=== PATIENT | female | born 1960 | race Caucasian/White ===

== ENCOUNTER → 2017-04-30 10:09 | Outpatient (POV) | payer MEDICAID, SELFPAY ==
[2017-04-30 10:27] VITALS: BP 102/81; PULSE 55; RESP 16; O2SAT 98; BMI 25.8
--- NOTE | 2017-04-30 11:01 | HMH.PAINSOAP ---
[facility] [place] Pain Management SOAP Note Subjective:: This patient is a pleasant 56-year-old white female who we have been treating for low back pain with lumbar radiculopathy symptoms. She is currently managed with [place] 7.5 mg 1 tablet 4 times a day. She is also on gabapentin 600 mg 3 times a day. These decrease her pain by 50-60%. She has had no side effects and she is able to continue with activities of daily living. She is doing well with her medications. [place] and urine drug screen are all appropriate. [facility] #[id number]. We will refill her medications. We will give her 2 months worth of [place] 7.5 mg 1 tablet 4 times a day. We will see her back in 3 months. She can sampler pickup the third month here in the pain clinic. Objective:: Alert and oriented ?3 no acute distress. Patient has normal gait. Motor strength of the lower extremities is 5/5. There is no gross sensory deficit. 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 Plan:: We will refill her medications. We will give her 2 months worth of [place] 7.5 mg 1 tablet 4 times a day. We will see her back in 3 months. She can sampler pickup the third month here in the pain clinic.
[2017-04-30 13:09] LABS: Amphetamine/Metha Screen,Urine Negative ng/mL (<1000); Barbiturates Screen,Urine Negative ng/mL (<200); Benzodiazepines Screen,Urine Negative ng/mL (200); Cannabinoid Screen,Urine Negative ng/mL (<50); Cocaine Screen,Urine Negative ng/g (<300); Methadone Screen,Urine Negative ng/mL (<300); Opiate Screen,Urine Positive ng/mL (<300); Phencyclidine Screen,Urine Negative ng/mL (<25)
[2017-05-04 13:20] LABS: Codeine Negative (Cutoff=100); Hydrocodone Positive (.); Hydromorphone Negative (Cutoff=100); Morphine Negative (Cutoff=100)
[2017-05-04 18:23] LABS: Opiates Positive (.)
--- NOTE | 2017-05-08 12:11 | PC.PHONENOTE ---
called in RX for gabapentin 600mg TID with 2 refills to [facility]
== END ==
PROVIDERS: Family Provider Emergency Medicine; PCP Nurse Practitioner Family; Visit Provider Anesthesiology
DX: M54.16 Radiculopathy, lumbar region (principal); Z79.899 Other long term (current) drug therapy
CPT/HCPCS: 99212; 80305; 80361; 80365; G0480

== ENCOUNTER → 2017-06-20 10:26 | Outpatient (REF) | payer MEDICAID, SELFPAY ==
[2017-06-20 14:08] LABS: Basophils % 0.7 % (0.1-2.0); Eosinophils # 0.1 K/mm3 (0.0-0.4); Eosinophils % 1.5 % (0.1-12.0); Hematocrit 45.7 % (37.0-47.0); Lymphocytes # 2.7 K/mm3 (0.7-4.5); Mean Corpuscular HGB Conc 32.9 g/dL (31.8-35.4); Mean Corpuscular Hemoglobin 31.3 pg (27.0-31.2); Mean Corpuscular Volume 95.2 fl (81-99); Mean Platelet Volume 8.2 fl (7.4-10.4); Monocytes # 0.4 K/mm3 (0.1-1.0); Monocytes % 5.8 % (1.7-9.3); Neutrophils # 3.3 K/mm3 (1.8-7.8); Platelet Count 304 K/mm3 (142-424); Red Blood Count 4.79 M/mm3 (4.20-5.40); Red Cell Distribution Width 13.3 % (11.5-17.5); White Blood Count 6.5 K/mm3 (4.8-10.8)
[2017-06-20 14:19] LABS: Alanine Aminotransferase 18 U/L (12-78); Albumin Level 3.7 gm/dL (3.4-5.0); Albumin/Globulin Ratio 0.9 (1.1-1.8); Alkaline Phosphatase 159 U/L (46-116); Anion Gap 13.5 mEq/L (5-15); Aspartate Amino Transferase 21 U/L (15-37); Bilirubin,Total 0.4 mg/dL (0.2-1.0); Blood Urea Nitrogen 9 mg/dL (7-18); Calcium 9.5 mg/dL (8.5-10.1); Carbon Dioxide 30 mmol/L (21.0-32.0); Chloride 104 mmol/L (98-107); Chol/HDL Ratio 5.2 (1-3.5); Cholesterol 257 mg/dL (140-200); Creatinine,Serum 0.98 mg/dL (0.55-1.02); Estimated Glomerular Filt Rate 59 ml/min (>60); Free T4 (Free Thyroxine) 1.35 ng/dl (0.76-1.46); GFR (African American) 71 ML/MIN (>60); Globulin 3.9 gm/dl (1.3-3.2); Glucose 90 mg/dL (74-106); HDL Cholesterol 49 mg/dL (29-89); LDL Cholesterol 172 mg/dL (0-130); Potassium 4.5 mmoL/L (3.5-5.1); Sodium 143 mmol/L (136-145); Thyroid Stimulating Hormone 1.96 uIU/ml (0.358-3.740); Total Protein,Serum 7.6 gm/dL (6.4-8.2); Triglycerides 182 mg/dL (30-200); VLDL Cholesterol 36 mg/dL (0-40)
[2017-06-21 06:24] LABS: Vitamin D 25 Hydroxy 15.4 ng/mL (30.0-100.0)
== END ==
LOC: LAB 10:26
PROVIDERS: Visit Provider Emergency Medicine
DX: E03.9 Hypothyroidism, unspecified (principal); R53.83 Other fatigue; E55.9 Vitamin D deficiency, unspecified
CPT/HCPCS: 80053; 80061; 82652; 84439; 84443; 85025

== ENCOUNTER → 2017-07-30 08:36 | Outpatient (POV) | payer MEDICAID, SELFPAY ==
[2017-07-30 08:46] VITALS: BP 110/70; PULSE 60; RESP 18; O2SAT 99; BMI 25.8
--- NOTE | 2017-07-30 09:00 | HMH.PAINSOAP ---
[facility] Pain Management SOAP Note Subjective:: Patient is a pleasant 57-year-old white female who presents today for medication refills. Patient is currently being treated for pain secondary to degenerative disc disease of the lumbar spine with lumbar radiculopathy symptoms. Patient has had injections in the past with good relief. She is currently being medically managed with [place] 7.5 mg 1 tab p.o. 4 times daily and gabapentin 600 mg 1 tab p.o. 3 times daily. He denies side effects to the medication. She states that helps 80-90% with her pain. Patient's MARINE #[id number] reviewed and appropriate. Since the urine drug screen appropriate in the past. ROS General: no recent weight change, no fever, no sleep disturbances Respiratory: no cough, no shortness of air, no recurring pulmonary infections Cardiovascular/Peripheral Vascular: No chest pain, No palpitations, no edema, no shortness of breath. Gastrointestinal: no incontinence, normal bowel movements reported Genitourinary: no incontinence Musculoskeletal:back Pain Psychiatric: normal mood/ affect Neurological: [denies weakness in extremities], [denies balance issues] Objective:: Physical Exam General: Alert and oriented x3, no acute distress, pleasant and cooperative, [on room air] Lungs: Resps E/U, Symmetrical chest expansion, Eyes: PERRL Musculoskeletal: Flexion and extension of lumbar spine somewhat guarded secondary to pain, deep tendon reflexes normal, strength in upper and lower extremities [5/5], slightly antalgic gait noted Neurological: speech clear, kennel keeper equal, no gross sensory deficits Assessment:: Degenerative disease of the lumbar spine, lumbar radiculopathy Plan:: We will refill her medications we will give HER-2 months worth of the [place] 7.5 mg 1 tab p.o. 4 times daily and gabapentin 600 mg 1 tab p.o. 3 times daily. Patient's MARINE and UDS reviewed. Dr. Watson is reviewed this chart and agrees with this plan of care. We will follow-up with her in 3 months. Patient can peanut picker her third month in the interim. Patient has been instructed to call the office if she has any issues prior to her next appointment. Patient has been prescribed a controlled substance after being counseled on the medication, medication safety, and possible side effects. MARINE report has been obtained and reviewed prior to prescription and found to be appropriate. Opioid contract was reviewed and signed by the patient, and that they have agreed to all of the terms set forth by our compliance program. This note was dictated using voice recognition software and may contain errors or omissions
--- NOTE | 2017-07-30 09:05 | P.CONS_ITS ---
[facility] Pain Management SOAP Note Subjective:: Patient is a pleasant 57-year-old white female who presents today for medication refills. Patient is currently being treated for pain secondary to degenerative disc disease of the lumbar spine with lumbar radiculopathy symptoms. Patient has had injections in the past with good relief. She is currently being medically managed with [place] 7.5 mg 1 tab p.o. 4 times daily and gabapentin 600 mg 1 tab p.o. 3 times daily. He denies side effects to the medication. She states that helps 80-90% with her pain. Patient's MARINE # [id number] reviewed and appropriate. Since the urine drug screen appropriate in the past. ROS General: no recent weight change, no fever, no sleep disturbances Respiratory: no cough, no shortness of air, no recurring pulmonary infections Cardiovascular/Peripheral Vascular: No chest pain, No palpitations, no edema, no shortness of breath. Gastrointestinal: no incontinence, normal bowel movements reported Genitourinary: no incontinence Musculoskeletal:back Pain Psychiatric: normal mood/ affect Neurological: [denies weakness in extremities], [denies balance issues] Objective:: Physical Exam General: Alert and oriented x3, no acute distress, pleasant and cooperative, [ on room air] Lungs: Resps E/U, Symmetrical chest expansion, Eyes: PERRL Musculoskeletal: Flexion and extension of lumbar spine somewhat guarded secondary to pain, deep tendon reflexes normal, strength in upper and lower extremities [5/5], slightly antalgic gait noted Neurological: speech clear, natural resource specialist equal, no gross sensory deficits Assessment:: Degenerative disease of the lumbar spine, lumbar radiculopathy Plan:: We will refill her medications we will give HER-2 months worth of the [place] 7.5 mg 1 tab p.o. 4 times daily and gabapentin 600 mg 1 tab p.o. 3 times daily. Patient's MARINE and UDS reviewed. Dr. Watson is reviewed this chart and agrees with this plan of care. We will follow-up with her in 3 months. Patient can pick pulling machine operator her third month in the interim. Patient has been instructed to call the office if she has any issues prior to her next appointment. Patient has been prescribed a controlled substance after being counseled on the medication, medication safety, and possible side effects. MARINE report has been obtained and reviewed prior to prescription and found to be appropriate. Opioid contract was reviewed and signed by the patient, and that they have agreed to all of the terms set forth by our compliance program. This note was dictated using voice recognition software and may contain errors or omissions
== END ==
PROVIDERS: Family Provider Emergency Medicine; PCP Nurse Practitioner Family; Visit Provider Clinical Nurse Specialist Family Health
DX: M54.16 Radiculopathy, lumbar region (principal)
CPT/HCPCS: 99212

== ENCOUNTER → 2017-10-01 10:40 | Outpatient (CLI) | payer MEDICAID, SELFPAY ==
[2017-10-01 12:51] LABS: Amphetamine/Metha Screen,Urine Negative ng/mL (<1000); Barbiturates Screen,Urine Negative ng/mL (<200); Benzodiazepines Screen,Urine Negative ng/mL (<200); Cannabinoid Screen,Urine Negative ng/mL (<50); Cocaine Screen,Urine Negative ng/mL (<300); Methadone Screen,Urine Negative ng/mL (<300); Opiate Screen,Urine Positive ng/mL (<300); Phencyclidine Screen,Urine Negative ng/mL (<25)
[2017-10-08 13:10] LABS: Codeine Negative (Cutoff=100); Hydrocodone Positive (.); Hydromorphone Positive (.); Morphine Negative (Cutoff=100)
[2017-10-10 08:44] LABS: Opiates Positive (.)
== END ==
PROVIDERS: Visit Provider Clinical Nurse Specialist Family Health
DX: Z79.899 Other long term (current) drug therapy (principal)
CPT/HCPCS: 80305; 80361; 80365; G0480

== ENCOUNTER → 2017-10-29 08:38 | Outpatient (POV) | payer MEDICAID, SELFPAY ==
[2017-10-29 09:06] VITALS: BP 101/64; PULSE 68; RESP 18; O2SAT 99; BMI 24.5
--- NOTE | 2017-10-29 09:13 | HMH.PAINSOAP ---
[facility] Pain Management SOAP Note Subjective:: Patient is a pleasant 57-year-old white female who presents today for medication refills. Patient is currently being managed for pain secondary to degenerative disc disease lumbar spine with lumbar radiculopathy. Patient is currently on [place] 7.5 mg 1 p.o. 4 times daily along with gabapentin 600 mg 1 tab p.o. 3 times daily. Patient states it helps up to 80%. Patient's MARINE #[id number] reviewed and appropriate. Patient's urine drug screen in the past has been appropriate. Patient has had injections in the past with good relief. Patient states she has been having some mid back pain during times of standing for long periods and helping her grandchildren with homework. Patient and I discussed adding Voltaren gel and an additional gabapentin to her regimen. Patient is interested in this. She rates her pain a 5 out of 10 today she denies side effects to any of her medications. ROS General: no recent weight change, no fever, no sleep disturbances Respiratory: no cough, no shortness of air, no recurring pulmonary infections Cardiovascular/Peripheral Vascular: No chest pain, No palpitations, no edema, no shortness of breath. Gastrointestinal: no incontinence, normal bowel movements reported Genitourinary: no incontinence Musculoskeletal: Back pain Psychiatric: normal mood/ affect Neurological: [denies weakness in extremities], [denies balance issues] Objective:: Physical Exam General: Alert and oriented x3, no acute distress, pleasant and cooperative, [on room air] Lungs: Resps E/U, Symmetrical chest expansion, Eyes: PERRL Musculoskeletal: Flexion and extension of lumbar spine somewhat guarded secondary to pain, deep tendon reflexes normal, strength in upper and lower extremities [5/5], slightly antalgic gait noted Neurological: speech clear, integrity analyst equal, no gross sensory deficits Assessment:: Degenerative disc disease of lumbar spine with lumbar radiculopathy Plan:: We will refill the patient's [place] 7.5 mg 1 tab p.o. 4 times daily and increase her gabapentin to 600 mg 1 p.o. 4 times daily. We will also call in Voltaren gel 1% 4 g applied to the painful area twice daily. We will give her 2 months worth of prescriptions and she can bead picker the third month in the interim. Dr. Watson is reviewed this chart and agrees with this plan of care. Patient has been prescribed a controlled substance after being counseled on the medication, medication safety, and possible side effects. MARINE report has been obtained and reviewed prior to prescription and found to be appropriate. Opioid contract was reviewed and signed by the patient, and that they have agreed to all of the terms set forth by our compliance program. This note was dictated using voice recognition software and may contain errors or omissions
--- NOTE | 2017-10-29 09:16 | P.CONS_ITS ---
[facility] Pain Management SOAP Note Subjective:: Patient is a pleasant 57-year-old white female who presents today for medication refills. Patient is currently being managed for pain secondary to degenerative disc disease lumbar spine with lumbar radiculopathy. Patient is currently on [place] 7.5 mg 1 p.o. 4 times daily along with gabapentin 600 mg 1 tab p.o. 3 times daily. Patient states it helps up to 80%. Patient's MARINE #[id number] reviewed and appropriate. Patient's urine drug screen in the past has been appropriate. Patient has had injections in the past with good relief. Patient states she has been having some mid back pain during times of standing for long periods and helping her grandchildren with homework. Patient and I discussed adding Voltaren gel and an additional gabapentin to her regimen. Patient is interested in this. She rates her pain a 5 out of 10 today she denies side effects to any of her medications. ROS General: no recent weight change, no fever, no sleep disturbances Respiratory: no cough, no shortness of air, no recurring pulmonary infections Cardiovascular/Peripheral Vascular: No chest pain, No palpitations, no edema, no shortness of breath. Gastrointestinal: no incontinence, normal bowel movements reported Genitourinary: no incontinence Musculoskeletal: Back pain Psychiatric: normal mood/ affect Neurological: [denies weakness in extremities], [denies balance issues] Objective:: Physical Exam General: Alert and oriented x3, no acute distress, pleasant and cooperative, [on room air] Lungs: Resps E/U, Symmetrical chest expansion, Eyes: PERRL Musculoskeletal: Flexion and extension of lumbar spine somewhat guarded secondary to pain, deep tendon reflexes normal, strength in upper and lower extremities [5/5], slightly antalgic gait noted Neurological: speech clear, repair table operator equal, no gross sensory deficits Assessment:: Degenerative disc disease of lumbar spine with lumbar radiculopathy Plan:: We will refill the patient's [place] 7.5 mg 1 tab p.o. 4 times daily and increase her gabapentin to 600 mg 1 p.o. 4 times daily. We will also call in Voltaren gel 1% 4 g applied to the painful area twice daily. We will give her 2 months worth of prescriptions and she can milk pickup driver the third month in the interim. Dr. Watson is reviewed this chart and agrees with this plan of care. Patient has been prescribed a controlled substance after being counseled on the medication, medication safety, and possible side effects. MARINE report has been obtained and reviewed prior to prescription and found to be appropriate. Opioid contract was reviewed and signed by the patient, and that they have agreed to a ll of the terms set forth by our compliance program. This note was dictated using voice recognition software and may contain errors or omissions
== END ==
PROVIDERS: Family Provider Emergency Medicine; PCP Nurse Practitioner Family; Visit Provider Clinical Nurse Specialist Family Health
DX: M51.16 Intervertebral disc disorders with radiculopathy, lumbar region (principal)
CPT/HCPCS: 99213

== ENCOUNTER → 2018-01-21 08:41 | Outpatient (POV) | payer MEDICAID, SELFPAY ==
[2018-01-21 09:28] VITALS: BP 129/76; PULSE 63; RESP 18; O2SAT 98; BMI 24.4
--- NOTE | 2018-01-21 09:41 | HMH.PAINSOAP ---
[facility] Pain Management SOAP Note Subjective:: Patient is a pleasant 57-year-old white female who presents today for medication refills. Patient is currently being managed for pain secondary to degenerative disc disease lumbar spine with lumbar radiculopathy. She is currently rating her pain a 3 out of 10 and states she is doing well on her regimen of [place] 7.5 mg 1 p.o. 4 times daily gabapentin 600 mg 1 p.o. 4 times a day and Voltaren gel. She states it helps up to 80%. MARINE #[id number] reviewed and appropriate. Patient's urine drug screen reviewed and appropriate in the past. ROS General: no recent weight change, no fever, no sleep disturbances Respiratory: no cough, no shortness of air, no recurring pulmonary infections Cardiovascular/Peripheral Vascular: No chest pain, No palpitations, no edema, no shortness of breath. Gastrointestinal: no incontinence, normal bowel movements reported Genitourinary: no incontinence Musculoskeletal: Back pain Psychiatric: normal mood/ affect Neurological: [denies weakness in extremities], [denies balance issues] Objective:: Physical Exam General: Alert and oriented x3, no acute distress, pleasant and cooperative, [on room air] Lungs: Resps E/U, Symmetrical chest expansion, Eyes: PERRL Musculoskeletal: Flexion and extension of lumbar spine somewhat guarded secondary to pain, deep tendon reflexes normal, strength in upper and lower extremities [5/5], slightly antalgic gait noted Neurological: speech clear, biomedical field service engineer equal, no gross sensory deficits Assessment:: Degenerative disc disease lumbar spine with lumbar radiculopathy Plan:: We will refill the patient's [place] 7.5 mg 1 tab p.o. 4 times daily and increase her gabapentin to 800 mg 1 p.o. 4 times a day. She will continue with her Voltaren gel. We will give her 2 months worth of prescriptions she can pick her third month at the in the interim. Dr. Watson is reviewed this chart and agrees with this plan of care. Patient has been prescribed a controlled substance after being counseled on the medication, medication safety, and possible side effects. MARINE report has been obtained and reviewed prior to prescription and found to be appropriate. Opioid contract was reviewed and signed by the patient, and that they have agreed to all of the terms set forth by our compliance program. This note was dictated using voice recognition software and may contain errors or omissions
--- NOTE | 2018-01-21 09:45 | P.CONS_ITS ---
[facility] Pain Management SOAP Note Subjective:: Patient is a pleasant 57-year-old white female who presents today for medication refills. Patient is currently being managed for pain secondary to degenerative disc disease lumbar spine with lumbar radiculopathy. She is currently rating her pain a 3 out of 10 and states she is doing well on her regimen of [place] 7.5 mg 1 p.o. 4 times daily gabapentin 600 mg 1 p.o. 4 times a day and Voltaren gel. She states it helps up to 80%. MARINE #[id number] reviewed and appropriate. Patient's urine drug screen reviewed and appropriate in the past. ROS General: no recent weight change, no fever, no sleep disturbances Respiratory: no cough, no shortness of air, no recurring pulmonary infections Cardiovascular/Peripheral Vascular: No chest pain, No palpitations, no edema, no shortness of breath. Gastrointestinal: no incontinence, normal bowel movements reported Genitourinary: no incontinence Musculoskeletal: Back pain Psychiatric: normal mood/ affect Neurological: [denies weakness in extremities], [denies balance issues] Objective:: Physical Exam General: Alert and oriented x3, no acute distress, pleasant and cooperative, [on room air] Lungs: Resps E/U, Symmetrical chest expansion, Eyes: PERRL Musculoskeletal: Flexion and extension of lumbar spine somewhat guarded secondary to pain, deep tendon reflexes normal, strength in upper and lower extremities [5/5], slightly antalgic gait noted Neurological: speech clear, user support analyst supervisor equal, no gross sensory deficits Assessment:: Degenerative disc disease lumbar spine with lumbar radiculopathy Plan:: We will refill the patient's [place] 7.5 mg 1 tab p.o. 4 times daily and increase her gabapentin to 800 mg 1 p.o. 4 times a day. She will continue with her Voltaren gel. We will give her 2 months worth of prescriptions she can pick her third month at the in the interim. Dr. Watson is reviewed this chart and agrees with this plan of care. Patient has been prescribed a controlled substance after being counseled on the medication, medication safety, and possible side effects. MARINE report has been obtained and reviewed prior to prescription and found to be appropriate. Opioid contract was reviewed and signed by the patient, and that they have agreed to all of the terms set forth by our compliance program. This note was dictated using voice recognition software and may contain errors or omissions
[2018-01-21 11:14] LABS: Amphetamine/Metha Screen,Urine Negative ng/mL (<1000); Barbiturates Screen,Urine Negative ng/mL (<200); Benzodiazepines Screen,Urine Negative ng/mL (<200); Cannabinoid Screen,Urine Negative ng/mL (<50); Cocaine Screen,Urine Negative ng/mL (<300); Methadone Screen,Urine Negative ng/mL (<300); Opiate Screen,Urine Positive ng/mL (<300); Phencyclidine Screen,Urine Negative ng/mL (<25)
[2018-01-27 10:08] LABS: Codeine Negative (Cutoff=100); Hydrocodone Positive (.); Hydromorphone Positive (.); Morphine Negative (Cutoff=100)
[2018-01-28 06:30] LABS: Opiates Positive (.)
== END ==
PROVIDERS: PCP Emergency Medicine; Visit Provider Clinical Nurse Specialist Family Health
DX: M51.16 Intervertebral disc disorders with radiculopathy, lumbar region (principal); Z79.899 Other long term (current) drug therapy
CPT/HCPCS: 80305; 80361; 80365; 99213; G0480

== ENCOUNTER → 2018-04-22 08:54 | Outpatient (POV) | payer MEDICAID, SELFPAY ==
[2018-04-22 09:10] VITALS: BP 154/96; PULSE 68; RESP 18; O2SAT 98; BMI 23.2
--- NOTE | 2018-04-22 09:11 | HMH.PAINSOAP ---
[facility] Pain Management SOAP Note Subjective:: Patient is a pleasant 58-year-old white female who presents today for follow-up and medication refills. She is currently on [place] 7.5 mg 1 tab p.o. 4 times daily along with gabapentin 800 mg 1 p.o. 4 times daily she is also utilizing Voltaren gel. Patient states she is doing extremely well rating her pain a 3 out of 10 however she does have quite a few muscle spasms in her back. Patient denies side effects from medication [place] reviewed and appropriate. ROS General: no recent weight change, no fever, no sleep disturbances Respiratory: no cough, no shortness of air, no recurring pulmonary infections Cardiovascular/Peripheral Vascular: No chest pain, No palpitations, no edema, no shortness of breath. Gastrointestinal: no incontinence, normal bowel movements reported Genitourinary: no incontinence Musculoskeletal: Back pain, leg pain Psychiatric: normal mood/ affect Neurological: [denies weakness in extremities], [denies balance issues] Objective:: Physical Exam General: Alert and oriented x3, no acute distress, pleasant and cooperative, [on room air] Lungs: Resps E/U, Symmetrical chest expansion, Eyes: PERRL Musculoskeletal: Flexion and extension of lumbar spine somewhat guarded secondary to pain, deep tendon reflexes normal, strength in upper and lower extremities [5/5], slightly antalgic gait noted Neurological: speech clear, physics department chair equal, no gross sensory deficits Assessment:: Degenerative disc disease lumbar spine with lumbar radiculopathy Plan:: We will refill the patient's [place] 7.5 mg 1 tab p.o. 4 times daily along with her gabapentin 800 mg 1 p.o. 4 times daily and Voltaren gel. We will also start her on Zanaflex 2 mg daily as needed. We will give HER-2 months worth of prescriptions and she can picking supervisor the third month in the interim. Patient has been prescribed a controlled substance after being counseled on the medication, medication safety, and possible side effects. MARINE report has been obtained and reviewed prior to prescription and found to be appropriate. Opioid contract was reviewed and signed by the patient, and that they have agreed to all of the terms set forth by our compliance program. Dr. Watson has reviewed this note and agrees with this plan of care. This note was dictated using voice recognition software and may contain errors or omissions
[2018-04-22 11:36] VITALS: BP 164/86; PULSE 78; RESP 18; O2SAT 98; BMI 32.5
--- NOTE | 2018-05-01 10:14 | PC.PHONENOTE ---
called in Rx for Gabapentin 800mg QID with 2 refills to pt's pharmacy per provider order.
== END ==
PROVIDERS: PCP Emergency Medicine; Visit Provider Clinical Nurse Specialist Family Health
DX: M51.16 Intervertebral disc disorders with radiculopathy, lumbar region (principal)
CPT/HCPCS: 99213

== ENCOUNTER → 2018-06-25 09:54 | Outpatient (CLI) | payer MEDICAID, SELFPAY ==
[2018-06-25 12:52] LABS: Amphetamine/Metha Screen,Urine Negative ng/mL (<1000); Barbiturates Screen,Urine Negative ng/mL (<200); Benzodiazepines Screen,Urine Negative ng/mL (<200); Cannabinoid Screen,Urine Negative ng/mL (<50); Cocaine Screen,Urine Negative ng/mL (<300); Methadone Screen,Urine Negative ng/mL (<300); Opiate Screen,Urine Positive ng/mL (<300); Phencyclidine Screen,Urine Negative ng/mL (<25)
[2018-07-01 12:09] LABS: Codeine Negative (Cutoff=100); Hydrocodone Positive (.); Hydromorphone Positive (.); Morphine Negative (Cutoff=100)
[2018-07-01 12:58] LABS: Opiates Positive (.)
== END ==
PROVIDERS: Visit Provider Clinical Nurse Specialist Family Health
DX: Z79.899 Other long term (current) drug therapy (principal)
CPT/HCPCS: 80305; 80361; 80365; G0480

== ENCOUNTER → 2018-07-15 09:25 | Outpatient (POV) | payer MEDICAID, SELFPAY ==
[2018-07-15 09:32] VITALS: BP 100/50; PULSE 62; RESP 18; O2SAT 98; BMI 23.3
--- NOTE | 2018-07-15 09:34 | HMH.PAINSOAP ---
[facility] Pain Management SOAP Note Subjective:: Patient is a pleasant 51-year-old white female who presents today for follow-up and medication refills. She rates her pain a 3 out of 10 today. She is been more active with the weather improving, and states that she is spending a lot of time outdoors with her grandson. The patient currently is on [place] 7.5 mg 1 p.o. 4 times daily, and Voltaren gel. Patient denies any side effects from medication. Marine reviewed and appropriate. ROS General: no recent weight change, no fever, no sleep disturbances Respiratory: no cough, no shortness of air, no recurring pulmonary infections Cardiovascular/Peripheral Vascular: No chest pain, No palpitations, no edema, no shortness of breath. Gastrointestinal: no incontinence, normal bowel movements reported Genitourinary: no incontinence Musculoskeletal: Back pain, leg pain Psychiatric: normal mood/ affect, [denies depression], [denies anxiety] Neurological: [denies weakness in extremities], [denies balance issues] Objective:: Physical Exam General: Alert and oriented x3, no acute distress, pleasant and cooperative, on room air Lungs: Resps E/U, Symmetrical chest expansion, Eyes: PERRL Musculoskeletal: Flexion and extension of bar spine somewhat guarded secondary to pain, deep tendon reflexes normal, strength in upper and lower extremities [5/5], [abnormal gait noted] Neurological: speech clear, apprentice plumber equal, no gross sensory deficits Assessment:: Degenerative disc disease lumbar spine and lumbar radiculopathy Plan:: We will refill the patient's [place] 7.5 mg p.o. 4 times daily. He also fill her gabapentin 800 mg 1 p.o. 4 times daily and her Voltaren gel. We will give her 2 months worth of prescriptions and she can filler picker the third month in the interim. Patient has been prescribed a controlled substance after being counseled on the medication, medication safety, and possible side effects. MARINE report has been obtained and reviewed prior to prescription and found to be appropriate. Opioid contract was reviewed and signed by the patient, and that they have agreed to all of the terms set forth by our compliance program. Dr. Watson has reviewed this note and agrees with this plan of care. This note was dictated using voice recognition software and may contain errors or omissions
--- NOTE | 2018-07-15 09:37 | P.CONS_ITS ---
[facility] Pain Management SOAP Note Subjective:: Patient is a pleasant 51-year-old white female who presents today for follow-up and medication refills. She rates her pain a 3 out of 10 today. She is been more active with the weather improving, and states that she is spending a lot of time outdoors with her grandson. The patient currently is on [place] 7.5 mg 1 p.o. 4 times daily, and Voltaren gel. Patient denies any side effects from medication. Marine reviewed and appropriate. ROS General: no recent weight change, no fever, no sleep disturbances Respiratory: no cough, no shortness of air, no recurring pulmonary infections Cardiovascular/Peripheral Vascular: No chest pain, No palpitations, no edema, no shortness of breath. Gastrointestinal: no incontinence, normal bowel movements reported Genitourinary: no incontinence Musculoskeletal: Back pain, leg pain Psychiatric: normal mood/ affect, [denies depression], [denies anxiety] Neurological: [denies weakness in extremities], [denies balance issues] Objective:: Physical Exam General: Alert and oriented x3, no acute distress, pleasant and cooperative, on room air Lungs: Resps E/U, Symmetrical chest expansion, Eyes: PERRL Musculoskeletal: Flexion and extension of bar spine somewhat guarded secondary to pain, deep tendon reflexes normal, strength in upper and lower extremities [5/5], [abnormal gait noted] Neurological: speech clear, ceramic tiler equal, no gross sensory deficits Assessment:: 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 4 times daily. He also fill her gabapentin 800 mg 1 p.o. 4 times daily and her Voltaren gel. 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 Patient has been prescribed a controlled substance after being counseled on the medication, medication safety, and possible side effects. MARINE report has been obtained and reviewed prior to prescription and found to be appropriate. Opioid contract was reviewed and signed by the patient, and that they have agreed to all of the terms set forth by our compliance program. Dr. Watson has reviewed this note and agrees with this plan of care. This note was dictated using voice recognition software and may contain errors or omissions
== END ==
PROVIDERS: PCP Emergency Medicine; Visit Provider Clinical Nurse Specialist Family Health
DX: M51.16 Intervertebral disc disorders with radiculopathy, lumbar region (principal)
CPT/HCPCS: 99212

== ENCOUNTER → 2018-10-21 08:38 | Outpatient (POV) | payer MEDICAID, SELFPAY ==
[2018-10-21 09:05] VITALS: BP 111/53; PULSE 57; RESP 18; O2SAT 98; BMI 24.2
--- NOTE | 2018-10-21 09:33 | P.CONS_ITS ---
[facility] Pain Management SOAP Note Subjective:: Patient is a pleasant 58-year-old white female who presents today for medication refills. She rates her pain today 3 out of 10 which is her baseline. Patient currently on [place] 7.5 mg 1 p.o. 4 times daily and Voltaren gel she denies side effects from her medication and states she is doing well. Marine #[id number] reviewed and appropriate urine drug screens have been appropriate to she is also on gabapentin 800 mg 1 p.o. 4 times daily. ROS General: no recent weight change, no fever, no sleep disturbances Respiratory: no cough, no shortness of air, no recurring pulmonary infections Cardiovascular/Peripheral Vascular: No chest pain, No palpitations, no edema, no shortness of breath. Gastrointestinal: no incontinence, normal bowel movements reported Genitourinary: no incontinence Musculoskeletal: Back pain, leg pain Psychiatric: normal mood/ affect Neurological: [denies weakness in extremities], [denies balance issues] Objective:: Physical Exam General: Alert and oriented x3, no acute distress, pleasant and cooperative, [on room air] Lungs: Resps E/U, Symmetrical chest expansion, Eyes: PERRL Musculoskeletal: Flexion and extension of lumbar spine somewhat guarded secondary to pain, deep tendon reflexes normal, strength in upper and lower extr emities [5/5], slightly antalgic gait noted Neurological: speech clear, corporate trainer equal, no gross sensory deficits Assessment:: Degenerative disc disease lumbar spine with lumbar radiculopathy Plan:: We will refill the patient's gabapentin and [place] 7.5 mg 1 p.o. 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 She is been instructed to call the office if she has any issues prior to her next appointment. Patient has been prescribed a controlled substance after being counseled on the medication, medication safety, and possible side effects. MARINE report has been obtained and reviewed prior to prescription and found to be appropriate. Opioid contract was reviewed and signed by the patient, and that they have agreed to all of the terms set forth by our compliance program. Dr. Watson has reviewed this note and agrees with this plan of care. This note was dictated using voice recognition software and may contain errors or omissions Pain Management Hx Components *Have you ever received a pneumonia vaccine?: No *Have you received a flu vaccine this season?: No - *Social History *Occupational Status:: other *Travel in the last 8 weeks: None
== END ==
PROVIDERS: PCP Emergency Medicine; Visit Provider Clinical Nurse Specialist Family Health
DX: M51.16 Intervertebral disc disorders with radiculopathy, lumbar region (principal)
CPT/HCPCS: 99212

== ENCOUNTER → 2018-11-19 14:46 | Outpatient (CLI) | payer MEDICAID, SELFPAY ==
[2018-11-19 16:22] LABS: Amphetamine/Metha Screen,Urine Negative ng/mL (<1000); Barbiturates Screen,Urine Negative ng/mL (<200); Benzodiazepines Screen,Urine Negative ng/mL (<200); Cannabinoid Screen,Urine Negative ng/mL (<50); Cocaine Screen,Urine Negative ng/mL (<300); Methadone Screen,Urine Negative ng/mL (<300); Opiate Screen,Urine Positive ng/mL (<300); Phencyclidine Screen,Urine Negative ng/mL (<25)
[2018-11-24 09:24] LABS: Codeine Negative (Cutoff=100); Hydrocodone Positive (.); Hydromorphone Positive (.); Morphine Negative (Cutoff=100)
[2018-11-24 17:19] LABS: Opiates Positive (.)
== END ==
PROVIDERS: Visit Provider Clinical Nurse Specialist Family Health
DX: Z79.899 Other long term (current) drug therapy (principal)
CPT/HCPCS: 80305; 80361; 80365; G0480

== ENCOUNTER → 2019-01-13 11:00 | Outpatient (POV) | payer MEDICAID, SELFPAY ==
[2019-01-13 11:30] VITALS: BP 100/55; PULSE 73; RESP 18; O2SAT 98; BMI 25.0
--- NOTE | 2019-01-13 12:53 | P.CONS_ITS ---
[facility] Pain Management SOAP Note Subjective:: Patient is a pleasant 58-year-old white female who presents today for medication refills. She rates her pain today 3 out of 10 which is her baseline. She is currently being medicated with [place] 7.5 mg 1 p.o. 4 times daily and Voltaren gel. She denies side effects from her medication and states she is overall doing well. She states that her medication helps up to 80%. Marine #[id number] reviewed and appropriate. Urine drug screens have been appropriate. She is also on gabapentin 800 mg 1 p.o. 4 times daily. ROS General: no recent weight change, no fever, no sleep disturbances Respiratory: no cough, no shortness of air, no recurring pulmonary infections Cardiovascular/Peripheral Vascular: No chest pain, No palpitations, no edema, no shortness of breath. Gastrointestinal: no new onset incontinence, normal bowel movements reported Genitourinary: no new onset incontinence Musculoskeletal: Back pain, leg pain Psychiatric: normal mood/ affect Neurological: [denies new onset weakness in extremities], [denies new onset balance issues] Objective:: Physical Exam General: Alert and oriented x3, no acute distress, pleasant and cooperative, [on room air] Lungs: Resps E/U, Symmetrical chest expansion, Eyes: PERRL Musculoskeletal: Flexion and extension of lumbar spine somewhat guarded secondary to pain, deep tendon reflexes normal, strength in upper and lower extremities [5/5], [abnormal gait noted] Neurological: speech clear, design coordinator equal, no gross sensory deficits Assessment:: Degenerative disc disease lumbar spine with lumbar radiculopathy Plan:: We will refill the patient's gabapentin and [place] 7.5 mg 1 p.o. 4 times daily we will give her 2 months worth of medication and see her back in 3 months. 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 She is been instructed to call the office if she has any issues prior to her next appointment. Patient has been prescribed a controlled substance after being counseled on the medication, medication safety, and possible side effects. MARINE report has been obtained and reviewed prior to prescription and found to be appropriate. Opioid contract was reviewed and signed by the patient, and that they have agreed to all of the terms set forth by our compliance program. Dr. Watson has reviewed this note and agrees with this plan of care. This note was dictated using voice recognition software and may contain errors or omissions [facility] History I have reviewed the patient's past medical history: Yes Medical History: Reports:: Chronic Obstructive Pulmonary Disease (COPD), Gastroesophageal Reflux Disease(GERD) *Have you ever received a pneumonia vaccine?: Yes *Have you received a flu vaccine this season?: Yes Other Medical History: Reports: Thyroid Disease Other Surgeries: Yes: No Previous Surgery, Tubal Ligation Amputation: No Fractures: No - *Social History Smoking Status: Current every day smoker Tobacco Type: cigarettes # Packs/Day (cigarettes): 2 Alcohol Intake: never Substance Use Type: denies use *Occupational Status:: other *Travel in the last 8 weeks: None Family Hx:: Thyroid Disorder, Asthma
--- NOTE | 2019-02-03 14:58 | PC.NURSE ---
GABAPENTIN 800MG QID CALLED INTO [facility] PER PROVIDER ORDER WITH 2 REFILLS
== END ==
PROVIDERS: PCP Emergency Medicine; Visit Provider Clinical Nurse Specialist Family Health
DX: M51.16 Intervertebral disc disorders with radiculopathy, lumbar region (principal)
CPT/HCPCS: 99212

== ENCOUNTER → 2019-03-18 10:23 | Outpatient (POV) | payer MEDICAID, SELFPAY ==
[2019-03-18 10:57] VITALS: BP 92/62; PULSE 71; RESP 18; O2SAT 99; BMI 25.6
--- NOTE | 2019-03-18 12:04 | HMH.PAINSOAP ---
[facility] Pain Management SOAP Note Subjective:: She is a pleasant 59-year-old white female who presents today for medication refills. She currently rates her pain a 3 out of 10 she is being treated for pain secondary to degenerative disc disease lumbar spine with lumbar radiculopathy. She is currently on [place] 7.5 mg 1 p.o. 4 times daily and Voltaren gel. She denies side effects and states the medication helps up to 80%. [facility] #[id number] reviewed and appropriate urine drug screens have been appropriate. She is also on gabapentin 800 mg 1 p.o. 4 times daily. ROS General: no recent weight change, no fever, no sleep disturbances Respiratory: no cough, no shortness of air, no recurring pulmonary infections Cardiovascular/Peripheral Vascular: No chest pain, No palpitations, no edema, no shortness of breath. Gastrointestinal: no new onset incontinence, normal bowel movements reported Genitourinary: no new onset incontinence Musculoskeletal: Back pain, leg pain Psychiatric: normal mood/ affect, [denies depression], [denies anxiety] Neurological: [denies new onset weakness in extremities], [denies new onset balance issues] Objective:: Physical Exam General: Alert and oriented x3, no acute distress, pleasant and cooperative, [on room air] Lungs: Resps E/U, Symmetrical chest expansion, Eyes: PERRL Musculoskeletal: Flexion and extension of lumbar spine somewhat guarded secondary to pain, deep tendon reflexes normal, strength in upper and lower extremities [5/5], [abnormal gait noted] Neurological: speech clear, reflexologist equal, no gross sensory deficits Assessment:: Degenerative disc disease lumbar spine with lumbar radiculopathy Plan:: We will continue her on her [place] 7.5 mg 1 p.o. 4 times daily we will give her 2 months worth medication she can come back in 3 months for reassessment. 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 She has been instructed to call the office if she has any issues prior to her next appointment. Dr. Watson has reviewed this note and agrees with this plan of care. This note was dictated using voice recognition software and may contain errors or omissions [facility] History I have reviewed the patient's past medical history: Yes Medical History: Reports:: Chronic Obstructive Pulmonary Disease (COPD), Gastroesophageal Reflux Disease(GERD) *Have you ever received a pneumonia vaccine?: Yes *Have you received a flu vaccine this season?: Yes Other Medical History: Reports: Thyroid Disease Other Surgeries: Yes: No Previous Surgery, Tubal Ligation Amputation: No Fractures: No - *Social History Smoking Status: Current every day smoker Tobacco Type: cigarettes # Packs/Day (cigarettes): 2 Alcohol Intake: never Substance Use Type: denies use *Occupational Status:: other *Travel in the last 8 weeks: None Family Hx:: Thyroid Disorder, Asthma
[2019-03-18 13:06] LABS: Amphetamine/Metha Screen,Urine Negative ng/mL (<1000); Barbiturates Screen,Urine Negative ng/mL (<200); Benzodiazepines Screen,Urine Negative ng/mL (<200); Cannabinoid Screen,Urine Negative ng/mL (<50); Cocaine Screen,Urine Negative ng/mL (<300); Methadone Screen,Urine Negative ng/mL (<300); Opiate Screen,Urine Positive ng/mL (<300); Phencyclidine Screen,Urine Negative ng/mL (<25)
[2019-03-22 06:22] LABS: Codeine Negative (Cutoff=100); Hydrocodone Positive (.); Hydromorphone Positive (.); Morphine Negative (Cutoff=100)
[2019-03-22 15:30] LABS: Opiates Positive (.)
== END ==
PROVIDERS: PCP Emergency Medicine; Visit Provider Clinical Nurse Specialist Family Health
DX: M51.16 Intervertebral disc disorders with radiculopathy, lumbar region (principal)
CPT/HCPCS: 80305; 80361; 80365; 99212; G0480

== ENCOUNTER → 2019-06-10 09:56 | Outpatient (POV) | payer MEDICAID, SELFPAY ==
[2019-06-10 10:05] VITALS: BP 156/66; PULSE 68; RESP 18; TEMP 36.8; O2SAT 98; BMI 27.4
--- NOTE | 2019-06-10 11:00 | HMH.PAINSOAP ---
[facility] Pain Management SOAP Note Subjective:: Patient is a pleasant 59-year-old white female who presents today for medication refills. She currently rates her pain a 4 out of 10. She is having more pain due to increased activity due to the weather change. She is currently on [place] 7.5 mg 1 p.o. 4 times daily. She denies side effects from medication and states it helps however she would like to discuss a slight increase. Marine #[id number] reviewed and appropriate urine drug screens have been appropriate in the past. She is also on gabapentin 800 mg 1 p.o. 4 times daily. ROS General: no recent weight change, no fever, no sleep disturbances Respiratory: no cough, no shortness of air, no recurring pulmonary infections Cardiovascular/Peripheral Vascular: No chest pain, No palpitations, no edema, no shortness of breath. Gastrointestinal: no new onset incontinence, normal bowel movements reported Genitourinary: no new onset incontinence Musculoskeletal: Back pain, leg pain Psychiatric: normal mood/ affect Neurological: [denies new onset weakness in extremities], [denies new onset balance issues] Objective:: Physical Exam General: Alert and oriented x3, no acute distress, pleasant and cooperative, [on room air] Lungs: Resps E/U, Symmetrical chest expansion, Eyes: PERRL Musculoskeletal: Flexion and extension of lumbar spine somewhat guarded secondary to pain, deep tendon reflexes normal, strength in upper and lower extremities [5/5], slightly antalgic gait noted Neurological: speech clear, buyer assistant equal, no gross sensory deficits Assessment:: Degenerative disc disease lumbar spine with lumbar radiculopathy Plan:: We will increase the patient's to [place] 7.5 mg 5 times a day. We will do an audio check in with the patient and in 1 month reassess her symptoms at that time. Patient's been instructed to call the office if she has any issues prior to her next appointment. Patient has been prescribed a controlled substance after being counseled on the medication, medication safety, and possible side effects. MARINE report has been obtained and reviewed prior to prescription and found to be appropriate. Opioid contract was reviewed and signed by the patient, and that they have agreed to all of the terms set forth by our compliance program. Dr. Watson has reviewed this note and agrees with this plan of care. This note was dictated using voice recognition software and may contain errors or omissions we specifically discussed risk factors for Covid-19 including age, heart or lung disease, diabetes, immunosuppression and travel. We also discussed that NSAIDs may worsen Covid-19 infection symptoms and that they should not be used to treat Covid-19 symptoms. Patient was also informed that corticosteroids in any form oral or injectable will decrease immune response and may increase risk of Covid-[address] Watson has reviewed this patient's chart and this note and agrees with plan of care. Patient has been instructed to call the office if they have any issues prior to the next appointment. [facility] History I have reviewed the patient's past medical history: Yes Medical History: Reports:: Chronic Obstructive Pulmonary Disease (COPD), Gastroesophageal Reflux Disease(GERD) *Have you ever received a pneumonia vaccine?: Yes *Have you received a flu vaccine this season?: Yes Other Medical History: Reports: Thyroid Disease Other Surgeries: Yes: No Previous Surgery, Tubal Ligation Amputation: No Fractures: No - *Social History Smoking Status: Current every day smoker Tobacco Type: cigarettes # Packs/Day (cigarettes): 2 Alcohol Intake: never Substance Use Type: denies use *Occupational Status:: other *Travel in the last 8 weeks: None Family Hx:: Thyroid Disorder, Asthma
== END ==
PROVIDERS: PCP Emergency Medicine; Visit Provider Clinical Nurse Specialist Family Health
DX: M51.16 Intervertebral disc disorders with radiculopathy, lumbar region (principal)
CPT/HCPCS: 99212

== ENCOUNTER → 2019-09-01 08:33 | Outpatient (POV) | payer MEDICAID, SELFPAY ==
--- NOTE | 2019-09-01 09:01 | HMH.PAINSOAP ---
[facility] Pain Management SOAP Note Subjective:: Patient is a pleasant 59-year-old white female who presents today for medication refills. She is being treated for low back pain with lumbar radiculopathy symptoms. Patient rates her pain a 5 out of 10 today. She is currently on [place] 7.5 mg 1 tablet p.o. 4 times daily. She denies any side effects to the medication. The patient's Sky #[id number] has been reviewed and is appropriate. She is also managed with gabapentin 800 mg 1 tablet p.o. 4 times daily. Her morphine equivalent is 68. She will undergo a drug screen today. Review of Systems General: No recent weight changes, no fever, no sleep disturbances Respiratory: No cough, no shortness of air, no recurring pulmonary infections Cardiovascular/peripheral vascular: No chest pain, no palpitations, no edema, no shortness of breath Gastrointestinal: No new onset incontinence, normal bowel movements reported Genitourinary: No new onset incontinence Musculoskeletal: Low back pain Psychiatric: Normal mood/affect Neurological: [Denies weakness in extremities], [denies balance issues] Objective:: Physical exam General: Alert and oriented x3, no acute distress, pleasant and cooperative, [on room air] Lungs: Respirations even and unlabored, symmetrical chest expansion Eyes: PERRL Musculoskeletal: Flexion and extension of lumbar spine somewhat guarded secondary to pain, deep tendon reflexes normal, strength in upper and lower extremities [5/5], [abnormal gait noted] Neurological: Speech clear, psychology lecturer equal, no gross sensory deficit Assessment:: Degenerative disc disease lumbar spine with lumbar radiculopathy symptoms Plan:: We will refill the patient's gabapentin 800 mg 1 tablet p.o. 4 times daily and [place] 7.5 mg 1 tablet p.o. 4 times daily. 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 She has been instructed to contact clinic if she has any concerns before next appointment. The patient and I specifically discussed risk factors for COVID19. These risks include, but are not limited to age greater than 60, heart or lung disease, diabetes, immunosuppression, and travel. We also discussed NSAIDs may worsen COVID19 infection or symptoms. Patient should not use NSAIDs to treat COVID19 signs or symptoms. Patient was also informed that any type of corticosteroid of any form (oral or injection) will decrease the patient's immune system response and may increase the likelihood of COVID19 infection [address] symptoms[address]. Watson has reviewed this note and agrees with this plan of care. This note was dictated using voice recognition software and make contain errors or omissions. [facility] History I have reviewed the patient's past medical history: Yes Medical History: Reports:: Chronic Obstructive Pulmonary Disease (COPD), Gastroesophageal Reflux Disease(GERD) *Have you ever received a pneumonia vaccine?: Yes *Have you received a flu vaccine this season?: Yes Other Medical History: Reports: Thyroid Disease Other Surgeries: Yes: No Previous Surgery, Tubal Ligation Amputation: No Fractures: No - *Social History Smoking Status: Current every day smoker Tobacco Type: cigarettes # Packs/Day (cigarettes): 2 Alcohol Intake: never Substance Use Type: denies use *Occupational Status:: other *Travel in the last 8 weeks: None Family Hx:: Thyroid Disorder, Asthma
[2019-09-01 09:23] VITALS: BP 134/74; PULSE 66; RESP 18; O2SAT 98; BMI 27.4
== END ==
PROVIDERS: PCP Emergency Medicine; Visit Provider Clinical Nurse Specialist Family Health
DX: M51.16 Intervertebral disc disorders with radiculopathy, lumbar region (principal)
CPT/HCPCS: 99212

== ENCOUNTER → 2019-12-01 08:51 | Outpatient (POV) | payer MEDICAID, SELFPAY ==
[2019-12-01 09:01] VITALS: BP 148/75; PULSE 68; RESP 18; O2SAT 98; BMI 25.0
--- NOTE | 2019-12-01 09:14 | P.CONS_ITS ---
[facility] Pain Management SOAP Note Subjective:: Patient is a pleasant 59-year-old white female who presents today for medication refills she is being treated for low back pain secondary to degenerative disc disease and lumbar radiculopathy. Patient is currently on [place] 7.5 mg 1 tab p.o. 4 times daily along with gabapentin 800 mg 1 tab p.o. 4 times daily. She is currently on a morphine equivalent of 38. Patient overall doing well getting 80% relief from her medication. Marine #[id number] reviewed and appropriate. Drug screens have been appropriate. She denies side effects to her medication. ROS General: no recent weight change, no fever, no sleep disturbances Respiratory: no cough, no shortness of air, no recurring pulmonary infections Cardiovascular/Peripheral Vascular: No chest pain, No palpitations, no edema, no shortness of breath. Gastrointestinal: no new onset incontinence, normal bowel movements reported Genitourinary: no new onset incontinence Musculoskeletal: Back pain, leg pain Psychiatric: normal mood/ affect Neurological: [denies new onset weakness in extremities], [denies new onset balance issues] Objective:: Physical Exam General: Alert and oriented x3, no acute distress, pleasant and cooperative, [on room air] Lungs: Resps E/U, Symmetrical chest expansion, Eyes: PERRL Musculoskeletal: Flexion and extension of lumbar spine somewhat guarded secondary to pain, deep tendon reflexes normal, strength in upper and lower extremities [5/5], normal gait noted Neurological: speech clear, stitcher feeder equal, no gross sensory deficits Assessment:: Degenerative disc disease lumbar spine lumbar radiculopathy Plan:: We will refill the patient's [place] 7.5 mg 1 tab p.o. 4 times daily give her 2 months worth of medication she will be seen in 3 months. Patient also will receive gabapentin 800 mg 1 tab p.o. 4 times daily. Patient is instructed call the office if she has any issues prior to next appointment. Dr. Watson has reviewed this note and agrees with this plan of care. This note was dictated using voice recognition software and may contain errors or omissions Patient has been prescribed a controlled substance after being counseled on the medication, medication safety, and possible side effects. MARINE report has been obtained and reviewed prior to prescription and found to be appropriate. Opioid contract was reviewed and signed by the patient, and that they have agreed to all of the terms set forth by our compliance program. [facility] History I have reviewed the patient's past medical history: Yes Medical History: Reports:: Chronic Obstructive Pulmonary Disease (COPD), Gastroesophageal Reflux Disease(GERD) *Have you ever received a pneumonia vaccine?: Yes *Have you received a flu vaccine this season?: No Other Medical History: Reports: Thyroid Disease Other Surgeries: Yes: No Previous Surgery, Tubal Ligation Amputation: No Fractures: No - *Social History Smoking Status: Current every day smoker Tobacco Type: cigarettes # Packs/Day (cigarettes): 2 Alcohol Intake: never Substance Use Type: denies use *Occupational Status:: other *Travel in the last 8 weeks: None Family Hx:: Thyroid Disorder, Asthma
== END ==
PROVIDERS: PCP Emergency Medicine; Visit Provider Clinical Nurse Specialist Family Health
DX: M51.16 Intervertebral disc disorders with radiculopathy, lumbar region (principal)
CPT/HCPCS: 99212

== ENCOUNTER → 2020-03-01 08:41 | Outpatient (POV) | payer MEDICAID, SELFPAY ==
[2020-03-01 08:43] VITALS: BP 119/78; PULSE 67; RESP 18; TEMP 36.8; O2SAT 98; BMI 25.8
--- NOTE | 2020-03-01 08:54 | HMH.PAINSOAP ---
[facility] Pain Management SOAP Note Subjective:: Patient is a pleasant 59-year-old white female who presents today for medication refills. Patient is currently being treated for pain secondary to degenerative disc disease lumbar spine lumbar radiculopathy. She is currently on [place] 7.5 mg 1 tab p.o. 5 times daily and gabapentin 800 mg 1 p.o. 4 times daily. [facility] #[id number] reviewed and appropriate. Her morphine equivalent is 38 she denies side effects from medication it helps her up to 80%. It helps her be more functional. Most of her pains in her low back and bilateral lower extremities ROS General: no recent weight change, no fever, no sleep disturbances Respiratory: no cough, no shortness of air, no recurring pulmonary infections Cardiovascular/Peripheral Vascular: No chest pain, No palpitations, no edema, no shortness of breath. Gastrointestinal: no new onset incontinence, normal bowel movements reported Genitourinary: no new onset incontinence Musculoskeletal: Back pain, leg pain Psychiatric: normal mood/ affect Neurological: [denies new onset weakness in extremities], [denies new onset balance issues] Objective:: Physical Exam General: Alert and oriented x3, no acute distress, pleasant and cooperative, [on room air] Lungs: Resps E/U, Symmetrical chest expansion, Eyes: PERRL Musculoskeletal: Flexion and extension of lumbar spine somewhat guarded secondary to pain, deep tendon reflexes normal, strength in upper and lower extremities [5/5], slightly antalgic gait noted Neurological: speech clear, pile trimmer equal, no gross sensory deficits Assessment:: Degenerative disc disease lumbar spine with lumbar radiculopathy Plan:: We will continue her [place] 7.5 mg 1 p.o. 5 times a day and gabapentin 800 mg 1 p.o. 4 times daily. We will follow up with the patient in 3 months reassess her symptoms at that time she has been instructed to call the office if she has any issues prior to her next appointment. Dr. Watson has reviewed this note and agrees with this plan of care. This note was dictated using voice recognition software and may contain errors or omissions [facility] History I have reviewed the patient's past medical history: Yes Medical History: Reports:: Chronic Obstructive Pulmonary Disease (COPD), Gastroesophageal Reflux Disease(GERD) *Have you ever received a pneumonia vaccine?: Yes *Have you received a flu vaccine this season?: Yes Other Medical History: Reports: Thyroid Disease Other Surgeries: Yes: No Previous Surgery, Tubal Ligation Amputation: No Fractures: No - *Social History Smoking Status: Current every day smoker Tobacco Type: cigarettes # Packs/Day (cigarettes): 2 Alcohol Intake: never Substance Use Type: denies use *Occupational Status:: other *Travel in the last 8 weeks: None Family Hx:: Thyroid Disorder, Asthma
== END ==
PROVIDERS: PCP Emergency Medicine; Visit Provider Clinical Nurse Specialist Family Health
DX: M51.16 Intervertebral disc disorders with radiculopathy, lumbar region (principal)
CPT/HCPCS: 99212; G0463

== ENCOUNTER → 2020-05-31 08:44 | Outpatient (POV) | payer MEDICAID, SELFPAY ==
[2020-05-31 08:56] VITALS: BP 150/71; PULSE 77; RESP 18; O2SAT 98; BMI 25.8
--- NOTE | 2020-05-31 09:06 | P.CONS_ITS ---
[facility] Pain Management SOAP Note Subjective:: Patient is a pleasant 60-year-old white female who presents today for medication refills. She is currently being treated for for pain secondary to degenerative disc disease lumbar spine lumbar radiculopathy. She is currently on [place] 7.5 mg 1 tab p.o. 5 times a day and gabapentin 800 mg 1 p.o. 4 times daily. Patient Marine reviewed per [employer] system. Patient's Marine is appropriate. Morphine equivalent is 38. She denies side effects to her medication. She states it helps up to 80%. She rates her pain a 4 out of 10. ROS General: no recent weight change, no fever, no sleep disturbances Respiratory: no cough, no shortness of air, no recurring pulmonary infections Cardiovascular/Peripheral Vascular: No chest pain, No palpitations, no edema, no shortness of breath. Gastrointestinal: no new onset incontinence, normal bowel movements reported Genitourinary: no new onset incontinence Musculoskeletal: Back pain, leg pain Psychiatric: normal mood/ affect Neurological: [denies new onset weakness in extremities], [denies new onset balance issues] Objective:: Physical Exam General: Alert and oriented x3, no acute distress, pleasant and cooperative, [on room air] Lungs: Resps E/U, Symmetrical chest expansion, Eyes: PERRL Musculoskeletal: Flexion and extension of lumbar spine somewhat guarded secondary to pain, deep tendon reflexes normal, strength in upper and lower extremities [5/5], slightly antalgic gait noted Neurological: speech clear, distribution dispatcher equal, no gross sensory deficits Assessment:: Degenerative disc disease lumbar spine with lumbar radiculopathy and back pain Plan:: We will continue her [place] 7.5 mg 1 p.o. 5 times a day, gabapentin 800 mg 1 p.o. 4 times daily and tizanidine 4 mg 1 p.o. twice daily. We will follow up with her in 3 months reassess her symptoms at that time she has been instructed to call the office if she has any issues prior to her next appointment. Patient has been prescribed a controlled substance after being counseled on the medication, medication safety, and possible side effects. MARINE report has been obtained and reviewed prior to prescription and found to be appropriate. Opioid contract was reviewed and signed by the patient, and that they have agreed to all of the terms set forth by our compliance program. Dr. Watson has reviewed this note and agrees with this plan of care. This note was dictated using voice recognition software and may contain errors or omissions [facility] History I have reviewed the patient's past medical history: Yes Medical History: Reports:: Chronic Obstructive Pulmonary Disease (COPD), Gastroesophageal Reflux Disease(GERD) *Have you ever received a pneumonia vaccine?: Yes *Have you received a flu vaccine this season?: Yes Other Medical History: Reports: Thyroid Disease Other Surgeries: Yes: No Previous Surgery, Tubal Ligation Amputation: No Fractures: No - *Social History Smoking Status: Current every day smoker Tobacco Type: cigarettes # Packs/Day (cigarettes): 2 Alcohol Intake: never Substance Use Type: denies use *Occupational Status:: other *Travel in the last 8 weeks: None Family Hx:: Thyroid Disorder, Asthma
== END ==
PROVIDERS: PCP Emergency Medicine; Visit Provider Clinical Nurse Specialist Family Health
DX: M51.16 Intervertebral disc disorders with radiculopathy, lumbar region (principal)
CPT/HCPCS: 99212; G0463

== ENCOUNTER 2020-08-20 16:23 | Emergency (ER) | payer MEDICAID, SELFPAY ==
[2020-08-20 16:25] VITALS: BP 110/71; PULSE 69; RESP 18; TEMP 36.9; O2SAT 95; BMI 24.5
--- NOTE | 2020-08-20 16:45 | HMH.EDUTC ---
[facility] [place] Clinical Impression: Shingles Qualifiers: Herpes zoster complications: without complications Qualified Code(s): B02.9 - Zoster without complications Disposition: Home, Self-Care Condition on Discharge: Good Instructions: Shingles, DI for Shingles, Acyclovir Additional Instructions: Keep your rash clean and dry. Cover your rash with a bandage or clothing. Do not use bandages that stick to your skin. The sticky part may irritate your skin and make your rash last longer. Wash your hands often. Wash your hands several times each day. Wash after you use the bathroom, change a child's diaper, and before you prepare or eat food. Use soap and water every time. Rub your soapy hands together, lacing your fingers Try not to scratch or pick at the blisters. They will crust over and fall off on their own if you leave them alone. Put cool, wet cloths on the area to relieve pain and itching. You can also use calamine lotion. Try not to use so much lotion that it cakes and is hard to get off. Put cornstarch or baking soda on the sores to help dry them out so they heal faster. Take medication as prescribed Follow up with your Family Doctor if no improvement or any worsening of symptoms Return if needed Prescriptions: Valacyclovir HCl [Valtrex] 1,000 mg PO TID 7 Days #21 tab Transmission Status: Received by [facility] Referrals: Earl Maki MD [Primary Care Provider] - As needed Time of Disposition: 17:05 Medical Decision Making - Sky Inquiry Pt receiving controlled substance: No Sky was queried for this patient: No Vital Signs: 08/20/20 16:25 08/20/20 16:54 Temperature 98.4 F 98.4 F Temperature Source Oral Pulse Rate 69 Pulse Rate [Left Brachial] 69 Respiratory Rate 18 18 Blood Pressure 110/71 Blood Pressure [Left Arm] 110/71 Blood Pressure Mean [Left Arm] 84 Blood Pressure Source [Left Arm] Automatic Cuff Blood Pressure Position [Left Arm] Sitting 02 Sat by Pulse Oximetry 95 Oxygen Delivery Method Room Air Medical Decision Narrative: Medication discussed with pharmacy [facility] [place] - General Stated complaint: spot right leg and foot Time Seen by Provider: 08/20/20 16:45 Mode of Arrival: Ambulatory Source of Information: Patient Limitations: No Limitations Description of Symptoms (Recalled from Triage Doc. by RN): PATIENT C/O REDDENED AREA TO RIGHT LOWER LEG AND 3 ITCHY, RAISED AREAS TO BOTTOM OF RIGHT FOOT SINCE LAST SUNDAY HEENT Symptoms (Recalled from RN notes): No Resp Symptoms (Recalled from RN notes): No Skin Symptoms (Recalled from RN notes): Yes MS Symptoms (Recalled from RN notes): No Functional Status (Recalled from RN notes): WNL - History of Present Illness Provider Complaint: Patient states that she went to the [facility] last week States that she noticed when she got home she had a round area with small blisters in it on her right lower leg and thought something may have bitten her States that area was itchy and would burn when she would scratch it and hurt when she would put a blanket on it States that that area is still there but for the last couple of days she is having similar places on the bottom of her right foot and they are itchy and hurt when she scratches them and starting to spread on the bottom of her foot - Related Data Home Medications Medication Instructions Recorded Confirmed pantoprazole 40 mg tablet,delayed 40 mg PO QAM 04/06/17 10/13/19 release tizanidine 4 mg tablet PO 30 Days #15 tab 05/23/18 10/13/19 gabapentin 800 mg tablet 800 mg PO QID tab 06/27/18 10/13/19 Previous Rx's Medication Instructions Recorded budesonide-formoterol HFA 80 2 puff INHALATION BID #10.2 g 12/14/17 mcg-4.5 mcg/actuation aerosol inhaler fluticasone 250 mcg-salmeterol 50 1 inh INHALATION Q12H #1 each 09/16/18 mcg/dose blistr powdr for inhalation hydroxyzine HCl 50 mg tablet 50 mg PO BID PRN #30 tab 10/13/19 Hydrocodone/Acetaminophen [[place] 1 tab P
[2020-08-20 16:54] VITALS: BP 110/71; PULSE 69; RESP 18; TEMP 36.9; O2SAT 95
== END 2020-08-20 17:10 | disposition home or self-care (01) ==
PROVIDERS: Emergency Provider Nurse Practitioner; PCP Emergency Medicine
DX: B02.9 Zoster without complications (principal); K21.9 Gastro-esophageal reflux disease without esophagitis; J44.9 Chronic obstructive pulmonary disease, unspecified; F17.210 Nicotine dependence, cigarettes, uncomplicated; Z88.0 Allergy status to penicillin

== ENCOUNTER → 2020-08-30 08:51 | Outpatient (POV) | payer MEDICAID, SELFPAY ==
[2020-08-30 09:00] VITALS: BP 156/70; PULSE 67; RESP 18; O2SAT 94; BMI 25.0
--- NOTE | 2020-08-30 09:13 | HMH.PAINSOAP ---
[facility] Pain Management SOAP Note Subjective:: Patient is a pleasant 60-year-old white female who presents today for follow-up and medication refills. The patient is being treated for degenerative disc disease lumbar spine with lumbar radiculopathy symptoms. She is managed with [place] and gabapentin. She says that she is doing well with these medicines. Patient's baseline pain is a 6 out of 10 which is her level today. She says she gets about 60% relief with her medication regimen at this time. She does take [place] 7.5 mg 1 tablet p.o. 5 times daily and gabapentin 800 mg 1 tablet p.o. 4 times daily. She denies any side effects. [facility] #[id number] has been reviewed and is appropriate. Morphine equivalent is 38. Review of Systems General: No recent weight changes, no fever, no sleep disturbances Respiratory: No cough, no shortness of air, no recurring pulmonary infections Cardiovascular/peripheral vascular: No chest pain, no palpitations, no edema, no shortness of breath Gastrointestinal: No new onset incontinence, normal bowel movements reported Genitourinary: No new onset incontinence Musculoskeletal: Low back pain Psychiatric: Normal mood/affect Neurological: [Denies weakness in extremities], [denies balance issues] Objective:: Physical exam General: Alert and oriented x3, no acute distress, pleasant and cooperative, [on room air] Lungs: Respirations even and unlabored, symmetrical chest expansion Eyes: PERRL Musculoskeletal: Flexion and extension of [] lumbar spine somewhat guarded secondary to pain, deep tendon reflexes normal, strength in upper and lower extremities [5/5], [abnormal gait noted] Neurological: Speech clear, maintenance machinist equal, no gross sensory deficit Assessment:: Degenerative disc disease lumbar spine with lumbar radiculopathy symptoms Plan:: We will refill the patient's [place] 7.5 mg 1 tablet p.o. 5 times daily and gabapentin 800 mg 1 tablet p.o. 4 times daily. We will give her a month medication see her back in the clinic in a month for reevaluation of symptoms. Patient has been instructed to contact the clinic with any concerns before the next appointment. Dr. Watson has reviewed this note and agrees with this plan of care. This note was dictated using voice recognition software and make contain errors or omissions. Patient has been prescribed a controlled substance after being counseled on the medication, medication safety, and possible side effects. MARINE report has been obtained and reviewed prior to prescription and found to be appropriate. Opioid contract was reviewed and signed by the patient, and that they have agreed to all of the terms set forth by our compliance program. Risks and benefits of the medication have been explained in detail to the patient. The patient has been advised to consult with his/her primary care provider and pharmacist regarding drug-drug interaction of medications currently prescribed. [facility] History I have reviewed the patient's past medical history: Yes Medical History: Reports:: Chronic Obstructive Pulmonary Disease (COPD), Gastroesophageal Reflux Disease(GERD) *Have you ever received a pneumonia vaccine?: No *Have you received a flu vaccine this season?: No Other Medical History: Reports: Thyroid Disease Other Surgeries: Yes: No Previous Surgery, Tubal Ligation Amputation: No Fractures: No - *Social History Smoking Status: Current every day smoker Tobacco Type: cigarettes # Packs/Day (cigarettes): 2 Alcohol Intake: never Substance Use Type: denies use *Occupational Status:: unemployed *Travel in the last 8 weeks: None Family Hx:: Thyroid Disorder, Asthma
== END ==
PROVIDERS: PCP Emergency Medicine; Visit Provider Clinical Nurse Specialist Family Health
DX: M51.16 Intervertebral disc disorders with radiculopathy, lumbar region (principal)
CPT/HCPCS: 99212; G0463

== ENCOUNTER → 2020-09-30 13:37 | Outpatient (POV) | payer MEDICAID, SELFPAY ==
[2020-09-30 14:00] VITALS: BP 95/62; PULSE 65; RESP 18; O2SAT 94; BMI 24.5
--- NOTE | 2020-09-30 14:29 | P.CONS_ITS ---
[facility] Pain Management SOAP Note Subjective:: Patient is a 60-year-old white female who presents today for medication refills. The patient is being treated for degenerative disc disease lumbar spine with lumbar radiculopathy symptoms. Her pain is a 3 out of 10 today. She is doing well with her medication regimen at this time. She has managed with [place] 7.5 mg 1 tablet p.o. 5 times daily and gabapentin 800 mg 1 tablet p.o. 4 times daily. Patient's Marine #[id number] has been reviewed and is appropriate. Patient's morphine equivalent is 38. She is doing well overall and gets up to 70 to 80% relief with her medication regimen. Review of Systems General: No recent weight changes, no fever, no sleep disturbances Respiratory: No cough, no shortness of air, no recurring pulmonary infections Cardiovascular/peripheral vascular: No chest pain, no palpitations, no edema, no shortness of breath Gastrointestinal: No new onset incontinence, normal bowel movements reported Genitourinary: No new onset incontinence Musculoskeletal: Low back pain Psychiatric: [Normal mood/affect] Neurological: [Denies weakness in extremities], [denies balance issues] Objective:: Physical exam General: Alert and oriented x3, no acute distress, pleasant and cooperative, [on room air] Lungs: Respirations even and unlabored, symmetrical chest expansion Eyes: PERRL Musculoskeletal: Flexion and extension of lumbar [spine] somewhat guarded secondary to pain, strength in upper and lower extremities [5/5], [antalgic gait noted] Neurological: Speech clear, [vendor representatives equal], no gross sensory deficit Assessment:: Degenerative disc disease lumbar spine with lumbar radiculopathy symptoms Plan:: We will refill the patient's gabapentin 800 mg 1 tablet p.o. 4 times daily and [place] 7.5 mg 1 tablet p.o. 5 times daily. We will give the patient a month medication and see her back in the clinic in 1 month for reevaluation of symptoms Marine #[id number] Has been reviewed and is appropriate. Risks and benefits of the medication have been explained in detail to the pat ient. The patient has been advised to consult with his/her primary care provider and pharmacist regarding drug-drug interaction of medications currently prescribed. Patient has been prescribed a controlled substance after being counseled on the medication, medication safety, and possible side effects. MARINE report has been obtained and reviewed prior to prescription and found to be appropriate. Opioid contract was reviewed and signed by the patient, and that they have agreed to all of the terms set forth by our compliance program. Patient has been instructed to contact the clinic with any concerns before the next appointment. Dr. Watson has reviewed this note and agrees with this plan of care. This note was dictated using voice recognition software and make contain errors or omissions. [facility] History I have reviewed the patient's past medical history: Yes Medical History: Reports:: Chronic Obstructive Pulmonary Disease (COPD), Gastroesophageal Reflux Disease(GERD) *Have you ever received a pneumonia vaccine?: No *Have you received a flu vaccine this season?: No Other Medical History: Reports: Thyroid Disease Other Surgeries: Yes: No Previous Surgery, Tubal Ligation Amputation: No Fractures: No - *Social History Smoking Status: Current every day smoker Tobacco Type: cigarettes # Packs/Day (cigarettes): 2 Alcohol Intake: never Substance Use Type: denies use *Occupational Status:: unemployed *Travel in the last 8 weeks: None Family Hx:: Thyroid Disorder, Asthma
== END ==
PROVIDERS: Visit Provider Clinical Nurse Specialist Family Health
DX: M51.16 Intervertebral disc disorders with radiculopathy, lumbar region (principal)
CPT/HCPCS: 99212; G0463

== ENCOUNTER → 2020-10-28 09:37 | Outpatient (POV) | payer MEDICAID, SELFPAY ==
[2020-10-28 09:44] VITALS: BP 149/65; PULSE 71; RESP 18; O2SAT 92; BMI 24.8
--- NOTE | 2020-10-28 12:35 | HMH.PAINSOAP ---
[facility] Pain Management SOAP Note Subjective:: Patient is a pleasant 60-year-old who presents for medication refills. She has been treated for degenerative disc disease lumbar spine with lumbar radiculopathy symptoms. The patient is currently managed with [place] and gabapentin. She says that she is having pain in her low back with radiation into her lower extremities. She is also having extensive hip pain. She takes [place] 7.5 mg 1 tablet p.o. 5 times daily and gabapentin 800 mg 1 tablet p.o. 4 times daily. She denies any side effects. [facility] #[id number] has been reviewed and is appropriate. Drug screen is appropriate. We did discuss a low-dose of diclofenac 2 times a day for short period of time to see if this helps with her low back and bilateral hip pain. She rates her pain a 4 out of 10 today. She has deferred on injective therapy at this time. Review of Systems General: No recent weight changes, no fever, no sleep disturbances Respiratory: No cough, no shortness of air, no recurring pulmonary infections Cardiovascular/peripheral vascular: No chest pain, no palpitations, no edema, no shortness of breath Gastrointestinal: No new onset incontinence, normal bowel movements reported Genitourinary: No new onset incontinence Musculoskeletal: Low back pain, bilateral hip pain Psychiatric: [Normal mood/affect] Neurological: [Denies weakness in extremities], [denies balance issues] Objective:: Physical exam General: Alert and oriented x3, no acute distress, pleasant and cooperative, [on room air] Lungs: Respirations even and unlabored, symmetrical chest expansion Eyes: PERRL Musculoskeletal: Flexion and extension of lumbar [spine] somewhat guarded secondary to pain, strength in upper and lower extremities [5/5], [antalgic gait noted] Neurological: Speech clear, [head concierge equal], no gross sensory deficit Assessment:: Degenerative disc disease lumbar spine with lumbar radiculopathy symptoms, bilateral hip pain Plan:: We will give the patient a month of diclofenac 75 mg 1 tablet p.o. twice daily. We will continue her on gabapentin 800 mg 1 tablet p.o. 4 times daily and [place] 7.5 mg 1 tablet p.o. 5 times daily. We will give the patient a month medication and see her back in clinic in 1 month for reevaluation of symptoms. Risks and benefits of the medication have been explained in detail to the patient. The patient has been advised to consult with his/her primary care provider and pharmacist regarding drug-drug interaction of medications currently prescribed. Patient has been prescribed a controlled substance after being counseled on the medication, medication safety, and possible side effects. MARINE report has been obtained and reviewed prior to prescription and found to be appropriate. Opioid contract was reviewed and signed by the patient, and that they have agreed to all of the terms set forth by our compliance program. Patient has been instructed to contact the clinic with any concerns before the next appointment. Dr. Watson has reviewed this note and agrees with this plan of care. This note was dictated using voice recognition software and make contain errors or omissions. [facility] History I have reviewed the patient's past medical history: Yes Medical History: Reports:: Chronic Obstructive Pulmonary Disease (COPD), Gastroesophageal Reflux Disease(GERD) *Have you ever received a pneumonia vaccine?: No *Have you received a flu vaccine this season?: No Other Medical History: Reports: Thyroid Disease Other Surgeries: Yes: No Previous Surgery, Tubal Ligation Amputation: No Fractures: No - *Social History Smoking Status: Current every day smoker Tobacco Type: cigarettes # Packs/Day (cigarettes): 2 Alcohol Intake: never Substance Use Type: denies use *Occupational Status:: unemployed *Travel in the last 8 weeks: None Family Hx:: Thyroid Disorder, Asthma
== END ==
PROVIDERS: Visit Provider Clinical Nurse Specialist Family Health
DX: M51.16 Intervertebral disc disorders with radiculopathy, lumbar region (principal); M25.551 Pain in right hip; M25.552 Pain in left hip
CPT/HCPCS: 99212; G0463

== ENCOUNTER → 2020-11-25 09:00 | Outpatient (POV) | payer MEDICAID, SELFPAY ==
[2020-11-25 09:14] VITALS: BP 121/61; PULSE 69; RESP 18; O2SAT 95; BMI 24.2
--- NOTE | 2020-11-25 09:29 | HMH.PAINSOAP ---
[facility] Pain Management SOAP Note Subjective:: Patient is a 60-year-old white female who presents today for medication refills. We do treat the patient for degenerative disc disease lumbar spine with lumbar radiculopathy symptoms. Patient says she is doing well with her medication regimen at this time. She denies any side effects to the medication. She says that her pain is a 3 out of 10. The patient's Marine #[id number] has been reviewed and is appropriate. Patient's morphine equivalent is 40. She says that she is much more functional with her medication regimen. Review of Systems General: No recent weight changes, no fever, no sleep disturbances Respiratory: No cough, no shortness of air, no recurring pulmonary infections Cardiovascular/peripheral vascular: No chest pain, no palpitations, no edema, no shortness of breath Gastrointestinal: No new onset incontinence, normal bowel movements reported Genitourinary: No new onset incontinence Musculoskeletal: Intermittent low back pain and lower extremity pain Psychiatric: [Normal mood/affect] Neurological: [Denies weakness in extremities], [denies balance issues] Objective:: Physical exam General: Alert and oriented x3, no acute distress, pleasant and cooperative Lungs: Respirations even and unlabored, symmetrical chest expansion Eyes: PERRL Musculoskeletal: Flexion and extension of lumbar [spine] somewhat guarded secondary to pain, [antalgic gait noted] Neurological: Speech clear, no gross sensory deficit Assessment:: Degenerative disc disease lumbar spine with lumbar radiculopathy symptoms Plan:: We will refill the patient's gabapentin 800 mg 1 tablet p.o. 4 times daily and Taloga 7.5 mg 1 tablet p.o. 5 times daily. We will give her a month medication and see her back in the clinic in 1 month. Risks and benefits of the medication have been explained in detail to the patient. The patient does understand the risk of dependence on the medication when given over a prolonged period. Patient has been advised of risks of oversedation with the prescribed medication. Narcan has been offered to the paitent in the event of oversedation. Patient has been advised that a family member should also be educated regarding administration of Narcan. The patient has been advised to consult with his/her primary care provider and pharmacist regarding drug-drug interaction of medications currently prescribed. Patient has been prescribed a controlled substance after being counseled on the medication, medication safety, and possible side effects. MARINE report has been obtained and reviewed prior to prescription and found to be appropriate. Opioid contract was reviewed and signed by the patient, and that they have agreed to all of the terms set forth by our compliance program. Patient has been instructed to contact the clinic with any concerns before the next appointment. Dr. Watson has reviewed this note and agrees with this plan of care. This note was dictated using voice recognition software and make contain errors or omissions. [facility] History I have reviewed the patient's past medical history: Yes Medical History: Reports:: Chronic Obstructive Pulmonary Disease (COPD), Gastroesophageal Reflux Disease(GERD) *Have you ever received a pneumonia vaccine?: No *Have you received a flu vaccine this season?: No Other Medical History: Reports: Thyroid Disease Other Surgeries: Yes: No Previous Surgery, Tubal Ligation Amputation: No Fractures: No - *Social History Smoking Status: Current every day smoker Tobacco Type: cigarettes # Packs/Day (cigarettes): 2 Alcohol Intake: never Substance Use Type: denies use *Occupational Status:: unemployed *Travel in the last 8 weeks: None Family Hx:: Thyroid Disorder, Asthma
[2020-11-25 10:45] LABS: Amphetamine/Metha Screen,Urine Negative ng/ml (<1000); Barbiturates Screen,Urine Negative ng/ml (<200)
[2020-11-25 10:46] LABS: Benzodiazepines Screen,Urine Negative ng/ml (<200)
[2020-11-25 10:47] LABS: Cannabinoid Screen,Urine Negative ng/ml (<50); Cocaine Screen,Urine Negative ng/ml (<300)
[2020-11-25 10:48] LABS: Methadone Screen,Urine Negative ng/ml (<300)
[2020-11-25 10:49] LABS: Opiate Screen,Urine Positive ng/ml (<300); Phencyclidine Screen,Urine Negative ng/ml (<25)
== END ==
PROVIDERS: Visit Provider Clinical Nurse Specialist Family Health
DX: M51.16 Intervertebral disc disorders with radiculopathy, lumbar region (principal)
CPT/HCPCS: 80305; 99212; G0463

== ENCOUNTER → 2020-12-23 08:44 | Outpatient (POV) | payer MEDICAID, SELFPAY ==
[2020-12-23 08:49] VITALS: BP 133/79; PULSE 77; RESP 18; O2SAT 97; BMI 24.2
--- NOTE | 2020-12-23 08:56 | HMH.PAINSOAP ---
[facility] Pain Management SOAP Note Subjective:: Patient is a 60-year-old white female who presents today for medication refills. Patient says she is doing very well overall with her medication regimen. We do manage her with oral medications of gabapentin 800 mg 1 tablet p.o. 4 times daily and Sadorus 7.5 mg 1 tablet p.o. 5 times daily. She says that this gives her up to 70% relief of her low back pain and leg pain. The pain is made worse when she is standing and walking and improves with sitting. She rates her pain a 3 out of 10 today. Patient's Marine #[id number] has been reviewed and is appropriate. Patient's drug screens have been appropriate. She is not scheduled for a drug screen today. She denies any side effects to the medication. She also reports that diclofenac gives her significant relief of her low back pain. She does continue with home stretching. Review of Systems General: No recent weight changes, no fever, no sleep disturbances Respiratory: No cough, no shortness of air, no recurring pulmonary infections Cardiovascular/peripheral vascular: No chest pain, no palpitations, no edema, no shortness of breath Gastrointestinal: No new onset incontinence, normal bowel movements reported Genitourinary: No new onset incontinence Musculoskeletal: Chronic low back pain with radiation into bilateral lower extremities, made worse with standing Psychiatric: [Normal mood/affect] Neurological: [Denies weakness in extremities], [denies balance issues] Objective:: Physical exam General: Alert and oriented x3, no acute distress, pleasant and cooperative Lungs: Respirations even and unlabored, symmetrical chest expansion Eyes: PERRL Musculoskeletal: Flexion and extension of lumbar [spine] somewhat guarded secondary to pain, [antalgic gait noted] Neurological: Speech clear, no gross sensory deficit Assessment:: Degenerative disc disease lumbar spine with lumbar radiculopathy symptoms Plan:: Patient is a 60-year-old white female who presents today for medication refills. We will continue the patient gabapentin 800 mg 1 tablet p.o. 4 times daily and Sadorus 7.5 g 1 tablet p.o. 5 times daily. Patient's morphine equivalent is 38. We will see the patient back in 1 month for reevaluation of symptoms. Risks and benefits of the medication have been explained in detail to the patient. The patient does understand the risk of dependence on the medication when given over a prolonged period. Patient has been advised of risks of oversedation with the prescribed medication. Narcan has been offered to the paitent in the event of oversedation. Patient has been advised that a family member should also be educated regarding administration of Narcan. The patient has been advised to consult with his/her primary care provider and pharmacist regarding drug-drug interaction of medications currently prescribed. Patient has been prescribed a controlled substance after being counseled on the medication, medication safety, and possible side effects. MARINE report has been obtained and reviewed prior to prescription and found to be appropriate. Opioid contract was reviewed and signed by the patient, and that they have agreed to all of the terms set forth by our compliance program. Patient has been instructed to contact the clinic with any concerns before the next appointment. Dr. Watson has reviewed this note and agrees with this plan of care. This note was dictated using voice recognition software and make contain errors or omissions. [facility] History I have reviewed the patient's past medical history: Yes Medical History: Reports:: Chronic Obstructive Pulmonary Disease (COPD), Gastroesophageal Reflux Disease(GERD) *Have you ever received a pneumonia vaccine?: No *Have you received a flu vaccine this season?: No Other Medical History: Reports: Thyroid Disease Other Surgeries: Yes: No Previous Surgery, Tubal Ligation Amputation: No Fractures: No - *Social H
== END ==
PROVIDERS: Visit Provider Clinical Nurse Specialist Family Health
DX: M51.16 Intervertebral disc disorders with radiculopathy, lumbar region (principal)
CPT/HCPCS: 99212; G0463

== ENCOUNTER → 2021-01-24 08:41 | Outpatient (POV) | payer MEDICAID, SELFPAY ==
[2021-01-24 09:07] VITALS: BP 123/65; PULSE 86; RESP 18; O2SAT 96; BMI 29.0
--- NOTE | 2021-01-24 09:09 | HMH.PAINSOAP ---
[facility] Pain Management SOAP Note Subjective:: Patient is a 60-year-old white female who presents today for medication refills. The patient does report that she did fall yesterday. She does have soreness to her low back area. Patient does have chronic pain in her low back as well as bilateral lower extremities. She does say that the pain subsides when sitting. She does not feel she needs imaging due to fall and does not feel that she needs any type of steroids or injective therapy at this time. She does rate her pain a 3 out of 10 which is baseline for her. She gets up to 70% relief with her medication management. We do manage the patient with Henderson 7.5 mg 1 tablet p.o. 5 times daily and gabapentin 800 g 1 tablet p.o. 4 times daily. She does continue with home stretching and anti-inflammatories as needed. Review of Systems General: No recent weight changes, no fever, no sleep disturbances Respiratory: No cough, no shortness of air, no recurring pulmonary infections Cardiovascular/peripheral vascular: No chest pain, no palpitations, no edema, no shortness of breath Gastrointestinal: No new onset incontinence, normal bowel movements reported Genitourinary: No new onset incontinence Musculoskeletal: Low back pain made worse with standing and walking, improves with sitting Psychiatric: [Normal mood/affect] Neurological: [Denies weakness in extremities], [denies balance issues] Objective:: Physical exam General: Alert and oriented x3, no acute distress, pleasant and cooperative Lungs: Respirations even and unlabored, symmetrical chest expansion Eyes: PERRL Musculoskeletal: Flexion and extension of lumbar [spine] somewhat guarded secondary to pain, [antalgic gait noted] Neurological: Speech clear, no gross sensory deficit Assessment:: Degenerative disc disease lumbar spine with lumbar radiculopathy symptoms Plan:: We will continue the patient with gabapentin 800 mg 1 tablet p.o. 4 times daily and Henderson 7.5 mg 1 tablet p.o. 5 times daily. We will give the patient a month medication. We will see her back in clinic for 1 month evaluation and medication refill. Drug screens have been appropriate. Morphine equivalent is 38. [facility] #[id number] has been reviewed and is appropriate. Morphine equivalent is 38. Risks and benefits of the medication have been explained in detail to the patient. The patient does understand the risk of dependence on the medication when given over a prolonged period. Patient has been advised of risks of oversedation with the prescribed medication. Narcan has been offered to the paitent in the event of oversedation. Patient has been advised that a family member should also be educated regarding administration of Narcan. The patient has been advised to consult with his/her primary care provider and pharmacist regarding drug-drug interaction of medications currently prescribed. Patient has been prescribed a controlled substance after being counseled on the medication, medication safety, and possible side effects. MARINE report has been obtained and reviewed prior to prescription and found to be appropriate. Opioid contract was reviewed and signed by the patient, and that they have agreed to all of the terms set forth by our compliance program. Patient has been instructed to contact the clinic with any concerns before the next appointment. Dr. Watson has reviewed this note and agrees with this plan of care. This note was dictated using voice recognition software and make contain errors or omissions. [facility] History I have reviewed the patient's past medical history: Yes Medical History: Reports:: Chronic Obstructive Pulmonary Disease (COPD), Gastroesophageal Reflux Disease(GERD) *Have you ever received a pneumonia vaccine?: No *Have you received a flu vaccine this season?: No Other Medical History: Reports: Thyroid Disease Other Surgeries: Yes: No Previous Surgery, Tubal Ligation Amputation: No
== END ==
PROVIDERS: Visit Provider Clinical Nurse Specialist Family Health
DX: M51.16 Intervertebral disc disorders with radiculopathy, lumbar region (principal)
CPT/HCPCS: 99212; G0463

== ENCOUNTER → 2021-02-24 08:41 | Outpatient (POV) | payer MEDICAID, SELFPAY ==
[2021-02-24 08:59] VITALS: BP 135/69; PULSE 77; RESP 18; O2SAT 96; BMI 25.0
--- NOTE | 2021-02-24 09:24 | HMH.PAINSOAP ---
[facility] Pain Management SOAP Note Subjective:: Patient is a 61-year-old white female who presents today for medication refills. She is treated for chronic low back pain and lower extremity pain. She rates her pain at 3 out of 10. We managed the patient with Edgewood 7.5 mg 1 tablet p.o. 5 times daily and gabapentin 800 mg 1 tablet p.o. 4 times daily. She has requested to change her Edgewood to 10 mg. Patient has been advised that we will not be able to increase her dose. She is currently at a 3 out of 10 with her pain level. Previously she has admitted to have gotten up to 70% relief with her medication regimen. Patient has been advised to continue with home stretching and anti-inflammatories as needed. Review of Systems General: No recent weight changes, no fever, no sleep disturbances Respiratory: No cough, no shortness of air, no recurring pulmonary infections Cardiovascular/peripheral vascular: No chest pain, no palpitations, no edema, no shortness of breath Gastrointestinal: No new onset incontinence, normal bowel movements reported Genitourinary: No new onset incontinence Musculoskeletal: Low back pain with radiation into bilateral lower extremities Psychiatric: [Normal mood/affect] Neurological: [Denies weakness in extremities], [denies balance issues] Objective:: Physical exam General: Alert and oriented x3, no acute distress, pleasant and cooperative Lungs: Respirations even and unlabored, symmetrical chest expansion Eyes: PERRL Musculoskeletal: Flexion and extension of lumbar [spine] somewhat guarded secondary to pain, [antalgic gait noted] Neurological: Speech clear, no gross sensory deficit Assessment:: Degenerative disc disease lumbar spine with lumbar radiculopathy symptoms Plan:: We will continue patient on Edgewood 7.5 mg 1 tablet p.o. Daily and gabapentin 800 mg 1 tablet p.o. 4 times daily. [facility] #[id number] has been reviewed and is appropriate. Morphine equivalents 50. She will get a month medication and will be seen back in the clinic in 1 month. Risks and benefits of the medication have been explained in detail to the patient. The patient does understand the risk of dependence on the medication when given over a prolonged period. Patient has been advised of risks of oversedation with the prescribed medication. Narcan has been offered to the paitent in the event of oversedation. Patient has been advised that a family member should also be educated regarding administration of Narcan. The patient has been advised to consult with his/her primary care provider and pharmacist regarding drug-drug interaction of medications currently prescribed. Patient has been prescribed a controlled substance after being counseled on the medication, medication safety, and possible side effects. MARINE report has been obtained and reviewed prior to prescription and found to be appropriate. Opioid contract was reviewed and signed by the patient, and that they have agreed to all of the terms set forth by our compliance program. Patient has been instructed to contact the clinic with any concerns before the next appointment. Dr. Watson has reviewed this note and agrees with this plan of care. This note was dictated using voice recognition software and make contain errors or omissions. [facility] History I have reviewed the patient's past medical history: Yes Medical History: Reports:: Chronic Obstructive Pulmonary Disease (COPD), Gastroesophageal Reflux Disease(GERD) *Have you ever received a pneumonia vaccine?: No *Have you received a flu vaccine this season?: No Other Medical History: Reports: Thyroid Disease Other Surgeries: Yes: No Previous Surgery, Tubal Ligation Amputation: No Fractures: No - *Social History Smoking Status: Current every day smoker Tobacco Type: cigarettes # Packs/Day (cigarettes): 2 Alcohol Intake: never Substance Use Type: denies use *Occupational Status:: unemployed *Travel in the last 8 week
[2021-02-24 09:49] LABS: Amphetamine/Metha Screen,Urine Negative ng/ml (<1000); Barbiturates Screen,Urine Negative ng/ml (<200)
[2021-02-24 09:50] LABS: Benzodiazepines Screen,Urine Negative ng/ml (<200)
[2021-02-24 09:51] LABS: Cannabinoid Screen,Urine Negative ng/ml (<50); Cocaine Screen,Urine Negative ng/ml (<300)
[2021-02-24 09:52] LABS: Methadone Screen,Urine Negative ng/ml (<300)
[2021-02-24 09:53] LABS: Opiate Screen,Urine Positive ng/ml (<300); Phencyclidine Screen,Urine Negative ng/ml (<25)
[2021-03-14 16:20] LABS: Codeine Negative (Cutoff=100); Hydrocodone Positive (.); Hydromorphone Positive (.); Morphine Negative (Cutoff=100); Opiates Positive (.)
== END ==
PROVIDERS: PCP Emergency Medicine; Visit Provider Clinical Nurse Specialist Family Health
DX: M51.16 Intervertebral disc disorders with radiculopathy, lumbar region (principal); Z79.891 Long term (current) use of opiate analgesic
CPT/HCPCS: 80305; 80361; 80365; 99212; G0463; G0480

== ENCOUNTER 2021-03-08 15:51 | Emergency (ER) | payer MEDICAID, SELFPAY ==
[2021-03-08 16:04] VITALS: BP 102/63; PULSE 74; RESP 18; TEMP 36.8; O2SAT 91; BMI 24.0
[2021-03-08 16:40] VITALS: BP 102/63; PULSE 74; RESP 18; TEMP 36.8; O2SAT 92; BMI 23.8
[2021-03-08 16:53] LABS: Adenovirus,PCR Not Detected (NotDetected); Bordetella Pertussis Not Detected (NotDetected); Chlamydophila Pneumoniae, PCR Not Detected (NotDetected); Coronavirus 229E Not Detected (NotDetected); Coronavirus NL63 Not Detected (NotDetected); Coronavirus OC43 Not Detected (NotDetected); Coronovirus HKU1,PCR Not Detected (NotDetected); Human Metapneumovirus Not Detected (NotDetected); Influenza A, PCR Not Detected (NotDetected); Influenza AH1, 2009 Not Detected (NotDetected); Influenza AH1, PCR Not Detected (NotDetected); Influenza AH3,PCR Not Detected (NotDetected); Influenza B, PCR Not Detected (NotDetected); Mycoplasma Pneumoniae, PCR Not Detected (NotDetected); Parainfluenza 1, PCR Not Detected (NotDetected); Parainfluenza 2, PCR Not Detected (NotDetected); Parainfluenza 3, PCR Not Detected (NotDetected); Parainfluenza 4, PCR Not Detected (NotDetected); Respiratory Syncytial Virus Not Detected (NotDetected); Rhinovirus/Enterovirus Not Detected (NotDetected)
--- NOTE | 2021-03-08 17:17 | HMH.EDUTC ---
[facility] [place] Impression: COPD exacerbation, Viral syndrome, Exposure to COVID-19 virus Sinusitis Qualifiers: Sinusitis location: unspecified location Chronicity: acute Recurrence: non-recurrent Qualified Code(s): J01.90 - Acute sinusitis, unspecified Disposition: Home, Self-Care Condition on Discharge: Good Instructions: Sinusitis, DI for Sinusitis, DI for COVID-19 (Suspected or Confirmed ), Preventing the Spread of Coronavirus Discharge Instructions Additional Instructions: Drink plenty of fluids. Take tylenol or ibuprofen for pain or fever. Take the medications as directed. Follow up with your regular doctor. GO TO THE ER FOR ANY WORSENING SYMPTOMS Quarantine until you know the results of your covid-19 test. Notify your school or workplace of your results and follow their instructions regarding return to work/school. Prescriptions: Promethazine/Dextromethorphan [Promethazine-Dm Syrup] 5 ml PO Q6HP PRN #240 ml PRN Reason: Cough Transmission Status: Pending to [facility] methylPREDNISolone [Medrol] 4 mg PO DIRECTED 6 Days #21 packet Transmission Status: Pending to [facility] Azithromycin [Z-Amish 250mg Tab*] 250 mg PO UD DOSE PK #6 tab Transmission Status: Pending to [facility] Referrals: Earl Maki MD [Primary Care Provider] - Time of Disposition: 17:42 Medical Decision Making - Medical Records Medical records reviewed: No: I reviewed the patient's medical records. - Sky Inquiry Pt receiving controlled substance: No Vital Signs: 03/08/21 16:04 03/08/21 16:40 Temperature 98.2 F 98.2 F Temperature Source Oral Oral Pulse Rate [Left Radial] 74 74 Respiratory Rate 18 18 Blood Pressure [Right Arm] 102/63 L 102/63 L Blood Pressure Mean [Right Arm] 76 76 Blood Pressure Source [Right Arm] Automatic Cuff Automatic Cuff Blood Pressure Position [Right Arm] Sitting Sitting 02 Sat by Pulse Oximetry 91 L 92 L Oxygen Delivery Method Room Air Room Air - Lab Data Lab results reviewed: Yes: I reviewed the patient's lab results. Orders (Tests/Meds): ORDERS Category Date Time Status Chest XR 2 view (NOT portable) [XR chest 2V] Stat Exams 03/08/21 17:21 Ordered Full Resp Panel w/COVID ([facility]) Routine Lab 03/08/21 16:48 [place] [facility] [place] - General Stated complaint: WEAKNESS,bODY ACKES,BACK PAIN Time Seen by Provider: 03/08/21 17:17 Mode of Arrival: Ambulatory Source of Information: Patient Limitations: No Limitations Description of Symptoms (Recalled from Triage Doc. by RN): PATIENT C/O BODY ACHES, FEVER, BACK PAIN, AND CONGESTION HEENT Symptoms (Recalled from RN notes): No Resp Symptoms (Recalled from RN notes): No Skin Symptoms (Recalled from RN notes): No MS Symptoms (Recalled from RN notes): No Functional Status (Recalled from RN notes): WNL - History of Present Illness Provider Complaint: She states that for the past 2 days she has had sinus congestion, chest congestion, a nonproductive cough, scratchy throat, chills and low grade fever. She has a history of chronic bronchitis. She has not been vaccinated against covid-19. - Related Data Home Medications Medication Instructions Recorded Confirmed Gabapentin [Neurontin 800mg Tab] 800 mg PO QID 03/08/21 03/08/21 Hydrocodone/Acetaminophen 1 tab PO QID 03/08/21 03/08/21 [Hydrocodone-Acetamin 7.5-325] Levothyroxine Sodium 88 mcg PO DAILY 03/08/21 03/08/21 [Levothyroxine 88mcg (0.088mg) Tab] Tizanidine HCl 4 mg PO BID 03/08/21 03/08/21 Previous Rx's Medication Instructions Recorded Azithromycin [Z-Amish 250mg Tab*] 250 mg PO UD DOSE PK #6 tab 03/08/21 Promethazine/Dextromethorphan 5 ml PO Q6HP PRN #240 ml 03/08/21 [Promethazine-Dm Syrup] methylPREDNISolone [Medrol] 4 mg PO DIRECTED 6 Days #21 03/08/21 packet Allergies Allergy/AdvReac Type Severity Reaction Status Date / Time Penicillins Allergy Intermediate I-HIVES Verified 10/13/19 10:58
--- NOTE | 2021-03-08 17:21 | XR_ITS ---
PROCEDURE INFORMATION: Exam: XR Chest Exam date and time: 03/08/2021 5:21 PM Age: 61 years old Clinical indication: Cough with hemorrhage; Patient HX: Copd; Additional info: Cough, congestion TECHNIQUE: Imaging protocol: XR of the chest. Views: 2 views. Total images: 3 COMPARISON: WO CT CHEST W/O CONTRAST 08/24/2015 2:17 PM FINDINGS: Lungs: Moderate hyperexpansion and hyperlucency with diaphragmatic flattening suggesting COPD. Pulmonary vasculature grossly normal. Suspect ongoing bronchial wall thickening suggestive of chronic bronchitis/bronchiolitis. Chronic bandlike opacity in the anterior right apex most suggestive of chronic scarring and atelectasis at this point. No gross active infiltrates are appreciated currently. Granulomatous calcification in the anterior right middle lobe. Pleural spaces: Mild bilateral apical pleural/parenchymal scarring. No pleural effusion. No pneumothorax. Heart/Mediastinum: Heart size normal. No tracheal/mediastinal shift. Vasculature: The aorta demonstrates mild ectasia/tortuosity and mild calcific atherosclerosis. Bones/joints: No acute osseous abnormalities are identified. IMPRESSION: 1. Moderate COPD/emphysematous changes. 2. Question continued bronchial wall thickening similar to prior imaging exams in 2016 suggesting chronic bronchitis/bronchiolitis. 3. Evidence of remote prior granulomatous disease. 4. Chronic bandlike alveolar density in the right apex favors chronic scarring and atelectasis at this point with no definite active infiltrates appreciated currently.
[2021-03-08 17:50] VITALS: BP 102/63; PULSE 74; RESP 18; TEMP 36.8; O2SAT 92
[2021-03-08 19:08] LABS: Coronavirus 19, PCR Detected (NotDetected)
== END 2021-03-08 18:02 | disposition home or self-care (01) ==
LOC: ER 16:05 → UTC 16:05
PROVIDERS: Emergency Provider Nurse Practitioner Family; PCP Emergency Medicine
DX: J44.1 Chronic obstructive pulmonary disease with (acute) exacerbation (principal); U07.1 COVID-19; J01.90 Acute sinusitis, unspecified; F17.210 Nicotine dependence, cigarettes, uncomplicated; K21.9 Gastro-esophageal reflux disease without esophagitis; Z88.0 Allergy status to penicillin
CPT/HCPCS: 71046; 87581; 87632; 87798; 99202; C9803; G0463; U0003; U0005

== ENCOUNTER → 2021-03-24 09:04 | Outpatient (POV) | payer MEDICAID, SELFPAY ==
--- NOTE | 2021-03-24 09:25 | HMH.VVPMSO ---
[facility] PM Virtual Visit SOAP Consent for virtual visit:: With the recent concerns about the COVID-19, we are trying to minimize exposure to you by shifting to telehealth appointments whenever possible. It restricts me from seeing you in person, but the trade off is protecting you during this pandemic. Can you see and hear me okay, and do you consent to this option? If not, I would be happy to see if we can reschedule your appointment in the future, when feasible. Has patient consented to this virtual visit?: Yes Subjective:: Patient is a 61-year-old white female who presents today via telehealth medicine due to diagnosis of Covid. She is following up via telephone. She does get medication refills through our clinic. We provide Ione 7.5 mg 1 tablet p.o. five times daily and gabapentin 800 mg 1 tablet p.o. 4 times daily. At last visit the patient did request an increase to Ione 10, but we did not increase. She was at a 3 out of 10 per her pain level. She says the medicines are working well for her. She is still fatigued and tired from Covid. Otherwise, medicines are working well for her. [facility] #[id number] has been reviewed and is appropriate. Drug screen is appropriate. Review of Systems General: No recent weight changes, no fever, no sleep disturbances Respiratory: No cough, no shortness of air, no recurring pulmonary infections Cardiovascular/peripheral vascular: No chest pain, no palpitations, no edema, no shortness of breath Gastrointestinal: No new onset incontinence, normal bowel movements reported Genitourinary: No new onset incontinence Musculoskeletal: Chronic low back pain Psychiatric: [Normal mood/affect] Neurological: [Denies weakness in extremities], [denies balance issues] Objective:: Physical exam General: Alert and oriented x3, no acute distress, pleasant and cooperative Assessment:: Degenerative disc disease lumbar spine with lumbar radiculopathy symptoms Plan:: We will continue patient's Ione 7.5 mg 1 tablet p.m. five times daily. We will continue gabapentin 800 mg 1 tablet p.o. 4 times daily. She will get a month medication will be seen back in the clinic in 1 month. The patient's morphine equivalent is 50. We will order Narcan to have in the event of oversedation. Risks and benefits of the medication have been explained in detail to the patient. The patient does understand the risk of dependence on the medication when given over a prolonged period. Patient has been advised of risks of oversedation with the prescribed medication. Narcan has been offered to the paitent in the event of oversedation. Patient has been advised that a family member should also be educated regarding administration of Narcan. The patient has been advised to consult with his/her primary care provider and pharmacist regarding drug-drug interaction of medications currently prescribed. Patient has been prescribed a controlled substance after being counseled on the medication, medication safety, and possible side effects. MARINE report has been obtained and reviewed prior to prescription and found to be appropriate. Opioid contract was reviewed and signed by the patient, and that they have agreed to all of the terms set forth by our compliance program. Patient has been instructed to contact the clinic with any concerns before the next appointment. Dr. Watson has reviewed this note and agrees with this plan of care. This note was dictated using voice recognition software and make contain errors or omissions. Time In:: 09:15 Time Out:: 09:30 [facility] History I have reviewed the patient's past medical history: Yes Medical History: Reports:: Chronic Obstructive Pulmonary Disease (COPD), Gastroesophageal Reflux Disease(GERD) *Have you ever received a pneumonia vaccine?: No *Have you received a flu vaccine this season?: No Other Medical History: Reports: Thyroid Disease Other Surgeries: Yes: No Previous Surgery, Tubal L
== END ==
PROVIDERS: Visit Provider Clinical Nurse Specialist Family Health
DX: M51.16 Intervertebral disc disorders with radiculopathy, lumbar region (principal)
CPT/HCPCS: 99212; G0463

== ENCOUNTER → 2021-04-28 09:33 | Outpatient (POV) | payer MEDICAID, SELFPAY ==
[2021-04-28 10:01] VITALS: BP 95/49; PULSE 70; RESP 18; TEMP 36.6; O2SAT 94; BMI 24.2
--- NOTE | 2021-04-28 11:00 | HMH.PAINSOAP ---
[facility] Pain Management SOAP Note Subjective:: Patient is a pleasant 61-year-old female who is here for medication refill and follow-up. Patient is currently being treated for degenerative disc disease of the lumbar spine with lumbar radiculopathy symptoms. Patient is being managed with gabapentin 800 mg 4 times a day and [place] 7.5 mg 5 times a day. Patient denies any side effects from the medications. Patient denies any changes to the location and type of pain. Patient states that this is adequately helping manage his pain. Rates pain as 6 out of 10. [facility] number [id number] with an active morphine equivalent 38. Drug screens have been reviewed and appropriate General: No recent weight changes, no fever, no sleep disturbances Respiratory: No cough, no shortness of air, no recurring pulmonary infections Cardiovascular/peripheral vascular: No chest pain, no palpitations, no edema, no shortness of breath Gastrointestinal: No new onset incontinence, normal bowel movements reported Genitourinary: No new onset incontinence Musculoskeletal: Low back pain Psychiatric: [Normal mood/affect] Neurological: [Denies weakness in extremities], [denies balance issues] Objective:: General: Alert and oriented x3, no acute distress, pleasant and cooperative, [on room air] Lungs: Respirations even and unlabored, symmetrical chest expansion Eyes: PERRL Musculoskeletal: Flexion and extension of lumbar [spine] somewhat guarded secondary to pain, [antalgic gait noted] Neurological: Speech clear, no gross sensory deficit Assessment:: Degenerative disc disease of the lumbar spine with lumbar radiculopathy symptoms Plan:: We will continue the patient's gabapentin 800 mg 4 times a day and [place] 7.5 mg 5 times a day. We will provide the patient with 1 month of refills. We would like to see the patient back in 1 month for follow-up and reevaluation of chronic pain syndrome. Patient has been advised of risks of oversedation with the prescribed medication. Narcan has been offered to the paitent in the event of oversedation. Patient has been advised that a family member should also be educated regarding administration of Narcan. Patient has been instructed to contact the clinic with any concerns before the next appointment. Dr. Watson has reviewed this note and agrees with this plan of care. This note was dictated using voice recognition software and make contain errors or omissions. [facility] History Medical History: Reports:: Chronic Obstructive Pulmonary Disease (COPD), Gastroesophageal Reflux Disease(GERD) *Have you ever received a pneumonia vaccine?: No *Have you received a flu vaccine this season?: No Other Medical History: Reports: Thyroid Disease Other Surgeries: Yes: No Previous Surgery, Tubal Ligation Amputation: No Fractures: No - *Social History Smoking Status: Current every day smoker Tobacco Type: cigarettes # Packs/Day (cigarettes): 2 Alcohol Intake: never Substance Use Type: denies use *Occupational Status:: other *Travel in the last 8 weeks: None Family Hx:: Thyroid Disorder, Asthma
== END ==
PROVIDERS: Visit Provider Student in an Organized Health Care Education/Training Program
DX: M51.16 Intervertebral disc disorders with radiculopathy, lumbar region (principal)
CPT/HCPCS: 99212; G0463

== ENCOUNTER → 2021-05-02 14:09 | Outpatient (CLI) | payer MEDICAID, SELFPAY ==
[2021-05-02 14:54] LABS: Basophils # 0.1 K/mm3 (0-0.2); Basophils % 1.3 % (0.1-2.0); Eosinophils # 0.1 K/mm3 (0.0-0.4); Eosinophils % 0.9 % (0.1-12.0); Hematocrit 52.9 % (37.0-47.0); Hemoglobin 16.6 g/dL (12.2-16.2); Lymphocytes # 3.4 K/mm3 (0.7-4.5); Lymphocytes % 40.1 % (10-50); Mean Corpuscular HGB Conc 31.3 g/dL (31.8-35.4); Mean Corpuscular Hemoglobin 31.8 pg (27.0-31.2); Mean Corpuscular Volume 101.5 fl (81-99); Mean Platelet Volume 9.7 fl (7.4-10.4); Monocytes # 0.4 K/mm3 (0.1-1.0); Monocytes % 4.7 % (1.7-9.3); Neutrophils # 4.5 K/mm3 (1.8-7.8); Platelet Count 322 K/mm3 (142-424); Red Blood Count 5.21 M/mm3 (4.20-5.40); Red Cell Distribution Width 13.4 % (11.5-17.5); White Blood Count 8.5 K/mm3 (4.8-10.8)
[2021-05-02 16:26] LABS: Alanine Aminotransferase 15 U/L (12-78); Albumin Level 4.4 g/dl (3.5-5.0); Albumin/Globulin Ratio 1.5 (1.1-1.8); Alkaline Phosphatase 148 U/L (38-126); Aspartate Amino Transferase 28 U/L (14-36); Bilirubin,Total 0.5 mg/dl (0.2-1.3); Blood Urea Nitrogen 14 mg/dl (7-17); Calcium 9.5 mg/dl (8.4-10.2); Carbon Dioxide 32 mmol/L (22.0-30.0); Chloride 101 mmol/L (98-107); Chol/HDL Ratio 3.5 (1-3.5); Cholesterol 239 mg/dl (140-200); Estimated Glomerular Filt Rate 102 ml/min (>60); GFR (African American) 123 ML/MIN (>60); Globulin 2.9 g/dL (1.3-3.2); Glucose 98 mg/dl (74-100); HDL Cholesterol 69 mg/dl (40-60); Sodium 139 mmol/L (136-145); Total Protein,Serum 7.3 g/dl (6.3-8.2); Triglycerides 116 mg/dl (30-150); VLDL Cholesterol 23 mg/dL (0-40)
[2021-05-02 16:37] LABS: Direct LDL Cholesterol 126.69 mg/dL (100-129)
[2021-05-02 16:43] LABS: Free T4 (Free Thyroxine) 1.87 ng/dl (0.78-2.19)
[2021-05-02 16:47] LABS: 25-OH Vitamin D, Total 18.2 ng/mL (30-100)
== END ==
PROVIDERS: Visit Provider Emergency Medicine
DX: E03.9 Hypothyroidism, unspecified (principal); J44.1 Chronic obstructive pulmonary disease with (acute) exacerbation; K21.9 Gastro-esophageal reflux disease without esophagitis; E55.9 Vitamin D deficiency, unspecified
CPT/HCPCS: 80053; 80061; 82306; 84439; 84443; 85025

== ENCOUNTER → 2021-05-25 09:12 | Outpatient (CLI) | payer MEDICAID, SELFPAY ==
--- NOTE | 2021-05-25 09:17 | XR_ITS ---
FINAL REPORT TECHNIQUE: Bone densitometry calculations of the lumbar spine and each hip were obtained. CLINICAL HISTORY: osteoporosis FINDINGS: DEXA BONE DENSITY AXIAL SKELETON Using L1-4, the bone mineral density of the spine is 0.963 g/cm2, corresponding to T-score of -0.8. Using the left hip, the bone mineral density of the femoral neck is 0.736 g/cm2, corresponding to a T-score of -1.7. Using the right hip, the bone mineral density of the femoral neck is 0.671 g/cm2, corresponding to a T-score of -1.6. NOTE: T-score: Standard deviation compared with peak bone mass of young adult mean. *Following the recommendations of the International Society of Bone densitometry, classification of hip BMD is based on the lower of two T-scores; total hip or femoral neck. IMPRESSION: Diminished bone mineral density of both hips consistent with osteopenia. FRAX 10 year fracture risk for major osteoporotic fracture is 8.3%. Reviewed, Interpreted and Dictated by Declan Newton MD Transcribed by Agnieszka Singh Authenticated by Declan Newton MD on 05/25/2021 01:36:50 PM [facility]
== END ==
PROVIDERS: PCP Emergency Medicine; Visit Provider Emergency Medicine
DX: M81.0 Age-related osteoporosis without current pathological fracture (principal)
CPT/HCPCS: 77080

== ENCOUNTER → 2021-05-30 09:09 | Outpatient (POV) | payer MEDICAID, SELFPAY ==
[2021-05-30 09:34] VITALS: BP 139/69; PULSE 75; RESP 18; TEMP 36.3; O2SAT 93; BMI 24.5
--- NOTE | 2021-05-30 09:43 | HMH.PAINSOAP ---
[facility] Pain Management SOAP Note Subjective:: Patient is a pleasant 61-year-old female who is here for medication refill and follow-up. Patient is currently being treated for degenerative disc disease of lumbar spine with lumbar radiculopathy symptoms. Patient is being managed with gabapentin 800 mg 4 times a day and [place] 7.5 mg 5 times a day. Other than getting constipation every now and then, patient denies any other side effects from these medications. She says that she eats prune every time she has a constipation and this usually helps it. I recommended the patient take MiraLAX or stool softener. Patient denies any changes to the location and type of pain. Patient states that this is adequately helping manage their pain. Patient also wants to know if we can refill her topical diclofenac. Rates pain as 3 out of 10. [facility] number [id number] with an active morphine equivalent 38. Drug screens have been reviewed and appropriate. Review of Systems: General: No recent weight changes, no fever, no sleep disturbances Respiratory: No cough, no shortness of air, no recurring pulmonary infections Cardiovascular/peripheral vascular: No chest pain, no palpitations, no edema, no shortness of breath Gastrointestinal: No new onset incontinence, normal bowel movements reported Genitourinary: No new onset incontinence Musculoskeletal: Low back pain Psychiatric: [Normal mood/affect] Neurological: [Denies weakness in extremities], [denies balance issues] Objective:: Physical Exam: General: Alert and oriented x3, no acute distress, pleasant and cooperative, [on room air] Lungs: Respirations even and unlabored, symmetrical chest expansion Eyes: PERRL Musculoskeletal: Flexion and extension of lumbar [spine] somewhat guarded secondary to pain, [antalgic gait noted] Neurological: Speech clear, no gross sensory deficit Assessment:: Degenerative disc disease of lumbar spine with lumbar radiculopathy symptoms Plan:: We will continue the patient's gabapentin 800 mg 4 times a day and [place]ahan 7.5 mg 5 times a day. We will provide the patient with 1 month of refills. We would like to see the patient back in 1 month for follow-up and reevaluation of chronic pain syndrome. I will also continue the patient's diclofenac cream. Patient has been advised of risks of oversedation with the prescribed medication. Narcan has been offered to the patient in the event of oversedation. Patient has been advised that a family member should also be educated regarding administration of Narcan. Patient has been instructed to contact the clinic with any concerns before the next appointment. Dr. Watson has reviewed this note and agrees with this plan of care. This note was dictated using voice recognition software and make contain errors or omissions. [facility] History Medical History: Reports:: Chronic Obstructive Pulmonary Disease (COPD), Gastroesophageal Reflux Disease(GERD) *Have you ever received a pneumonia vaccine?: No *Have you received a flu vaccine this season?: No Other Medical History: Reports: Thyroid Disease Other Surgeries: Yes: No Previous Surgery, Tubal Ligation Amputation: No Fractures: No - *Social History Smoking Status: Current every day smoker Tobacco Type: cigarettes # Packs/Day (cigarettes): 2 Alcohol Intake: never Substance Use Type: denies use *Occupational Status:: unemployed *Travel in the last 8 weeks: None Family Hx:: Thyroid Disorder, Asthma
== END ==
PROVIDERS: Visit Provider Student in an Organized Health Care Education/Training Program
DX: M51.16 Intervertebral disc disorders with radiculopathy, lumbar region (principal)
CPT/HCPCS: 99212; G0463

== ENCOUNTER → 2021-05-30 09:35 | Outpatient (CLI) | payer MEDICAID, SELFPAY ==
[2021-05-30 11:11] LABS: Amphetamine/Metha Screen,Urine Negative ng/ml (<1000); Benzodiazepines Screen,Urine Negative ng/ml (<200)
[2021-05-30 11:12] LABS: Barbiturates Screen,Urine Negative ng/ml (<200)
[2021-05-30 11:13] LABS: Cannabinoid Screen,Urine Negative ng/ml (<50); Cocaine Screen,Urine Negative ng/ml (<300)
[2021-05-30 11:14] LABS: Methadone Screen,Urine Negative ng/ml (<300)
[2021-05-30 11:15] LABS: Opiate Screen,Urine Positive ng/ml (<300); Phencyclidine Screen,Urine Negative ng/ml (<25)
[2021-06-11 20:08] LABS: Codeine Negative (Cutoff=100); Hydrocodone Positive (.); Hydromorphone Positive (.); Morphine Negative (Cutoff=100); Opiates Positive (.)
== END ==
PROVIDERS: Visit Provider Student in an Organized Health Care Education/Training Program
DX: Z79.891 Long term (current) use of opiate analgesic (principal)
CPT/HCPCS: 80305; 80361; 80365; G0480

== ENCOUNTER → 2021-06-27 08:13 | Outpatient (POV) | payer MEDICAID, SELFPAY ==
[2021-06-27 08:14] VITALS: BP 126/61; PULSE 78; RESP 18; TEMP 36.3; O2SAT 92; BMI 24.2
--- NOTE | 2021-06-27 08:40 | P.CONS_ITS ---
[facility] Pain Management SOAP Note Subjective:: Patient is a pleasant 61-year-old female who is here for medication refill and follow-up. Patient is currently being treated for degenerative disc disease of lumbar spine with lumbar radiculopathy symptoms. Patient is being managed with gabapentin 800 mg 4 times a day, Davin 7.5 mg 5 times a day, tizanidine 4 mg twice a day, and diclofenac cream. Other than getting constipation every now and then, patient denies any other side effects from these medications. She eats prunes every now for constipation. Which seems to help. Patient denies any changes to the location and type of pain. Patient states that this is adequately helping manage their pain. Rates pain as 3 out of 10. [facility] number [id number] with an active morphine equivalent 38. Drug screens have been reviewed and appropriate. Review of Systems: General: No recent weight changes, no fever, no sleep disturbances Respiratory: No cough, no shortness of air, no recurring pulmonary infections Cardiovascular/peripheral vascular: No chest pain, no palpitations, no edema, no shortness of breath Gastrointestinal: No new onset incontinence, normal bowel movements reported Genitourinary: No new onset incontinence Musculoskeletal: Low back pain Psychiatric: [Normal mood/affect] Neurological: [Denies weakness in extremities], [denies balance issues] Objective:: Physical Exam: General: Alert and oriented x3, no acute distress, pleasant and cooperative Lungs: Respirations even and unlabored, symmetrical chest expansion Eyes: PERRL Musculoskeletal: Flexion and extension of lumbar [spine] somewhat guarded secondary to pain, [antalgic gait noted] Neurological: Speech clear, no gross sensory deficit Assessment:: Degenerative disc disease of lumbar spine with lumbar radiculopathy symptoms Plan:: We will continue the patient's gabapentin 800 mg 4 times a day, Davin 7.5 mg 5 times a day, tizanidine 4 mg twice a day, and diclofenac cream. We will provide the patient with 1 month of refills. We would like to see the patient back in 1 month for follow-up and reevaluation of chronic pain syndrome. Patient has been advised of risks of oversedation with the prescribed medication. Narcan has been offered to the patient in the event of ove rsedation. Patient has been advised that a family member should also be educated regarding administration of Narcan. Patient has been instructed to contact the clinic with any concerns before the next appointment. Dr. Watson has reviewed this note and agrees with this plan of care. This note was dictated using voice recognition software and make contain errors or omissions. [facility] History Medical History: Reports:: Chronic Obstructive Pulmonary Disease (COPD), Gastroesophageal Reflux Disease(GERD) *Have you ever received a pneumonia vaccine?: No *Have you received a flu vaccine this season?: No Other Medical History: Reports: Thyroid Disease Other Surgeries: Yes: No Previous Surgery, Tubal Ligation Amputation: No Fractures: No - *Social History Smoking Status: Current every day smoker Tobacco Type: cigarettes # Packs/Day (cigarettes): 2 Alcohol Intake: never Substance Use Type: denies use *Occupational Status:: unemployed *Travel in the last 8 weeks: Inside the [place] Family Hx:: Thyroid Disorder, Asthma
== END ==
PROVIDERS: Visit Provider Student in an Organized Health Care Education/Training Program
DX: M51.16 Intervertebral disc disorders with radiculopathy, lumbar region (principal)
CPT/HCPCS: 99212; G0463

== ENCOUNTER → 2021-07-28 08:12 | Outpatient (POV) | payer MEDICAID, SELFPAY ==
[2021-07-28 09:00] VITALS: BP 124/64; PULSE 76; RESP 20; TEMP 36.5; O2SAT 91
--- NOTE | 2021-07-28 10:42 | HMH.PAINSOAP ---
[facility] Pain Management SOAP Note Subjective:: Patient is a pleasant 61-year-old female who is here for medication refill and follow-up. Patient is currently being treated for degenerative disc disease of the lumbar spine with radiculopathy symptoms. Patient is being managed with gabapentin 800 mg 4 times a day, [place] 7.5 mg 5 times a day, tizanidine 4 mg twice a day, and diclofenac cream. Patient denies any side effects from the medications. More recently, patient states that she is having this tingling burning feeling around her mid back that is tender to palpation. She cannot tolerate whenever her hair or her clothes touches her mid back. She has tried Biofreeze with minimal relief. Denies any recent falls or traumas. Denies any other precipitating factors. She has not noticed any lesions or rashes. She did say that she had shingles a few months ago on her right leg. Rates pain as 3 out of 10. [facility] number [id number] with an active morphine equivalent 38. Drug screens have been reviewed and appropriate. Review of Systems: General: No recent weight changes, no fever, no sleep disturbances Respiratory: No cough, no shortness of air, no recurring pulmonary infections Cardiovascular/peripheral vascular: No chest pain, no palpitations, no edema, no shortness of breath Gastrointestinal: No new onset incontinence, normal bowel movements reported Genitourinary: No new onset incontinence Musculoskeletal: Mid back pain, low back pain Psychiatric: [Normal mood/affect] Neurological: [Denies weakness in extremities], [denies balance issues] Objective:: Physical Exam: General: Alert and oriented x3, no acute distress, pleasant and cooperative Lungs: Respirations even and unlabored, symmetrical chest expansion Eyes: PERRL Musculoskeletal: Flexion and extension of lumbar [spine] somewhat guarded secondary to pain, [antalgic gait noted]; tender to palpation around the mid back. There is no noticeable lesions or rashes. There is no erythema or swelling. Neurological: Speech clear, no gross sensory deficit Assessment:: Degenerative disease of lumbar spine with lumbar radiculopathy symptoms, mid back pain Plan:: We will continue the patient's gabapentin 800 mg 4 times a day and [place] 7.5 mg 5 times a day. Patient is not needing refills on her tizanidine and diclofenac cream. We will provide the patient with 1 month worth of refill. For her mid back, we will order an updated thoracic MRI to further evaluate pathology. I am also starting the patient on a compounding cream to see if this would help with any of her tenderness. Patient has been instructed to contact the clinic with any concerns before the next appointment. Dr. Watson has reviewed this note and agrees with this plan of care. This note was dictated using voice recognition software and make contain errors or omissions. [facility] History Medical History: Reports:: Chronic Obstructive Pulmonary Disease (COPD), Gastroesophageal Reflux Disease(GERD) *Have you ever received a pneumonia vaccine?: No *Have you received a flu vaccine this season?: No Other Medical History: Reports: Thyroid Disease Other Surgeries: Yes: No Previous Surgery, Tubal Ligation Amputation: No Fractures: No - *Social History Smoking Status: Current every day smoker Tobacco Type: cigarettes # Packs/Day (cigarettes): 2 Alcohol Intake: never Substance Use Type: denies use *Occupational Status:: other *Travel in the last 8 weeks: None Family Hx:: Thyroid Disorder, Asthma
== END ==
PROVIDERS: Visit Provider Student in an Organized Health Care Education/Training Program
DX: M51.16 Intervertebral disc disorders with radiculopathy, lumbar region (principal); Z72.0 Tobacco use
CPT/HCPCS: 99212; G0463

== ENCOUNTER → 2021-08-08 09:07 | Outpatient (POV) | payer MEDICAID, SELFPAY ==
[2021-08-08 09:12] VITALS: BP 123/66; PULSE 72; RESP 18; TEMP 36.5; O2SAT 93; BMI 25.7
--- NOTE | 2021-08-08 11:27 | P.CONS_ITS ---
[facility] Pain Management SOAP Note Subjective:: Patient is a pleasant 61-year-old female who presents today for follow-up. We are currently treating this patient for degenerative disc disease of lumbar spine with lumbar radiculopathy symptoms, mid back pain. We are currently managing this patient with gabapentin 800 mg 4 times a day, Gill 7.5 mg 5 times a day, tizanidine 4 mg twice a day and diclofenac cream. I also started her recently on a compounding cream that is helping significantly. When I last saw this patient, she was having significant mid back pain. On exam, patient was tender to palpation around the T4-T5 levels. I had ordered an MRI of her thoracic spine to further evaluate pathology, this was denied by insurance. Denies any recent falls or traumas. Rates her pain as 8 out of 10. She is not needing any refills today. [facility] [id number] with an active morphine equivalent of 38. Review of Systems: General: No recent weight changes, no fever, no sleep disturbances Respiratory: No cough, no shortness of air, no recurring pulmonary infections Cardiovascular/peripheral vascular: No chest pain, no palpitations, no edema, no shortness of breath Gastrointestinal: No new onset incontinence, normal bowel movements reported Genitourinary: No new onset incontinence Musculoskeletal: Mid back pain, low back pain Psychiatric: [Normal mood/affect] Neurological: [Denies weakness in extremities], [denies balance issues] Objective:: Physical Exam: General: Alert and oriented x3, no acute distress, pleasant and cooperative Lungs: Respirations even and unlabored, symmetrical chest expansion Eyes: PERRL Musculoskeletal: Flexion and extension of thoracic and lumbar [spine] somewhat guarded secondary to pain, [antalgic gait noted] Neurological: Speech clear, no gross sensory deficit Assessment:: Degenerative disc disease of the lumbar spine with lumbar radiculopathy symptoms, mid back pain Plan:: Patient continues to have pain around her mid back. We did try to order a thoracic MRI to further evaluate pathology, this was denied by insurance. We will order a thoracic x-ray today. From her thoracic x-ray, she does have some mild degenerative disc changes on her thoracic spine. There are no fractures or compression noted. She is tender to palpation around the midline at T4-T5 level. We will schedule the patient for a thoracic epidural steroid injection at T4-T5. Patient is not on any blood thinners. Patient has been instructed to contact the clinic with any concerns before the next appointment. Dr. Watson has reviewed this note and agrees with this plan of care. This note was dictated using voice recognition software and make contain errors or omissions. [facility] History Medical History: Reports:: Chronic Obstructive Pulmonary Disease (COPD), Gastroesophageal Reflux Disease(GERD) *Have you ever received a pneumonia vaccine?: No *Have you received a flu vaccine this season?: No Other Medical History: Reports: Thyroid Disease Other Surgeries: Yes: No Previous Surgery, Tubal Ligation Amputation: No Fractures: No - *Social History Smoking Status: Current every day smoker Tobacco Type: cigarettes # Packs/Day (cigarettes): 2 Alcohol Intake: never Substance Use Type: denies use *Occupational Status:: other *Travel in the last 8 weeks: None Family Hx:: Thyroid Disorder, Asthma
== END ==
PROVIDERS: Visit Provider Student in an Organized Health Care Education/Training Program
DX: M51.16 Intervertebral disc disorders with radiculopathy, lumbar region (principal); M54.89 Other dorsalgia
CPT/HCPCS: 99212; G0463

== ENCOUNTER → 2021-08-08 09:41 | Outpatient (CLI) | payer MEDICAID, SELFPAY ==
--- NOTE | 2021-08-08 09:45 | XR_ITS ---
FINAL REPORT CLINICAL HISTORY: MID BACK PAIN FINDINGS: THORACIC SPINE Three views were obtained. There is no acute fracture. There is no malalignment. There is mild degenerative change with small osteophytes. There is no soft tissue abnormality. IMPRESSION: Mild degenerative change with no acute bony abnormality. Reviewed, Interpreted and Dictated by Flako Esparza III, MD Transcribed by Agnieszka Singh Authenticated and [facility]
== END ==
PROVIDERS: PCP Emergency Medicine; Visit Provider Student in an Organized Health Care Education/Training Program
DX: M54.6 Pain in thoracic spine (principal)
CPT/HCPCS: 72072

== ENCOUNTER 2021-09-02 10:05 | Day surgery (SDC) | payer MEDICAID, SELFPAY ==
[2021-09-02 10:11] VITALS: BP 107/74; PULSE 91; RESP 18; TEMP 36.4; O2SAT 95; BMI 24.7
[2021-09-02 10:22] VITALS: BP 100/71; PULSE 90; RESP 20
--- NOTE | 2021-09-02 10:33 | HMH.PMPROC ---
- Procedure Date: 09/02/21 Time: 10:33 Anesthesiologist:: Guru Durham CRNA Complications:: None Pre-procedure Diagnosis:: Degenerative disc disease thoracic spine. Degenerative disc disease lumbar spine. Lumbar radiculopathy symptoms. Mid back pain. Post-procedure Diagnosis:: Same Indications for Procedure:: This patient is a pleasant 61-year-old female that comes to our clinic today for T4-5 thoracic epidural steroid injection. She has had mid back pain over the last several months. Her MRI did show that she has degenerative disc changes throughout the thoracic spine. She rates her pain 7/10. Procedure Details:: Procedure: Thoracic epidural steroid injection under fluoroscopy Informed consent was obtained and the risks and benefits of the procedure were explained to the patient. The patient was taken to the procedure room and noninvasive monitors placed, including noninvasive blood pressure cuff and pulse oximeter. The resting spine was viewed using C-arm Fluoroscopy and prepped using Betadine as a cleansing solution and the C4-5 interspace was palpated. Skin and subcutaneous tissues were anesthetized using lidocaine 1.5% and a 25-gauge needle. After this, an 20 -gauge Touhy epidural needle was placed into the C4-5 interspace and advanced using fluoroscopic guidance and loss of resistance to air until the epidural space was encountered. After confirmation of needle placement in the epidural space, with dye, a solution containing lidocaine 1.5%, 4 mL and Depo-Medrol 80 mg were incrementally injected into the lumbar epidural space. The patient tolerated the procedure well with no complications. The patient was observed in the Pain Clinic and then discharged home neurologically intact. Plan and Disposition:: Patient was discharged without incident.
[2021-09-02 10:35] VITALS: BP 108/56; PULSE 70; RESP 20; O2SAT 98
== END 2021-09-02 10:36 | disposition home or self-care (01) ==
LOC: SC.PAINP 10:05
PROVIDERS: PCP Emergency Medicine; Visit Provider Nurse Anesthetist, Certified Registered
DX: M51.34 Other intervertebral disc degeneration, thoracic region (principal); M51.16 Intervertebral disc disorders with radiculopathy, lumbar region; Z72.0 Tobacco use
CPT/HCPCS: 62321; J1040; Q9966

== ENCOUNTER → 2021-09-19 13:00 | Outpatient (POV) | payer MEDICAID, SELFPAY ==
[2021-09-19 13:06] VITALS: BP 117/72; PULSE 75; RESP 18; BMI 24.8
--- NOTE | 2021-09-19 14:28 | HMH.PAINSOAP ---
[facility] Pain Management SOAP Note Subjective:: Patient is a pleasant 61-year-old female that presents today for follow-up from a thoracic epidural steroid injection at T4-5 on 09/02/2021. We are currently treating the patient for degenerative disc disease of the thoracic spine, degenerative disc disease of lumbar spine with lumbar radiculopathy symptoms and mid back pain. Patient states that she has 90% relief from this injection. She states she feels like she is still getting relief currently. Today she rates her pain a 3 out of 10. She states she does still have pain around her mid back and describes it as an aching sensation. Patient has used [id number] medications such as Tylenol and ibuprofen with some relief. She currently manages her pain with [place] 7.5 mg 5 times a day and gabapentin 800 mg 4 times a day. And also is receiving compounding cream that provides some relief. Patient denies any side effects from these medications. She states these medications adequately manage her pain. She denies any new trauma or injury to the site. She denies any change to the location or type of pain she experiences. Her Sky is [id number]. It has been reviewed and appropriate. Review of Systems: General: No recent weight changes, no fever, no sleep disturbances Respiratory: No cough, no shortness of air, no recurring pulmonary infections Cardiovascular/peripheral vascular: No chest pain, no palpitations, no edema, no shortness of breath Gastrointestinal: No new onset incontinence, normal bowel movements reported Genitourinary: No new onset incontinence Musculoskeletal: Mid back pain Psychiatric: [Normal mood/affect] Neurological: [Denies weakness in extremities], [denies balance issues] Objective:: Physical Exam: General: Alert and oriented x3, no acute distress, pleasant and cooperative Lungs: Respirations even and unlabored, symmetrical chest expansion Eyes: PERRL Musculoskeletal: Flexion and extension of thoracic [spine] somewhat guarded secondary to pain, [antalgic gait noted] Neurological: Speech clear, no gross sensory deficit Assessment:: Degenerative disc disease of thoracic spine, degenerative disc disease of lumbar spine with lumbar radiculopathy symptoms, mid back pain Plan:: Patient has had 90% improvement since having her TESI. At this time she is doing well with her medication regimen and injective therapy. I will refill the patient's [place] 7.5 mg 5 times a day and gabapentin 800 mg 4 times a day. I will give the patient a 1 month refill of this medication. Patient will follow up in office in 1 month. Patient will return to clinic in 1 month for follow-up and reevaluation of symptoms. Patient has been instructed to contact the clinic with any concerns before the next appointment. Dr. Watson has reviewed this note and agrees with this plan of care. This note was dictated using voice recognition software and make contain errors or omissions. [facility] History I have reviewed the patient's past medical history: Yes Medical History: Reports:: Chronic Obstructive Pulmonary Disease (COPD), Gastroesophageal Reflux Disease(GERD) Denies:: Diabetes Mellitus Type 1, Diabetes Mellitus Type 2, MRSA *Have you ever received a pneumonia vaccine?: No *Have you received a flu vaccine this season?: No Other Medical History: Reports: Thyroid Disease Other Surgeries: Yes: No Previous Surgery, Tubal Ligation Amputation: No Fractures: No - *Social History Smoking Status: Current every day smoker Tobacco Type: cigarettes # Packs/Day (cigarettes): 1 Alcohol Intake: never Substance Use Type: denies use *Occupational Status:: other *Travel in the last 8 weeks: None Family Hx:: No significant family history
[2021-09-19 14:52] LABS: Phencyclidine Screen,Urine Negative ng/ml (<25)
[2021-09-19 14:58] LABS: Amphetamine/Metha Screen,Urine Negative ng/ml (<1000); Barbiturates Screen,Urine Negative ng/ml (<200)
[2021-09-19 14:59] LABS: Benzodiazepines Screen,Urine Negative ng/ml (<200); Cannabinoid Screen,Urine Negative ng/ml (<50)
[2021-09-19 15:03] LABS: Opiate Screen,Urine Positive ng/ml (<300)
[2021-09-19 15:04] LABS: Cocaine Screen,Urine Negative ng/ml (<300)
[2021-09-19 15:05] LABS: Methadone Screen,Urine Negative ng/ml (<300)
[2021-09-22 09:17] LABS: Gabapentin,Urine 232.3 ug/mL (.)
[2021-09-26 18:12] LABS: Codeine Negative (Cutoff=100); Hydrocodone Positive (.); Hydromorphone Positive (.); Morphine Negative (Cutoff=100); Opiates Positive (.)
== END ==
PROVIDERS: Student in an Organized Health Care Education/Training Program; PCP Emergency Medicine; Visit Provider Nurse Practitioner Family
DX: M51.34 Other intervertebral disc degeneration, thoracic region (principal); M51.16 Intervertebral disc disorders with radiculopathy, lumbar region
CPT/HCPCS: 80305; 80307; 80361; 80365; 99212; G0463; G0480

== ENCOUNTER → 2021-10-20 13:09 | Outpatient (POV) | payer MEDICAID, SELFPAY ==
[2021-10-20 13:32] VITALS: BP 100/67; PULSE 77; RESP 20; BMI 25.0
--- NOTE | 2021-10-20 13:42 | EXP.PAIN.SOA ---
[facility] Pain Management SOAP Note Subjective:: Patient is a pleasant 61-year-old female who presents today for follow-up and medication refill. We are currently treating the patient for degenerative disc disease of thoracic spine, lumbar spine with lumbar radiculopathy symptoms and mid back pain. Today the patient rates her pain a 3 out of 10 and states it is primarily in her low back. She describes this as an aching sensation that is worse with increased activity. She does use [id number]-gpr-sagfohy Tylenol and ibuprofen with some relief. She is currently managed with gabapentin 800 mg 4 times a day and [place] 7.5 mg 5 times a day. Patient denies any side effects from this medication. She states this medication is adequately helping manage her pain. She is requesting refills at today's visit. Patient is also prescribed compounding cream that she states provides significant improvement of her symptoms. Her Sky is [id number]. It has been reviewed and appropriate. Review of Systems: General: No recent weight changes, no fever, no sleep disturbances Respiratory: No cough, no shortness of air, no recurring pulmonary infections Cardiovascular/peripheral vascular: No chest pain, no palpitations, no edema, no shortness of breath Gastrointestinal: No new onset incontinence, normal bowel movements reported Genitourinary: No new onset incontinence Musculoskeletal: Mid/low back pain Psychiatric: [Normal mood/affect] Neurological: [Denies weakness in extremities], [denies balance issues] Objective:: Physical Exam: General: Alert and oriented x3, no acute distress, pleasant and cooperative Lungs: Respirations even and unlabored, symmetrical chest expansion Eyes: PERRL Musculoskeletal: Flexion and extension of thoracic, lumbar [spine] somewhat guarded secondary to pain, [antalgic gait noted] Neurological: Speech clear, no gross sensory deficit Assessment:: Degenerative disc disease of thoracic and lumbar spine with lumbar radiculopathy symptoms, mid back pain Plan:: Patient does continue to have significant pain in her mid/low back. I will refill her gabapentin 800 mg 4 times a day and [place] 7.5 mg 5 times a day and provide a 1 month supply of these medications. Patient will return to clinic in 1 month for follow-up, reevaluation of symptoms and medication refill. Patient has been advised of risks of oversedation with the prescribed medication. Narcan has been offered to the patient in the event of oversedation. Patient has been advised that a family member should also be educated regarding administration of Narcan. Patient has been instructed to contact the clinic with any concerns before the next appointment. Dr. Watson has reviewed this note and agrees with this plan of care. This note was dictated using voice recognition software and make contain errors or omissions. [facility] Social History (Updated 10/20/21 @ 13:34 by Hailee Ro RN) Smoking Status: Current every day smoker tobacco type: cigarettes packs per day: 1 alcohol intake: never substance use type: denies use current occupational status: other Travel in the last 8 weeks: None
== END | disposition home or self-care (01) ==
PROVIDERS: PCP Emergency Medicine; Visit Provider Nurse Practitioner Family
DX: M51.16 Intervertebral disc disorders with radiculopathy, lumbar region (principal)
CPT/HCPCS: 99212; G0463

== ENCOUNTER → 2021-11-17 11:12 | Outpatient (POV) | payer MEDICAID, SELFPAY ==
[2021-11-17 11:39] VITALS: BP 110/68; PULSE 82; RESP 18; TEMP 36.4; O2SAT 90; BMI 25.0
--- NOTE | 2021-11-17 11:45 | EXP.PAIN.SOA ---
[facility] Pain Management SOAP Note Subjective:: Patient is a pleasant 61-year-old female who presents today for medication refill and follow-up. We are currently treating the patient for degenerative disc disease of thoracic spine and lumbar spine with lumbar radiculopathy symptoms, mid back pain. Today the patient rates her pain a 4 out of 10. She states the pain is in her low back and describes it as a aching, throbbing sensation that is worse with increased activity. Patient denies any new trauma or injury. Patient denies any change of the location or type of pain she experiences. She does use [id number]-[id number] Tylenol and ibuprofen with some relief. She is also managed with gabapentin 800 mg 4 times a day and [place] 7.5 mg 5 times a day. Patient denies any side effects from this medication. She states this medication does adequately manage her pain. She is requesting refills at today's visit. She also states she is using her compounding cream and it provides significant improvement of her symptoms. Her Sky is [id number] with a morphine equivalent of 38. It has been reviewed and appropriate. Review of Systems: General: No recent weight changes, no fever, no sleep disturbances Respiratory: No cough, no shortness of air, no recurring pulmonary infections Cardiovascular/peripheral vascular: No chest pain, no palpitations, no edema, no shortness of breath Gastrointestinal: No new onset incontinence, normal bowel movements reported Genitourinary: No new onset incontinence Musculoskeletal: Low back pain Psychiatric: [Normal mood/affect] Neurological: [Denies weakness in extremities], [denies balance issues] Objective:: Physical Exam: General: Alert and oriented x3, no acute distress, pleasant and cooperative Lungs: Respirations even and unlabored, symmetrical chest expansion Eyes: PERRL Musculoskeletal: Flexion and extension of lumbar [spine] somewhat guarded secondary to pain, [antalgic gait noted] Neurological: Speech clear, no gross sensory deficit Assessment:: Degenerative disc disease of thoracic spine and lumbar spine with lumbar radiculopathy symptoms, mid back pain Plan:: Patient continues to have significant pain in her low back however she is doing well with her current medication regimen. I will refill the patient's [place] 7.5 mg 5 times a day and gabapentin 800 mg 4 times a day and provide a 1 month supply of this medication. Patient states she is doing well on her compounding cream refills at this time. We will follow-up with the patient in 1 month. Patient will return to clinic in 1 month for reevaluation of symptoms and medication refill. Patient has been advised of risks of oversedation with the prescribed medication. Narcan has been offered to the patient in the event of oversedation. Patient has been advised that a family member should also be educated regarding administration of Narcan. Patient has been instructed to contact the clinic with any concerns before the next appointment. Dr. Watson has reviewed this note and agrees with this plan of care. This note was dictated using voice recognition software and make contain errors or omissions. [facility] Social History (Updated 10/20/21 @ 13:34 by Hailee Ro RN) Smoking Status: Current every day smoker tobacco type: cigarettes packs per day: 1 alcohol intake: never substance use type: denies use current occupational status: disabled Travel in the last 8 weeks: None
== END | disposition home or self-care (01) ==
PROVIDERS: PCP Emergency Medicine; Visit Provider Nurse Practitioner Family
DX: M51.16 Intervertebral disc disorders with radiculopathy, lumbar region (principal); M51.34 Other intervertebral disc degeneration, thoracic region; Z72.0 Tobacco use
CPT/HCPCS: 99212; G0463

== ENCOUNTER → 2021-12-19 10:17 | Outpatient (POV) | payer MEDICAID, SELFPAY ==
--- NOTE | 2021-12-19 10:55 | A.OFFVIS_ITS ---
[facility] Pain Management SOAP Note Subjective:: Patient is a pleasant 61-year-old female who presents today for medication refill and follow-up. We are currently treating the patient for degenerative disc disease of thoracic spine and lumbar spine with lumbar radiculopathy symptoms, mid back pain. Today the patient rates her pain a 3 out of 10. Patient denies any new trauma or injury. Patient denies any change in location or type of pain she experiences. Patient does state her pain is in her low back and radiates into her bilateral lower extremities. Patient is currently managed with gabapentin 800 mg 4 times a day and [place] 7.5 mg 5 times a day. Patient denies any side effects from this medication. She states this medication does adequately manage her pain symptoms. She is requesting refill at today's visit. Patient does also use [id number] Tylenol and ibuprofen as needed for additional relief. Patient is also prescribed compounding cream that she states provides significant improvement as well. Her Sky is [id number] with a morphine equivalent of 38. It has been reviewed and appropriate. Review of Systems: General: No recent weight changes, no fever, no sleep disturbances Respiratory: No cough, no shortness of air, no recurring pulmonary infections Cardiovascular/peripheral vascular: No chest pain, no palpitations, no edema, no shortness of breath Gastrointestinal: No new onset incontinence, normal bowel movements reported Genitourinary: No new onset incontinence Musculoskeletal: Low back pain Psychiatric: [Normal mood/affect] Neurological: [Denies weakness in extremities], [denies balance issues] Objective:: Physical Exam: General: Alert and oriented x3, no acute distress, pleasant and cooperative Lungs: Respirations even and unlabored, symmetrical chest expansion Eyes: PERRL Musculoskeletal: Flexion and extension of lumbar [spine] somewhat guarded secondary to pain, [antalgic gait noted] Neurological: Speech clear, no gross sensory deficit Assessment:: Degenerative disc disease of thoracic and lumbar spine with lumbar radiculopathy symptoms, mid back pain Plan:: Patient continues to have significant pain in her mid to low back however she is currently doing well on her medication regimen. I will refill the patient's gabapentin 800 mg 4 times a day and [place] 7.5 mg 5 times a day and provide a 1 month supply of this medication. Patient will return to clinic in 1 month for reevaluation of symptoms, medication refill and follow-up. Patient has been advised of risks of oversedation with the prescribed medication. Narcan has been offered to the patient in the event of oversedation. Patient has been advised that a family member should also be educated regarding administration of Narcan. Patient has been instructed to contact the clinic with any concerns before the next appointment. Dr. Watson has reviewed this note and agrees with this plan of care. This note was dictated using voice recognition software and make contain errors or omissions. [facility] Social History Smoking Status: Current every day smoker tobacco type: cigarettes packs per day: 1 alcohol intake: never substance use type: denies use current occupational status: disabled Travel in the last 8 weeks: None
[2021-12-19 11:13] VITALS: BP 116/57; PULSE 78; RESP 18; O2SAT 93; BMI 25.0
== END | disposition home or self-care (01) ==
PROVIDERS: PCP Emergency Medicine; Visit Provider Nurse Practitioner Family
DX: M51.16 Intervertebral disc disorders with radiculopathy, lumbar region (principal); M51.34 Other intervertebral disc degeneration, thoracic region; Z72.0 Tobacco use; Z79.899 Other long term (current) drug therapy
CPT/HCPCS: 99212; G0463

== ENCOUNTER → 2021-12-19 10:50 | Outpatient (CLI) | payer MEDICAID, SELFPAY ==
[2021-12-19 12:18] LABS: Amphetamine/Metha Screen,Urine Negative ng/ml (<1000); Barbiturates Screen,Urine Negative ng/ml (<200)
[2021-12-19 12:19] LABS: Benzodiazepines Screen,Urine Negative ng/ml (<200)
[2021-12-19 12:20] LABS: Cannabinoid Screen,Urine Negative ng/ml (<50); Cocaine Screen,Urine Negative ng/ml (<300)
[2021-12-19 12:21] LABS: Methadone Screen,Urine Negative ng/ml (<300)
[2021-12-19 12:22] LABS: Opiate Screen,Urine Positive ng/ml (<300); Phencyclidine Screen,Urine Negative ng/ml (<25)
[2021-12-26 14:21] LABS: Codeine Negative (Cutoff=100); Hydrocodone Positive (.); Hydromorphone Positive (.); Morphine Negative (Cutoff=100); Opiates Positive (.)
== END ==
PROVIDERS: PCP Emergency Medicine; Visit Provider Nurse Practitioner Family
DX: Z79.891 Long term (current) use of opiate analgesic (principal)
CPT/HCPCS: 80305; 80361; 80365; G0480

== ENCOUNTER → 2022-01-24 11:03 | Outpatient (POV) | payer MEDICAID, SELFPAY ==
[2022-01-24 11:55] VITALS: PULSE 74; RESP 20; BMI 25.3
--- NOTE | 2022-01-24 12:04 | EXP.PAIN.SOA ---
[facility] Pain Management SOAP Note Subjective:: Patient is a pleasant 61-year-old female who presents today for medication refill and follow-up. We are currently treating the patient for degenerative disc disease of thoracic and lumbar spine with lumbar radiculopathy symptoms, mid back pain. Today the patient rates her pain a 3 out of 10. Patient denies any new trauma or injury. Patient denies any change to location or type of pain she experiences. Patient is currently managed with gabapentin 800 mg 4 times a day and [place] 7.5 mg 5 times a day. Patient denies any side effects from this medication. Patient states this medication does adequately manage her pain symptoms. She is requesting refills at today's visit. Patient also states she has been experiencing allover itching that she believes has narrowed down to a vitamin she was taking. Patient states that it has been getting better since stopping this medication. Her Sky is [id number]. It has been reviewed and appropriate. Review of Systems: General: No recent weight changes, no fever, no sleep disturbances Respiratory: No cough, no shortness of air, no recurring pulmonary infections Cardiovascular/peripheral vascular: No chest pain, no palpitations, no edema, no shortness of breath Gastrointestinal: No new onset incontinence, normal bowel movements reported Genitourinary: No new onset incontinence Musculoskeletal: Low back pain Psychiatric: [Normal mood/affect] Neurological: [Denies weakness in extremities], [denies balance issues] Objective:: Physical Exam: General: Alert and oriented x3, no acute distress, pleasant and cooperative Lungs: Respirations even and unlabored, symmetrical chest expansion Eyes: PERRL Musculoskeletal: Flexion and extension of thoracic, lumbar [spine] somewhat guarded secondary to pain, [antalgic gait noted] Neurological: Speech clear, no gross sensory deficit Assessment:: Degenerative disc disease of thoracic and lumbar spine with lumbar radiculopathy symptoms, mid back pain Plan:: Patient continues to experience significant pain in her mid to low back however she is doing well with her current medication regimen. I will refill the patient's gabapentin 800 mg 4 times a day in [place] 7.5 mg 5 times a day and provide a 1 month supply of these medications. Patient will return to clinic in 1 month for reevaluation of symptoms, medication refill and follow-up. Patient has been advised of risks of oversedation with the prescribed medication. Narcan has been offered to the patient in the event of oversedation. Patient has been advised that a family member should also be educated regarding administration of Narcan. Patient has been instructed to contact the clinic with any concerns before the next appointment. Dr. Watson has reviewed this note and agrees with this plan of care. This note was dictated using voice recognition software and make contain errors or omissions. [facility] Disclaimer: The information contained in this section may have been updated after the patient was seen, as this information can be updated by other users. Social History Smoking Status: Current every day smoker tobacco type: cigarettes packs per day: 1 alcohol intake: never substance use type: denies use current occupational status: other Travel in the last 8 weeks: None
== END | disposition home or self-care (01) ==
PROVIDERS: PCP Emergency Medicine; Visit Provider Nurse Practitioner Family
DX: M51.16 Intervertebral disc disorders with radiculopathy, lumbar region (principal); M51.34 Other intervertebral disc degeneration, thoracic region; F17.210 Nicotine dependence, cigarettes, uncomplicated
CPT/HCPCS: 99212; G0463

== ENCOUNTER → 2022-02-23 08:47 | Outpatient (POV) | payer MEDICAID, SELFPAY ==
--- NOTE | 2022-02-23 08:57 | A.OFFVIS_ITS ---
[facility] Pain Management SOAP Note Subjective:: Patient is a pleasant 62-year-old female who presents today for medication refill and follow-up. We are currently treating the patient for degenerative disc disease of lumbar spine and thoracic spine with lumbar radiculopathy symptoms, mid back pain. Today the patient rates her pain a 3 out of 10. Patient denies any new trauma or injury. Patient denies any change location or type of pain she experiences. Patient is currently managed with gabapentin 800 mg 4 times a day and [place] 7.5 mg 5 times a day. Patient denies any side effects from these medications. She states these medications do adequately manage her pain symptoms. She is requesting a refill at today's visit. Her Sky is [id number]. Its been reviewed and appropriate. Review of Systems: General: No recent weight changes, no fever, no sleep disturbances Respiratory: No cough, no shortness of air, no recurring pulmonary infections Cardiovascular/peripheral vascular: No chest pain, no palpitations, no edema, no shortness of breath Gastrointestinal: No new onset incontinence, normal bowel movements reported Genitourinary: No new onset incontinence Musculoskeletal: Low back pain Psychiatric: [Normal mood/affect] Neurological: [Denies weakness in extremities], [denies balance issues] Objective:: Physical Exam: General: Alert and oriented x3, no acute distress, pleasant and cooperative Lungs: Respirations even and unlabored, symmetrical chest expansion Eyes: PERRL Musculoskeletal: Flexion and extension of lumbar [spine] somewhat guarded secondary to pain, [antalgic gait noted] Neurological: Speech clear, no gross sensory deficit Assessment:: Degenerative disc disease of thoracic and lumbar spine with lumbar radiculopathy symptoms, mid back pain Plan:: Patient continues to experience significant pain in her mid to low back however she is doing well with her current medication regimen. I will refill the patient's gabapentin 800 mg 4 times a day and [place] 7.5 mg 5 times a day and provide a 1 month supply of this medication. Patient will return to clinic in 1 month for reevaluation of symptoms, medication refill and follow-up. Patient has been advised of risks of oversedation with the prescribed medication. Narcan has been offered to the patient in the event of oversedation. Patient has been advised that a family member should also be educated regarding administration of Narcan. Patient has been instructed to contact the clinic with any concerns before the next appointment. Dr. Watson has reviewed this note and agrees with this plan of care. This note was dictated using voice recognition software and make contain errors or omissions. [facility] Disclaimer: The information contained in this section may have been updated after the patient was seen, as this information can be updated by other users. Medical History (Updated 01/24/22 @ 13:11 by SANTIAGO Danielson) COPD (chronic obstructive pulmonary disease) COPD exacerbation GERD (gastroesophageal reflux disease) Hypothyroidism Osteopenia Social History Smoking Status: Current every day smoker tobacco type: cigarettes packs per day: 1 alcohol intake: never substance use type: denies use current occupational status: other Travel in the last 8 weeks: None
[2022-02-23 09:09] VITALS: BP 93/54; PULSE 86; RESP 18; O2SAT 98; BMI 25.8
== END | disposition home or self-care (01) ==
PROVIDERS: PCP Emergency Medicine; Visit Provider Nurse Practitioner Family
DX: M51.16 Intervertebral disc disorders with radiculopathy, lumbar region (principal); M51.34 Other intervertebral disc degeneration, thoracic region
CPT/HCPCS: 99212; G0463

== ENCOUNTER → 2022-02-23 09:03 | Outpatient (CLI) | payer MEDICAID, SELFPAY ==
[2022-02-23 10:48] LABS: Barbiturates Screen,Urine Negative ng/ml (<200)
[2022-02-23 10:49] LABS: Amphetamine/Metha Screen,Urine Negative ng/ml (<1000); Benzodiazepines Screen,Urine Negative ng/ml (<200)
[2022-02-23 10:50] LABS: Methadone Screen,Urine Negative ng/ml (<300)
[2022-02-23 10:51] LABS: Cannabinoid Screen,Urine Negative ng/ml (<50); Cocaine Screen,Urine Negative ng/ml (<300)
[2022-02-23 10:52] LABS: Opiate Screen,Urine Positive ng/ml (<300); Phencyclidine Screen,Urine Negative ng/ml (<25)
[2022-02-28 16:51] LABS: Codeine Negative (Cutoff=100); Hydrocodone Positive (.); Hydromorphone Positive (.); Morphine Negative (Cutoff=100); Opiates Positive (.)
== END ==
PROVIDERS: PCP Emergency Medicine; Visit Provider Nurse Practitioner Family
DX: Z79.891 Long term (current) use of opiate analgesic (principal)
CPT/HCPCS: 80305; 80361; 80365; G0480

== ENCOUNTER → 2022-03-27 10:17 | Outpatient (POV) | payer MEDICAID, SELFPAY ==
--- NOTE | 2022-03-27 11:24 | A.OFFVIS_ITS ---
[facility] Pain Management SOAP Note Subjective:: Patient is a pleasant 62-year-old female who presents today for medication refill and follow-up. We are currently treating the patient for degenerative disc disease of lumbar and thoracic spine with lumbar radiculopathy symptoms, mid back pain. Today she rates her pain a 3 out of 10. Patient denies any new trauma or injury. Patient denies any change to location or type of pain she experiences. Patient is currently managed on gabapentin 800 mg 4 times a day and [place] 7.5 mg 5 times a day. Patient denies any side effects from these medications. She is requesting a refill at today's visit. Patient is also interested in getting a back brace for increased support. Her Sky is [phone]. Its been reviewed and appropriate. Review of Systems: General: No recent weight changes, no fever, no sleep disturbances Respiratory: No cough, no shortness of air, no recurring pulmonary infections Cardiovascular/peripheral vascular: No chest pain, no palpitations, no edema, no shortness of breath Gastrointestinal: No new onset incontinence, normal bowel movements reported Genitourinary: No new onset incontinence Musculoskeletal: Low back pain Psychiatric: [Normal mood/affect] Neurological: [Denies weakness in extremities], [denies balance issues] Objective:: Physical Exam: General: Alert and oriented x3, no acute distress, pleasant and cooperative Lungs: Respirations even and unlabored, symmetrical chest expansion Eyes: PERRL Musculoskeletal: Flexion and extension of lumbar [spine] somewhat guarded secondary to pain, [antalgic gait noted] Neurological: Speech clear, no gross sensory deficit Assessment:: Degenerative disc disease of thoracic and lumbar spine with lumbar radiculopathy symptoms, mid back pain Plan:: Patient continues to experience significant pain in her mid to low back however she is doing well with her current medication regimen. I will refill her gabapentin 800 mg 4 times a day and [place] 7.5 mg 5 times a day and provide a 1 month supply of this medication. I will also order the patient a back brace to provide additional support and stabilization and better pain improvement. Patient will return to clinic in 1 month for reevaluation of symptoms, medication refill and follow-up. Patient has been advised of risks of oversedation with the prescribed medication. Narcan has been offered to the patient in the event of oversedation. Patient has been advised that a family member should also be educated regarding administration of Narcan. Patient has been instructed to contact the clinic with any concerns before the next appointment. Dr. Watson has reviewed this note and agrees with this plan of care. This note was dictated using voice recognition software and make contain errors or omissions. [facility] Disclaimer: The information contained in this section may have been updated after the patient was seen, as this information can be updated by other users. Medical History (Updated 01/24/22 @ 13:11 by SANTIAGO Danielson) COPD (chronic obstructive pulmonary disease) COPD exacerbation GERD (gastroesophageal reflux disease) Hypothyroidism Osteopenia Social History Smoking Status: Current every day smoker tobacco type: cigarettes packs per day: 1 alcohol intake: never substance use type: denies use current occupational status: other Travel in the last 8 weeks: None
[2022-03-27 12:34] VITALS: BP 127/68; PULSE 85; RESP 18; O2SAT 97; BMI 25.8
== END | disposition home or self-care (01) ==
PROVIDERS: PCP Emergency Medicine; Visit Provider Nurse Practitioner Family
DX: M51.16 Intervertebral disc disorders with radiculopathy, lumbar region (principal); M51.34 Other intervertebral disc degeneration, thoracic region
CPT/HCPCS: 99212; G0463

== ENCOUNTER → 2022-04-19 09:55 | Outpatient (CLI) | payer MEDICAID, SELFPAY ==
[2022-04-19 14:33] LABS: Basophils # 0.2 K/mm3 (0-0.2); Basophils % 2.2 % (0.1-2.0); Eosinophils # 0.1 K/mm3 (0.0-0.4); Eosinophils % 1.2 % (0.1-12.0); Hematocrit 53.2 % (37.0-47.0); Hemoglobin 17.2 g/dL (12.2-16.2); Lymphocytes # 3.8 K/mm3 (0.7-4.5); Lymphocytes % 44.4 % (10-50); Mean Corpuscular HGB Conc 32.3 g/dL (31.8-35.4); Mean Corpuscular Hemoglobin 31.9 pg (27.0-31.2); Mean Corpuscular Volume 98.6 fl (81-99); Mean Platelet Volume 9.1 fl (7.4-10.4); Monocytes # 0.4 K/mm3 (0.1-1.0); Neutrophils # 4.1 K/mm3 (1.8-7.8); Neutrophils % 48.1 % (37.0-80.0); Platelet Count 266 K/mm3 (142-424); Red Blood Count 5.39 M/mm3 (4.20-5.40); Red Cell Distribution Width 12.7 % (11.5-17.5); White Blood Count 8.6 K/mm3 (4.8-10.8)
[2022-04-19 15:27] LABS: Alanine Aminotransferase 13 U/L (12-78); Albumin Level 4.3 g/dl (3.5-5.0); Albumin/Globulin Ratio 1.4 (1.1-1.8); Alkaline Phosphatase 165 U/L (38-126); Aspartate Amino Transferase 26 U/L (14-36); Bilirubin,Total 0.6 mg/dl (0.2-1.3); Blood Urea Nitrogen 12 mg/dl (7-17); Calcium 9.1 mg/dl (8.4-10.2); Carbon Dioxide 35 mmol/L (22.0-30.0); Chloride 98 mmol/L (98-107); Cholesterol 277 mg/dl (140-200); Estimated Glomerular Filt Rate 85 ml/min (>60); GFR (African American) 103 ML/MIN (>60); Globulin 3.1 g/dL (1.3-3.2); Glucose 82 mg/dl (74-100); HDL Cholesterol 55 mg/dl (40-60); Sodium 138 mmol/L (136-145); Total Protein,Serum 7.4 g/dl (6.3-8.2); Triglycerides 195 mg/dl (30-150); VLDL Cholesterol 39 mg/dL (0-40)
[2022-04-19 15:38] LABS: Direct LDL Cholesterol 161.81 mg/dL (100-129)
[2022-04-19 15:44] LABS: 25-OH Vitamin D, Total 23.6 ng/mL (30-100)
[2022-04-19 15:45] LABS: Free T4 (Free Thyroxine) 1.85 ng/dl (0.78-2.19)
[2022-04-19 15:58] LABS: Thyroid Stimulating Hormone 3.59 uIU/mL (0.465-4.68)
== END ==
PROVIDERS: PCP Emergency Medicine; Visit Provider Emergency Medicine
DX: E03.9 Hypothyroidism, unspecified (principal); E55.9 Vitamin D deficiency, unspecified; J44.9 Chronic obstructive pulmonary disease, unspecified
CPT/HCPCS: 80053; 80061; 82306; 84439; 84443; 85025

== ENCOUNTER → 2022-04-24 10:19 | Outpatient (POV) | payer MEDICAID, SELFPAY ==
[2022-04-24 11:14] VITALS: BP 125/64; PULSE 77; RESP 20; BMI 25.0
--- NOTE | 2022-04-24 12:30 | EXP.PAIN.SOA ---
[facility] Pain Management SOAP Note Subjective:: Patient is a pleasant 62-year-old female who presents for medication refill and follow-up. We are currently treating the patient for degenerative disc disease of lumbar and thoracic spine with lumbar and thoracic radiculopathy symptoms, mid back pain. Today she rates her pain a 3 out of 10. Patient denies any new trauma or injury. Patient denies any change location or type of pain she experiences. She is currently managed with gabapentin 800 mg 4 times a day and [place] 7.5 mg 5 times a day. Patient denies any side effects from this medication. She is requesting refills at today's visit. Patient has had epidurals in the past that did provide significant relief. At our last visit we did prescribe her a back brace that she states has provided additional relief. Her Sky is [id number]. Its been reviewed and appropriate. Review of Systems: General: No recent weight changes, no fever, no sleep disturbances Respiratory: No cough, no shortness of air, no recurring pulmonary infections Cardiovascular/peripheral vascular: No chest pain, no palpitations, no edema, no shortness of breath Gastrointestinal: No new onset incontinence, normal bowel movements reported Genitourinary: No new onset incontinence Musculoskeletal: Low back pain Psychiatric: [Normal mood/affect] Neurological: [Denies weakness in extremities], [denies balance issues] Objective:: Physical Exam: General: Alert and oriented x3, no acute distress, pleasant and cooperative Lungs: Respirations even and unlabored, symmetrical chest expansion Eyes: PERRL Musculoskeletal: Flexion and extension of lumbar [spine] somewhat guarded secondary to pain, [antalgic gait noted] Neurological: Speech clear, no gross sensory deficit Assessment:: Degenerative disc disease of thoracic and lumbar spine with thoracic and lumbar radiculopathy symptoms, mid back pain Plan:: Patient is doing well with her current medication regimen. I will refill her gabapentin 800 mg 4 times a day and [place] 7.5 mg 5 times a day and provide a 1 month supply of these medications. Patient will return to clinic in 1 month for reevaluation of symptoms, medication refill and follow-up. Patient has been advised of risks of oversedation with the prescribed medication. Narcan has been offered to the patient in the event of oversedation. Patient has been advised that a family member should also be educated regarding administration of Narcan. Patient has been instructed to contact the clinic with any concerns before the next appointment. Dr. Watson has reviewed this note and agrees with this plan of care. This note was dictated using voice recognition software and make contain errors or omissions. [facility] Disclaimer: The information contained in this section may have been updated after the patient was seen, as this information can be updated by other users. Medical History COPD (chronic obstructive pulmonary disease) COPD exacerbation GERD (gastroesophageal reflux disease) Hypothyroidism Osteopenia Social History Smoking Status: Current every day smoker tobacco type: cigarettes packs per day: 1 alcohol intake: never substance use type: denies use current occupational status: other Travel in the last 8 weeks: None
== END | disposition home or self-care (01) ==
PROVIDERS: PCP Emergency Medicine; Visit Provider Nurse Practitioner Family
DX: M51.16 Intervertebral disc disorders with radiculopathy, lumbar region (principal); M50.10 Cervical disc disorder with radiculopathy, unspecified cervical region
CPT/HCPCS: 99212; G0463

== ENCOUNTER → 2022-05-04 08:11 | Outpatient (CLI) | payer MEDICAID, SELFPAY ==
--- NOTE | 2022-05-04 08:11 | MM_ITS ---
PROCEDURE INFORMATION: Exam: Bilateral Screening 3D Mammography Exam date and time: 05/04/2022 8:15 AM Age: 62 years old Clinical indication: Screening. No family history of breast cancer. TECHNIQUE: Imaging protocol: Bilateral Screening tomosynthesis and 2D mammography including computer-aided detection (CAD) when performed. COMPARISON: [facility] DIG MAMM-DX ANNALISA 07/31/2013 1:36 PM FINDINGS: MAMMOGRAPHY: Breast composition: There are scattered areas of fibroglandular density. Mass: None. Architectural distortion: None. Calcifications: No suspicious calcifications. Asymmetric density: None. Skin thickening: None. Axillary adenopathy: None. IMPRESSION: No mammographic evidence of malignancy. Annual screening is recommended unless otherwise clinically indicated. ASSESSMENT: BI-RADS Category 1: Negative
== END ==
PROVIDERS: PCP Emergency Medicine; Visit Provider Emergency Medicine
DX: Z12.31 Encounter for screening mammogram for malignant neoplasm of breast (principal)
CPT/HCPCS: 77063; 77067

== ENCOUNTER → 2022-05-25 12:40 | Outpatient (POV) | payer MEDICAID, SELFPAY ==
--- NOTE | 2022-05-25 12:56 | A.OFFVIS_ITS ---
[facility] Pain Management SOAP Note Subjective:: Patient is a pleasant 62-year-old female who presents today for medication refill and follow-up. We are currently treating the patient for degenerative disc disease of thoracic and lumbar spine with thoracic and lumbar radiculopathy symptoms, mid back pain.? Today she rates her pain a 3 out of 10.? Patient denies any new trauma or injury.? Patient denies any change location or type of pain she experiences.? She is currently managed with gabapentin 800 mg 4 times a day and [place] 7.5 mg 5 times a day.? Patient denies any side effects from this medication.? She is also prescribed compounding cream that she states does provide additional relief. Her Sky is [id number].? Its been reviewed and appropriate. Review of Systems: General: No recent weight changes, no fever, no sleep disturbances Respiratory: No cough, no shortness of air, no recurring pulmonary infections Cardiovascular/peripheral vascular: No chest pain, no palpitations, no edema, no shortness of breath Gastrointestinal: No new onset incontinence, normal bowel movements reported Genitourinary: No new onset incontinence Musculoskeletal: Low back pain Psychiatric: [Normal mood/affect] Neurological: [Denies weakness in extremities], [denies balance issues] Objective:: Physical Exam: General: Alert and oriented x3, no acute distress, pleasant and cooperative Lungs: Respirations even and unlabored, symmetrical chest expansion Eyes: PERRL Musculoskeletal: Flexion and extension of lumbar [spine] somewhat guarded secondary to pain, [antalgic gait noted] Neurological: Speech clear, no gross sensory deficit Assessment:: Degenerative disc disease of thoracic and lumbar spine with lumbar and thoracic radiculopathy symptoms, mid back pain Plan:: Patient continues to do well with her current medication regimen. I will refill her gabapentin 800 mg 4 times a day and [place] 7.5 mg 5 times a day and provide a 1 month supply of this medication. Patient will return to clinic in 1 month for reevaluation of symptoms and medication refill. Patient has been advised of risks of oversedation with the prescribed medication. Narcan has been offered to the patient in the event of oversedation. Patient has been advised that a family member should also be educated regarding administration of Narcan. Patient has been instructed to contact the clinic with any concerns before the next appointment. Dr. Watson has reviewed this note and agrees with this plan of care. This note was dictated using voice recognition software and make contain errors or omissions. [facility] Disclaimer: The information contained in this section may have been updated after the patient was seen, as this information can be updated by other users. Medical History COPD (chronic obstructive pulmonary disease) COPD exacerbation GERD (gastroesophageal reflux disease) Hypothyroidism Osteopenia Social History Smoking Status: Current every day smoker tobacco type: cigarettes packs per day: 1 alcohol intake: never substance use type: denies use current occupational status: other Travel in the last 8 weeks: None
[2022-05-25 13:22] VITALS: BP 135/69; PULSE 62; RESP 18; O2SAT 97; BMI 25.4
== END | disposition home or self-care (01) ==
PROVIDERS: PCP Emergency Medicine; Visit Provider Nurse Practitioner Family
DX: M51.16 Intervertebral disc disorders with radiculopathy, lumbar region (principal); M51.14 Intervertebral disc disorders with radiculopathy, thoracic region
CPT/HCPCS: 99212; G0463

== ENCOUNTER → 2022-06-22 12:38 | Outpatient (POV) | payer MEDICAID, SELFPAY ==
--- NOTE | 2022-06-22 13:37 | EXP.PAIN.SOA ---
[facility] Pain Management SOAP Note Subjective:: Patient is a pleasant 62-year-old female who presents today for medication refill and follow-up. We are currently treating the patient for degenerative disc disease of thoracic and lumbar spine with thoracic and lumbar radiculopathy symptoms, mid back pain. Today she rates her pain a 3 out of 10. She states yesterday she may have slept funny and her left shoulder is bothering her. Patient states that it is not bothersome enough to be interfering with her day-to-day activities however she just noticed a little additional soreness. She does also state that she has the sensation as if a hair is running across her thumb on the left hand however nothing is present. She is currently managed with gabapentin 800 mg 4 times a day and [place] 7.5 mg 5 times a day. Patient denies any side effects from these medications. Her Sky is [id number]. Its been reviewed and appropriate. Review of Systems: General: No recent weight changes, no fever, no sleep disturbances Respiratory: No cough, no shortness of air, no recurring pulmonary infections Cardiovascular/peripheral vascular: No chest pain, no palpitations, no edema, no shortness of breath Gastrointestinal: No new onset incontinence, normal bowel movements reported Genitourinary: No new onset incontinence Musculoskeletal: Low back pain, left shoulder pain Psychiatric: [Normal mood/affect] Neurological: [Denies weakness in extremities], [denies balance issues] Objective:: Physical Exam: General: Alert and oriented x3, no acute distress, pleasant and cooperative Lungs: Respirations even and unlabored, symmetrical chest expansion Eyes: PERRL Musculoskeletal: Flexion and extension of lumbar [spine] somewhat guarded secondary to pain, [antalgic gait noted] Neurological: Speech clear, no gross sensory deficit Assessment:: Degenerative disc disease of thoracic and lumbar spine with thoracic and lumbar radiculopathy symptoms, mid back pain Plan:: I have counseled the patient that if she continues to have issues with her left shoulder that we can look into doing injections possibly at a later date. I will refill her gabapentin 800 mg 4 times a day and [place] 7.5 mg 5 times a day and provide a 1 month supply of this medication. Patient will return to clinic in 1 month for reevaluation of symptoms and plan of care. Patient has been advised of risks of oversedation with the prescribed medication. Narcan has been offered to the patient in the event of oversedation. Patient has been advised that a family member should also be educated regarding administration of Narcan. Patient has been instructed to contact the clinic with any concerns before the next appointment. Dr. Watson has reviewed this note and agrees with this plan of care. This note was dictated using voice recognition software and make contain errors or omissions. [facility] Disclaimer: The information contained in this section may have been updated after the patient was seen, as this information can be updated by other users. Medical History COPD (chronic obstructive pulmonary disease) COPD exacerbation GERD (gastroesophageal reflux disease) Hypothyroidism Osteopenia Social History Smoking Status: Current every day smoker tobacco type: cigarettes packs per day: 1 alcohol intake: never substance use type: denies use current occupational status: retired Travel in the last 8 weeks: None
[2022-06-22 13:42] VITALS: BP 102/62; PULSE 79; RESP 18; O2SAT 98; BMI 25.8
== END | disposition home or self-care (01) ==
PROVIDERS: PCP Emergency Medicine; Visit Provider Nurse Practitioner Family
DX: M51.16 Intervertebral disc disorders with radiculopathy, lumbar region (principal); M51.14 Intervertebral disc disorders with radiculopathy, thoracic region
CPT/HCPCS: 99212; G0463

== ENCOUNTER → 2022-06-22 13:21 | Outpatient (CLI) | payer MEDICAID, SELFPAY ==
[2022-06-22 14:02] LABS: Barbiturates Screen,Urine Negative ng/ml (<200)
[2022-06-22 14:03] LABS: Benzodiazepines Screen,Urine Negative ng/ml (<200)
[2022-06-22 14:04] LABS: Amphetamine/Metha Screen,Urine Negative ng/ml (<1000); Methadone Screen,Urine Negative ng/ml (<300)
[2022-06-22 14:05] LABS: Cannabinoid Screen,Urine Negative ng/ml (<50)
[2022-06-22 14:06] LABS: Cocaine Screen,Urine Negative ng/ml (<300); Opiate Screen,Urine Positive ng/ml (<300)
[2022-06-22 14:07] LABS: Phencyclidine Screen,Urine Negative ng/ml (<25)
[2022-06-30 11:05] LABS: Codeine Negative (Cutoff=100); Hydrocodone Positive (.); Hydromorphone Positive (.); Morphine Negative (Cutoff=100); Opiates Positive (.)
== END ==
PROVIDERS: PCP Emergency Medicine; Visit Provider Nurse Practitioner Family
DX: Z79.891 Long term (current) use of opiate analgesic (principal)
CPT/HCPCS: 80305; 80361; 80365; G0480

== ENCOUNTER → 2022-07-17 14:29 | Outpatient (CLI) | payer MEDICAID, SELFPAY ==
[2022-07-17 13:21] LABS: Alanine Aminotransferase 15 U/L (12-78); Albumin Level 4.1 g/dl (3.5-5.0); Albumin/Globulin Ratio 1.3 (1.1-1.8); Alkaline Phosphatase 156 U/L (38-126); Anion Gap 15.5 mEq/L (5-15); Aspartate Amino Transferase 35 U/L (14-36); Bilirubin,Total 0.4 mg/dl (0.2-1.3); Blood Urea Nitrogen 8 mg/dl (7-17); Carbon Dioxide 31 mmol/L (22.0-30.0); Chloride 98 mmol/L (98-107); Chol/HDL Ratio 4.4 (1-3.5); Cholesterol 219 mg/dl (140-200); Estimated Glomerular Filt Rate 102 ml/min (>60); GFR (African American) 123 ML/MIN (>60); Globulin 3.1 g/dL (1.3-3.2); Glucose 96 mg/dl (74-100); HDL Cholesterol 50 mg/dl (40-60); Potassium 4.5 mmoL/L (3.5-5.1); Sodium 140 mmol/L (136-145); Total Protein,Serum 7.2 g/dl (6.3-8.2); Triglycerides 310 mg/dl (30-150); VLDL Cholesterol 62 mg/dL (0-40)
[2022-07-17 13:32] LABS: Direct LDL Cholesterol 106.46 mg/dL (100-129)
[2022-07-17 13:38] LABS: 25-OH Vitamin D, Total 49.2 ng/mL (30-100); Free T4 (Free Thyroxine) 1.57 ng/dl (0.78-2.19)
[2022-07-17 13:52] LABS: Thyroid Stimulating Hormone 2.81 uIU/mL (0.465-4.68)
[2022-07-17 14:13] LABS: Hematocrit 46.7 % (37.0-47.0); Hemoglobin 14.9 g/dL (12.2-16.2); Lymphocytes % 37.3 % (10-50); Mean Corpuscular Hemoglobin 31.6 pg (27.0-31.2); Mean Corpuscular Volume 98.9 fl (81-99); Mean Platelet Volume 8.7 fl (7.4-10.4); Neutrophils % 54.9 % (37.0-80.0); Platelet Count 251 K/mm3 (142-424); Red Blood Count 4.72 M/mm3 (4.20-5.40); Red Cell Distribution Width 12.9 % (11.5-17.5); White Blood Count 8.8 K/mm3 (4.8-10.8)
[2022-07-17 14:14] LABS: Basophils % 0.4 % (0.1-2.0); Eosinophils # 0.1 K/mm3 (0.0-0.4); Eosinophils % 1.4 % (0.1-12.0); Lymphocytes # 3.3 K/mm3 (0.7-4.5); Monocytes # 0.5 K/mm3 (0.1-1.0); Neutrophils # 4.9 K/mm3 (1.8-7.8)
== END ==
PROVIDERS: PCP Emergency Medicine; Visit Provider Emergency Medicine
DX: E03.9 Hypothyroidism, unspecified (principal)
CPT/HCPCS: 80053; 80061; 82306; 84439; 84443; 85025

== ENCOUNTER → 2022-07-24 10:23 | Outpatient (POV) | payer MEDICAID, SELFPAY ==
--- NOTE | 2022-07-24 10:54 | A.OFFVIS_ITS ---
[facility] Pain Management SOAP Note Subjective:: Patient is a pleasant 62-year-old female who presents today for medication refill and follow-up.? We are currently treating the patient for degenerative disc disease of thoracic and lumbar spine with thoracic and lumbar radiculopathy symptoms, mid back pain.? Today she rates her pain a 3 out of 10.? S she denies any new trauma or injury. She denies any change location or type of pain she experiences she is currently managed with gabapentin 800 mg 4 times a day and [place] 7.5 mg 5 times a day.? Patient denies any side effects from these medications.? Her Sky is [id number].? Its been reviewed and appropriate. Review of Systems: General: No recent weight changes, no fever, no sleep disturbances Respiratory: No cough, no shortness of air, no recurring pulmonary infections Cardiovascular/peripheral vascular: No chest pain, no palpitations,? no edema, no shortness of breath Gastrointestinal: No new onset incontinence, normal bowel movements reported Genitourinary: No new onset incontinence Musculoskeletal: Low back pain Psychiatric: [Normal mood/affect] Neurological: [Denies weakness in extremities], [denies balance issues] Objective:: Physical Exam: General: Alert and oriented x3, no acute distress, pleasant and cooperative Lungs: Respirations even and unlabored, symmetrical chest expansion Eyes: PERRL Musculoskeletal: Flexion and extension of lumbar [spine] somewhat guarded secondary to pain, [antalgic gait noted] Neurological: Speech clear, no gross sensory deficit Assessment:: Degenerative disc disease of thoracic and lumbar spine with thoracic and lumbar radiculopathy symptoms, low back pain, mid back pain Plan:: We will refill her gabapentin 800 mg 4 times a day and [place] 7.5 mg 5 times a day and provide a 1 month supply of this medication. Patient will return to clinic in 1 month for reevaluation of symptoms and medication refill. Patient has been advised of risks of oversedation with the prescribed medicat ion. Narcan has been offered to the patient in the event of oversedation. Patient has been advised that a family member should also be educated regarding administration of Narcan. Patient has been instructed to contact the clinic with any concerns before the next appointment. Dr. Watson has reviewed this note and agrees with this plan of care. This note was dictated using voice recognition software and make contain errors or omissions. [facility] Disclaimer: The information contained in this section may have been updated after the patient was seen, as this information can be updated by other users. Medical History COPD (chronic obstructive pulmonary disease) COPD exacerbation GERD (gastroesophageal reflux disease) Hypothyroidism Osteopenia Social History Smoking Status: Current every day smoker tobacco type: cigarettes packs per day: 1 alcohol intake: never substance use type: denies use current occupational status: retired Travel in the last 8 weeks: None
[2022-07-24 11:14] VITALS: BP 133/83; PULSE 72; RESP 18; O2SAT 97; BMI 25.8
== END | disposition home or self-care (01) ==
PROVIDERS: PCP Emergency Medicine; Visit Provider Nurse Practitioner Family
DX: M51.16 Intervertebral disc disorders with radiculopathy, lumbar region (principal); M51.14 Intervertebral disc disorders with radiculopathy, thoracic region
CPT/HCPCS: 99212; G0463

== ENCOUNTER → 2022-08-21 09:47 | Outpatient (POV) | payer MEDICAID, SELFPAY ==
[2022-08-21 10:12] VITALS: BP 98/59; PULSE 66; RESP 18; O2SAT 97; BMI 25.4
--- NOTE | 2022-08-21 10:22 | EXP.PAIN.SOA ---
[facility] Pain Management SOAP Note Subjective:: Patient is a pleasant 62-year-old female who presents today for 1 month follow-up and medication refill. We are currently treating the patient for degenerative disc disease of thoracic and lumbar spine with thoracic and lumbar radiculopathy symptoms, mid back pain. Today she rates her pain a 3 out of 10. She denies any new trauma or injury. She is currently managed with gabapentin 800 mg 4 times a day and [place] 7.5 mg 5 times a day. Patient denies any side effects from these medications. She states these medications do help with her day-to-day pain in her spine. Her Sky is [id number]. Its been reviewed and appropriate. Review of Systems: General: No recent weight changes, no fever, no sleep disturbances Respiratory: No cough, no shortness of air, no recurring pulmonary infections Cardiovascular/peripheral vascular: No chest pain, no palpitations, no edema, no shortness of breath Gastrointestinal: No new onset incontinence, normal bowel movements reported Genitourinary: No new onset incontinence Musculoskeletal: Low back pain Psychiatric: [Normal mood/affect] Neurological: [Denies weakness in extremities], [denies balance issues] Objective:: Physical Exam: General: Alert and oriented x3, no acute distress, pleasant and cooperative Lungs: Respirations even and unlabored, symmetrical chest expansion Eyes: PERRL Musculoskeletal: Flexion and extension of lumbar [spine] somewhat guarded secondary to pain, [antalgic gait noted] Neurological: Speech clear, no gross sensory deficit Assessment:: Degenerative disc disease of thoracic and lumbar spine with thoracic and lumbar radiculopathy symptoms, low back pain, mid back pain Plan:: We will refill the patient's gabapentin 800 mg 4 times a day and [place] 7.5 mg 5 times a day and provide a 1 month supply of these medications. Patient will return to clinic in 1 month for reevaluation of symptoms and medication refill. Patient has been advised of risks of oversedation with the prescribed medication. Narcan has been offered to the patient in the event of oversedation. Patient has been advised that a family member should also be educated regarding administration of Narcan. Patient has been instructed to contact the clinic with any concerns before the next appointment. Dr. Watson has reviewed this note and agrees with this plan of care. This note was dictated using voice recognition software and make contain errors or omissions. [facility] Disclaimer: The information contained in this section may have been updated after the patient was seen, as this information can be updated by other users. Medical History COPD (chronic obstructive pulmonary disease) COPD exacerbation GERD (gastroesophageal reflux disease) Hypothyroidism Osteopenia Social History Smoking Status: Current every day smoker tobacco type: cigarettes packs per day: 1 alcohol intake: never substance use type: denies use current occupational status: retired Travel in the last 8 weeks: None
== END | disposition home or self-care (01) ==
PROVIDERS: PCP Emergency Medicine; Visit Provider Nurse Practitioner Family
DX: M51.14 Intervertebral disc disorders with radiculopathy, thoracic region (principal); M51.16 Intervertebral disc disorders with radiculopathy, lumbar region
CPT/HCPCS: 99212; G0463

== ENCOUNTER → 2022-09-21 08:48 | Outpatient (POV) | payer MEDICAID, SELFPAY ==
[2022-09-21 09:04] VITALS: BP 120/78; PULSE 78; RESP 18; O2SAT 93; BMI 25.4
--- NOTE | 2022-09-21 09:06 | EXP.PAIN.SOA ---
[facility] Pain Management SOAP Note Subjective:: Patient is a pleasant 62-year-old female who presents today for follow-up and medication refill. We are currently treating the patient for degenerative disc disease of thoracic and lumbar spine with thoracic and lumbar radiculopathy symptoms, mid back pain. Today she rates her pain a 3 out of 10. She denies any new trauma or injury. She states she continues to have low to mid back pain however does good with her current medication. She does state that she had a lotion that we had sent and several months ago and that she would like a refill of this medication if possible. She is currently managed with gabapentin 800 mg 4 times a day and [place] 7.5 mg 5 times a day. Patient denies any side effects from these medications. Her Sky is [phone]. Its been reviewed and appropriate. Review of Systems: General: No recent weight changes, no fever, no sleep disturbances Respiratory: No cough, no shortness of air, no recurring pulmonary infections Cardiovascular/peripheral vascular: No chest pain, no palpitations, no edema, no shortness of breath Gastrointestinal: No new onset incontinence, normal bowel movements reported Genitourinary: No new onset incontinence Musculoskeletal: Low back pain Psychiatric: [Normal mood/affect] Neurological: [Denies weakness in extremities], [denies balance issues] Objective:: Physical Exam: General: Alert and oriented x3, no acute distress, pleasant and cooperative Lungs: Respirations even and unlabored, symmetrical chest expansion Eyes: PERRL Musculoskeletal: Flexion and extension of lumbar [spine] somewhat guarded secondary to pain, [antalgic gait noted] Neurological: Speech clear, no gross sensory deficit Assessment:: Degenerative disc disease of thoracic and lumbar spine with thoracic and lumbar radiculopathy symptoms, low back pain, mid back pain Plan:: Patient continues to do well with her medications. I will refill her gabapentin 800 mg 4 times a day and [place] 7.5 mg 5 times a day and provide a 1 month supply of this medication. I will also send in a prescription of diclofenac topical. Patient will return to clinic in 1 month for reevaluation of symptoms and plan of care. Patient has been advised of risks of oversedation with the prescribed medication. Narcan has been offered to the patient in the event of oversedation. Patient has been advised that a family member should also be educated regarding administration of Narcan. Patient has been instructed to contact the clinic with any concerns before the next appointment. Dr. Watson has reviewed this note and agrees with this plan of care. This note was dictated using voice recognition software and make contain errors or omissions. [facility] Disclaimer: The information contained in this section may have been updated after the patient was seen, as this information can be updated by other users. Medical History COPD (chronic obstructive pulmonary disease) COPD exacerbation GERD (gastroesophageal reflux disease) Hypothyroidism Osteopenia Social History Smoking Status: Current every day smoker tobacco type: cigarettes packs per day: 1 alcohol intake: never substance use type: denies use current occupational status: retired Travel in the last 8 weeks: None
== END | disposition home or self-care (01) ==
PROVIDERS: PCP Emergency Medicine; Visit Provider Nurse Practitioner Family
DX: M51.14 Intervertebral disc disorders with radiculopathy, thoracic region (principal); M51.16 Intervertebral disc disorders with radiculopathy, lumbar region
CPT/HCPCS: 99212; G0463

== ENCOUNTER → 2022-10-20 12:38 | Outpatient (POV) | payer MEDICAID, SELFPAY ==
--- NOTE | 2022-10-20 13:35 | A.OFFVIS_ITS ---
[facility] Pain Management SOAP Note Subjective:: This patient is a very pleasant 62-year-old female comes our clinic today for medication refill and follow-up. We currently manage her with gabapentin 800 mg 1 p.o. 4 times daily and [place] 7.5 mg 1 p.o. 5 times daily. Patient's Sky #[id number] has been reviewed and appropriate. Patient does not complain of any side effects or complications with the current medical management. We have been treating her for quite some time for lumbar back pain secondary to degenerative disc disease as well as lumbar radiculopathy. Also, thoracic disc disease with thoracic radiculopathy at times. She rates her pain today /. Objective:: Patient is awake alert [place] x3. In no acute distress. Flexion-extension lumbar spine somewhat guarded secondary to pain. Deep tendon reflexes upper lower extremities normal. Motor strength upper and lower extremities normal. There is no gross sensory deficit. Gait is normal. Assessment:: Degenerative disc disease thoracic spine. Thoracic radiculopathy. Degenerative disc disease lumbar spine with lumbar radiculopathy. Lumbar spondylosis. Multilevel lumbar facet arthropathy Plan:: We will refill the patient's pain medication. [place] 7.5 mg 1 p.o. 5 times daily. Also gabapentin 800 mg 1 p.o. 4 times daily. She will return in 1 month. [facility] Disclaimer: The information contained in this section may have been updated after the patient was seen, as this information can be updated by other users. Medical History COPD (chronic obstructive pulmonary disease) COPD exacerbation DDD (degenerative disc disease), lumbar GERD (gastroesophageal reflux disease) HLD (hyperlipidemia) Hypothyroidism Osteopenia Vitamin D deficiency Social History Smoking Status: Current every day smoker tobacco type: cigarettes packs per day: 1 alcohol intake: never substance use type: denies use current occupational status: retired Travel in the last 8 weeks: None
[2022-10-20 13:46] VITALS: BP 121/56; PULSE 68; RESP 18; O2SAT 92; BMI 26.4
== END | disposition home or self-care (01) ==
PROVIDERS: PCP Emergency Medicine; Visit Provider Nurse Practitioner Family
DX: M51.14 Intervertebral disc disorders with radiculopathy, thoracic region (principal); M51.16 Intervertebral disc disorders with radiculopathy, lumbar region; M47.26 Other spondylosis with radiculopathy, lumbar region
CPT/HCPCS: 99212; G0463

== ENCOUNTER → 2022-11-20 09:18 | Outpatient (POV) | payer MEDICAID, SELFPAY ==
[2022-11-20 09:45] VITALS: BP 125/71; PULSE 75; RESP 20; BMI 25.8
--- NOTE | 2022-11-20 10:58 | A.OFFVIS_ITS ---
[facility] Pain Management SOAP Note Subjective:: This patient is a very pleasant 62-year-old female that comes our clinic today for follow-up visit for medication refills. We are currently managing the patient with oral medications. Patient reports medications are doing very well in terms of keeping her pain at a minimum. She is currently taking gabapentin 800 mg 1 p.o. 4 times daily. [place] 7.5 mg 1 p.o. 5 times daily. Patient's Sky #[id number] has been reviewed and appropriate. Patient does not complain of any side effects or complications with the current medication management. We have been treating her for quite some time for her low back pain as well as bilateral hip and leg radicular symptoms secondary to degenerative disc disease lumbar spine. Also, thoracic disc disease with thoracic radicular symptoms at times. I discussed in detail with the patient regarding potential for lumbar medial branch block. She describes pain when standing and/or sitting for into the time is difficult. She has difficulty with flexion, extension, left and right rotation. Patient will consider. Objective:: Patient is awake alert [place] x3. In no acute distress. Flexion-extension lumbar spine somewhat guarded secondary to pain. Deep tendon reflexes upper and lower extremities normal. Motor strength upper and lower extremities normal. There is no gross sensory deficit. Gait is normal. Assessment:: Degenerative disc lumbar spine multilevels. Lumbar radiculopathy. Degenerative disc thoracic spine thoracic radiculopathy Plan:: We will refill the patient's pain medication. [place] 7.5 mg 1 p.o. 5 times daily. Gabapentin 800 mg 1 p.o. 4 times daily. She will return to see us in 1 month [facility] Disclaimer: The information contained in this section may have been updated after the patient was seen, as this information can be updated by other users. Medical History COPD (chronic obstructive pulmonary disease) COPD exacerbation DDD (degenerative disc disease), lumbar GERD (gastroesophageal reflux disease) HLD (hyperlipidemia) Hypothyroidism Osteopenia Vitamin D deficiency Social History Smoking Status: Current every day smoker tobacco type: cigarettes packs per day: 1 alcohol intake: never substance use type: denies use current occupational status: other Travel in the last 8 weeks: None
== END | disposition home or self-care (01) ==
PROVIDERS: PCP Emergency Medicine; Visit Provider Nurse Anesthetist, Certified Registered
DX: M51.16 Intervertebral disc disorders with radiculopathy, lumbar region (principal); M51.14 Intervertebral disc disorders with radiculopathy, thoracic region
CPT/HCPCS: 99212; G0463

== ENCOUNTER → 2022-11-20 10:03 | Outpatient (CLI) | payer MEDICAID, SELFPAY ==
[2022-11-20 14:29] LABS: Benzodiazepines Screen,Urine Negative ng/ml (<200)
[2022-11-20 14:30] LABS: Amphetamine/Metha Screen,Urine Negative ng/ml (<1000); Barbiturates Screen,Urine Negative ng/ml (<200)
[2022-11-20 14:31] LABS: Cannabinoid Screen,Urine Negative ng/ml (<50)
[2022-11-20 14:32] LABS: Cocaine Screen,Urine Negative ng/ml (<300); Methadone Screen,Urine Negative ng/ml (<300)
[2022-11-20 14:33] LABS: Opiate Screen,Urine Positive ng/ml (<300)
[2022-11-20 14:34] LABS: Phencyclidine Screen,Urine Negative ng/ml (<25)
[2022-11-25 15:35] LABS: Codeine Negative (Cutoff=100); Hydrocodone Positive (.); Hydromorphone Positive (.); Morphine Negative (Cutoff=100); Opiates Positive (.)
== END ==
PROVIDERS: PCP Emergency Medicine; Visit Provider Nurse Practitioner Family
DX: Z79.891 Long term (current) use of opiate analgesic (principal)
CPT/HCPCS: 80305; 80361; 80365; G0480

== ENCOUNTER → 2022-12-21 09:56 | Outpatient (POV) | payer MEDICAID, SELFPAY ==
--- NOTE | 2022-12-21 10:04 | A.OFFVIS_ITS ---
[facility] Pain Management SOAP Note Subjective:: Patient is a pleasant 62-year-old female who presents today for medication refill. We are currently treating the patient for degenerative disc disease of thoracic and lumbar spine with thoracic and lumbar radiculopathy symptoms, mid back pain. Today she rates her pain a 4 out of 10. She denies any new trauma or injury. She is currently managed with gabapentin 800 mg 4 times a day and [employer] 7.5 mg 5 times a day. Patient denies any side effects from these medications. She is requesting a refill at today's visit. Her Sky has been reviewed and appropriate. MME of 75 Review of Systems: General: No recent weight changes, no fever, no sleep disturbances Respiratory: No cough, no shortness of air, no recurring pulmonary infections Cardiovascular/peripheral vascular: No chest pain, no palpitations, no edema, no shortness of breath Gastrointestinal: No new onset incontinence, normal bowel movements reported Genitourinary: No new onset incontinence Musculoskeletal: Low back pain Psychiatric: [Normal mood/affect] Neurological: [Denies weakness in extremities], [denies balance issues] Objective:: Physical Exam: General: Alert and oriented x3, no acute distress, pleasant and cooperative Lungs: Respirations even and unlabored, symmetrical chest expansion Eyes: PERRL Musculoskeletal: Flexion and extension of lumbar [spine] somewhat guarded secondary to pain, [antalgic gait noted] Neurological: Speech clear, no gross sensory deficit Assessment:: Degenerative disc disease of thoracic and lumbar spine with thoracic and lumbar radiculopathy symptoms, low back pain, mid back pain Plan:: I will refill the patient's [employer] 7.5 mg 5 times a day and gabapentin 800 mg 4 times a day and provide a 1 month supply of these medications. Patient will return to clinic in 1 month for reevaluation of symptoms and medication refill. Patient has been advised of risks of oversedation with the prescribed medication. Narcan has been offered to the patient in the event of oversedation. Patient has been advised that a family member should also be educated regarding administration of Narcan. Patient has been instructed to contact the clinic with any concerns before the next appointment. Dr. Watson has reviewed this note and agrees with this plan of care. This note was dictated using voice recognition software and make contain errors or omissions. [facility] Disclaimer: The information contained in this section may have been updated after the patient was seen, as this information can be updated by other users. Medical History COPD (chronic obstructive pulmonary disease) COPD exacerbation DDD (degenerative disc disease), lumbar GERD (gastroesophageal reflux disease) HLD (hyperlipidemia) Hypothyroidism Osteopenia Vitamin D deficiency Social History Smoking Status: Current every day smoker tobacco type: cigarettes packs per day: 1 alcohol intake: never substance use type: denies use current occupational status: other Travel in the last 8 weeks: None
[2022-12-21 12:36] VITALS: BP 144/84; PULSE 99; RESP 18; O2SAT 90; BMI 25.0
== END | disposition home or self-care (01) ==
PROVIDERS: PCP Emergency Medicine; Visit Provider Nurse Practitioner Family
DX: M51.14 Intervertebral disc disorders with radiculopathy, thoracic region (principal); M51.16 Intervertebral disc disorders with radiculopathy, lumbar region
CPT/HCPCS: 99212; G0463

== ENCOUNTER → 2023-01-17 10:01 | Outpatient (POV) | payer MEDICAID, SELFPAY ==
--- NOTE | 2023-01-17 10:17 | A.OFFVIS_ITS ---
[facility] Pain Management SOAP Note Subjective:: Patient is a pleasant 62-year-old female who presents today for medication refill and follow-up. We are currently treating the patient for degenerative disc disease of thoracic and lumbar spine with thoracic and lumbar radiculopathy symptoms, mid back pain. Today she rates her pain a 4 out of 10. Patient states she continues to do well with her current medications. Patient has not had any additional changes since her last visit. Patient is currently managed with gabapentin 800 mg 4 times a day and [place] 7.5 mg 5 times a day. She denies any side effects from this medication. Her Sky has been reviewed and is appropriate. Review of Systems: General: No recent weight changes, no fever, no sleep disturbances Respiratory: No cough, no shortness of air, no recurring pulmonary infections Cardiovascular/peripheral vascular: No chest pain, no palpitations, no edema, no shortness of breath Gastrointestinal: No new onset incontinence, normal bowel movements reported Genitourinary: No new onset incontinence Musculoskeletal: Low back pain Psychiatric: [Normal mood/affect] Neurological: [Denies weakness in extremities], [denies balance issues] Objective:: Physical Exam: General: Alert and oriented x3, no acute distress, pleasant and cooperative Lungs: Respirations even and unlabored, symmetrical chest expansion Eyes: PERRL Musculoskeletal: Flexion and extension of lumbar [spine] somewhat guarded secondary to pain, [antalgic gait noted] Neurological: Speech clear, no gross sensory deficit Assessment:: Degenerative disc disease of lumbar and thoracic spine with lumbar and thoracic radiculopathy symptoms, mid back pain Plan:: We will refill the patient's [place] 7.5 mg 5 times a day and gabapentin 800 mg 4 times a day and provide a 1 month supply of these medications. Patient will return to clinic in 1 month for reevaluation of symptoms and medication refill. Patient has been advised of risks of oversedation with the prescribed medication. Narcan has been offered to the patient in the event of oversedation. Patient has been advised that a family member should also be educated regarding administration of Narcan. Patient has been instructed to contact the clinic with any concerns before the next appointment. Dr. Watson has reviewed this note and agrees with this plan of care. This note was dictated using voice recognition software and make contain errors or omissions. [facility] Disclaimer: The information contained in this section may have been updated after the patient was seen, as this information can be updated by other users. Medical History COPD (chronic obstructive pulmonary disease) COPD exacerbation DDD (degenerative disc disease), lumbar GERD (gastroesophageal reflux disease) HLD (hyperlipidemia) Hypothyroidism Osteopenia Vitamin D deficiency Social History Smoking Status: Current every day smoker tobacco type: cigarettes packs per day: 1 alcohol intake: never substance use type: denies use current occupational status: other Travel in the last 8 weeks: None
[2023-01-17 10:31] VITALS: BP 133/72; PULSE 67; RESP 18; O2SAT 92; BMI 25.8
== END | disposition home or self-care (01) ==
PROVIDERS: PCP Emergency Medicine; Visit Provider Nurse Practitioner Family
DX: M51.14 Intervertebral disc disorders with radiculopathy, thoracic region (principal); M51.16 Intervertebral disc disorders with radiculopathy, lumbar region
CPT/HCPCS: 99212; G0463

== ENCOUNTER 2023-02-15 09:25 | Outpatient (CLI) | payer MEDICAID, SELFPAY ==
[2023-02-15 19:52] LABS: Basophils # 0.1 K/mm3 (0-0.2); Basophils % 0.9 % (0.1-2.0); Eosinophils # 0.1 K/mm3 (0.0-0.4); Hematocrit 48.6 % (37.0-47.0); Hemoglobin 15.9 g/dL (12.2-16.2); Lymphocytes # 3.7 K/mm3 (0.7-4.5); Lymphocytes % 43.1 % (10-50); Mean Corpuscular HGB Conc 32.6 g/dL (31.8-35.4); Mean Corpuscular Hemoglobin 32.4 pg (27.0-31.2); Mean Corpuscular Volume 99.5 fl (81-99); Mean Platelet Volume 9.7 fl (7.4-10.4); Monocytes # 0.5 K/mm3 (0.1-1.0); Monocytes % 5.3 % (1.7-9.3); Neutrophils # 4.3 K/mm3 (1.8-7.8); Neutrophils % 49.7 % (37.0-80.0); Platelet Count 235 K/mm3 (142-424); Red Blood Count 4.89 M/mm3 (4.20-5.40); Red Cell Distribution Width 13.3 % (11.5-17.5); White Blood Count 8.6 K/mm3 (4.8-10.8)
[2023-02-15 19:58] LABS: Alanine Aminotransferase 13 U/L (12-78); Albumin/Globulin Ratio 1.4 (1.1-1.8); Alkaline Phosphatase 152 U/L (38-126); Anion Gap 6.5 mEq/L (5-15); Aspartate Amino Transferase 24 U/L (14-36); Bilirubin,Total 0.4 mg/dl (0.2-1.3); Blood Urea Nitrogen 9 mg/dl (7-17); Calcium 8.9 mg/dl (8.4-10.2); Carbon Dioxide 31 mmol/L (22.0-30.0); Chloride 103 mmol/L (98-107); Chol/HDL Ratio 4.6 (1-3.5); Cholesterol 209 mg/dl (140-200); Estimated Glomerular Filt Rate 73 ml/min (>60); GFR (African American) 88 ML/MIN (>60); Globulin 2.8 g/dL (1.3-3.2); Glucose 102 mg/dl (74-100); HDL Cholesterol 45 mg/dl (40-60); Potassium 4.5 mmoL/L (3.5-5.1); Sodium 136 mmol/L (136-145); Total Protein,Serum 6.8 g/dl (6.3-8.2); Triglycerides 169 mg/dl (30-150); VLDL Cholesterol 34 mg/dL (0-40)
[2023-02-15 20:09] LABS: Direct LDL Cholesterol 110.15 mg/dL (100-129)
[2023-02-15 20:16] LABS: 25-OH Vitamin D, Total 61.6 ng/mL (30-100)
[2023-02-15 20:31] LABS: Thyroid Stimulating Hormone 5.37 uIU/mL (0.465-4.68)
[2023-02-15 20:51] LABS: Vitamin B12 299 pg/mL (239-931)
== END 2023-02-15 23:59 ==
LOC: LAB.DROPOF 02-16 11:08
PROVIDERS: PCP Physician Assistant; Visit Provider Physician Assistant
DX: E03.9 Hypothyroidism, unspecified (principal); E55.9 Vitamin D deficiency, unspecified; E78.5 Hyperlipidemia, unspecified
CPT/HCPCS: 80053; 80061; 82306; 82607; 83970; 84443; 85025

== ENCOUNTER 2023-02-16 08:24 | Outpatient (CLI) | payer MEDICAID, SELFPAY | END 2023-02-16 23:59 | LOC: LAB.DROPOF 02-19 08:25 | PROVIDERS: PCP Physician Assistant; Visit Provider Physician Assistant | DX: R74.8 Abnormal levels of other serum enzymes (principal) | CPT/HCPCS: 83970 ==

== ENCOUNTER → 2023-02-19 13:48 | Outpatient (POV) | payer MEDICAID, SELFPAY ==
--- NOTE | 2023-02-19 14:18 | EXP.PAIN.SOA ---
[facility] Pain Management SOAP Note Subjective:: Patient is a pleasant 63-year-old female who presents today for medication refill. We are currently treating the patient for degenerative disc disease of thoracic and lumbar spine with thoracic and lumbar radiculopathy symptoms, mid back pain. Today she rates her pain a 5 out of 10. Patient denies any new trauma or injury. She does state from her last visit that her boyfriend of 38 years was diagnosed with cancer and that she has had a very exhausting last month just dealing with grandkids and having him come back home from the hospital. She is currently managed with gabapentin 800 mg 4 times a day and [place] 7.5 mg 5 times a day. She denies any side effects from this medication. Her Sky has been reviewed and is appropriate. Review of Systems: General: No recent weight changes, no fever, no sleep disturbances Respiratory: No cough, no shortness of air, no recurring pulmonary infections Cardiovascular/peripheral vascular: No chest pain, no palpitations, no edema, no shortness of breath Gastrointestinal: No new onset incontinence, normal bowel movements reported Genitourinary: No new onset incontinence Musculoskeletal: Low back pain Psychiatric: [Normal mood/affect] Neurological: [Denies weakness in extremities], [denies balance issues] Objective:: Physical Exam: General: Alert and oriented x3, no acute distress, pleasant and cooperative Lungs: Respirations even and unlabored, symmetrical chest expansion Eyes: PERRL Musculoskeletal: Flexion and extension of lumbar [spine] somewhat guarded secondary to pain, [antalgic gait noted] Neurological: Speech clear, no gross sensory deficit Assessment:: Degenerative disc disease of thoracic and lumbar spine with thoracic and lumbar radiculopathy symptoms, mid back pain Plan:: I will refill the patient's gabapentin 800 mg 4 times a day and [place] 7.5 mg 5 times a day and provide a 1 month supply of these medications. Patient will return to clinic in 1 month for reevaluation of symptoms and plan of care. Patient has been advised of risks of oversedation with the prescribed medication. Narcan has been offered to the patient in the event of oversedation. Patient has been advised that a family member should also be educated regarding administration of Narcan. Patient has been instructed to contact the clinic with any concerns before the next appointment. Dr. Watson has reviewed this note and agrees with this plan of care. This note was dictated using voice recognition software and make contain errors or omissions. [facility] Disclaimer: The information contained in this section may have been updated after the patient was seen, as this information can be updated by other users. Medical History (Updated 02/15/23 @ 12:29 by JI Barrientos) COPD (chronic obstructive pulmonary disease) COPD exacerbation DDD (degenerative disc disease), lumbar GERD (gastroesophageal reflux disease) HLD (hyperlipidemia) Hypothyroidism Osteopenia Vitamin D deficiency Social History Smoking Status: Current every day smoker tobacco type: cigarettes packs per day: 1 alcohol intake: never substance use type: denies use current occupational status: other Travel in the last 8 weeks: None
[2023-02-19 14:24] VITALS: BP 128/56; PULSE 78; RESP 20; O2SAT 90; BMI 25.3
== END | disposition home or self-care (01) ==
PROVIDERS: PCP Internal Medicine; Visit Provider Nurse Practitioner Family
DX: M51.14 Intervertebral disc disorders with radiculopathy, thoracic region (principal); M51.16 Intervertebral disc disorders with radiculopathy, lumbar region
CPT/HCPCS: 99212; G0463

== ENCOUNTER 2023-03-20 08:52 | Outpatient (CLI) | payer MEDICAID, SELFPAY ==
--- NOTE | 2023-03-20 08:52 | XR_ITS ---
FINAL REPORT CLINICAL HISTORY: postmenopausal COMPARISON: 05/25/2021 FINDINGS: Using L1-4, the bone mineral density of the spine is 0.986 g/cm2, corresponding to T-score of -0.6 which is within the normal range. Using the left hip, the bone mineral density of the femoral neck is 0.668 g/cm2, corresponding to a T-score of -1.6 which is within the low bone density range. Using the right hip: the bone mineral density of the femoral neck is 0.691 g/cm2, corresponding to a T-score of 1-1.4 which is within the low bone density range. FRAX 10 year fracture risk is 9% for a hip fracture and 1.5% for a major osteoporotic fracture. IMPRESSION: Normal bone mineral density of the lumbar spine. Low bone density of the right and left hips. NOTE: T-score: Standard deviation compared with peak bone mass of young adult mean. *Following the recommendations of the International Society of Bone densitometry, classification of hip BMD is based on the lower of two T-scores; total hip or femoral neck. Reviewed, Interpreted and Dictated by Flako Esparza III, MD Transcribed by Cinthya Vivas Authenticated and [facility]
== END 2023-03-20 23:59 ==
LOC: RAD 08:52
PROVIDERS: PCP Physician Assistant; Visit Provider Physician Assistant
DX: Z78.0 Asymptomatic menopausal state (principal)
CPT/HCPCS: 77080

== ENCOUNTER → 2023-03-22 14:02 | Outpatient (POV) | payer MEDICAID, SELFPAY ==
--- NOTE | 2023-03-22 14:35 | A.OFFVIS_ITS ---
[facility] Pain Management SOAP Note Subjective:: Patient is a pleasant 63-year-old female who presents today for 1 month follow- up and medication refill. We are currently treating the patient for degenerative disc disease of thoracic and lumbar spine with thoracic and lumbar radiculopathy symptoms, mid back pain. Today she rates her pain a 4 out of 10. Patient denies any new trauma or injury. She does state that she is continuing to deal with her boyfriend's cancer diagnosis and that he has been experience increased heart rate. Patient states they are going for second opinion at [facility]. Patient is currently managed with gabapentin 800 mg 4 times a day and [place] 7.5 mg 5 times a day. She denies any side effects from this medication. Her Sky has been reviewed and is appropriate. Review of Systems: General: No recent weight changes, no fever, no sleep disturbances Respiratory: No cough, no shortness of air, no recurring pulmonary infections Cardiovascular/peripheral vascular: No chest pain, no palpitations, no edema, no shortness of breath Gastrointestinal: No new onset incontinence, normal bowel movements reported Genitourinary: No new onset incontinence Musculoskeletal: Low back pain Psychiatric: [Normal mood/affect] Neurological: [Denies weakness in extremities], [denies balance issues] Objective:: Physical Exam: General: Alert and oriented x3, no acute distress, pleasant and cooperative Lungs: Respirations even and unlabored, symmetrical chest expansion Eyes: PERRL Musculoskeletal: Flexion and extension of lumbar [spine] somewhat guarded secondary to pain, [antalgic gait noted] Neurological: Speech clear, no gross sensory deficit Assessment:: Degenerative disc disease of thoracic and lumbar spine with thoracic and lumbar radiculopathy symptoms, mid back pain Plan:: I will refill the patient's gabapentin 800 mg 4 times a day and [place] 7.5 mg 5 times a day and provide a 1 month supply of this medication. Patient will return to clinic in 1 month for reevaluation of symptoms and plan of care. Risks and benefits of the medication have been explained in detail to the patient. The patient does understand the risk of dependence on the medication when given over a prolonged period. Patient has been advised of risks of oversedation with the prescribed medication. Narcan has been offered to the paitent in the event of oversedation. Patient has been advised that a family member should also be educated regarding administration of Narcan. The patient has been advised to consult with his/her primary care provider and pharmacist regarding drug-drug interaction of medications currently prescribed. Patient has been prescribed a controlled substance after being counseled on the medication, medication safety, and possible side effects. Opioid contract was reviewed and signed by the patient, and that they have agreed to all of the terms set forth by our compliance program. Patient has been instructed to contact the clinic with any concerns before the next appointment. Dr. Watson has reviewed this note and agrees with this plan of care. This note was dictated using voice recognition software and make contain errors or omissions. [facility] Disclaimer: The information contained in this section may have been updated after the patient was seen, as this information can be updated by other users. Medical History (Updated 02/15/23 @ 12:29 by JI Barrientos) COPD (chronic obstructive pulmonary disease) COPD exacerbation DDD (degenerative disc disease), lumbar GERD (gastroesophageal reflux disease) HLD (hyperlipidemia) Hypothyroidism Osteopenia Vitamin D deficiency Social History Smoking Status: Current every day smoker tobacco type: cigarettes packs per day: 1 alcohol intake: never substance use type: denies use current occupational status: other Travel in the last 8 weeks: None
[2023-03-22 14:45] VITALS: BP 106/59; PULSE 68; RESP 18; O2SAT 90; BMI 26.1
== END | disposition home or self-care (01) ==
PROVIDERS: PCP Internal Medicine; Visit Provider Nurse Practitioner Family
DX: M51.14 Intervertebral disc disorders with radiculopathy, thoracic region (principal); M51.16 Intervertebral disc disorders with radiculopathy, lumbar region
CPT/HCPCS: 99212; G0463

== ENCOUNTER 2023-03-22 14:42 | Outpatient (CLI) | payer MEDICAID, SELFPAY ==
[2023-03-22 16:44] LABS: Barbiturates Screen,Urine Negative ng/ml (<200)
[2023-03-22 16:47] LABS: Phencyclidine Screen,Urine Negative ng/ml (<25)
[2023-03-22 17:20] LABS: Benzodiazepines Screen,Urine Negative ng/ml (<200)
[2023-03-22 17:25] LABS: Opiate Screen,Urine Positive ng/ml (<300)
[2023-03-22 18:20] LABS: Cannabinoid Screen,Urine Negative ng/ml (<50)
[2023-03-22 18:21] LABS: Cocaine Screen,Urine Negative ng/ml (<300)
[2023-03-22 18:22] LABS: Methadone Screen,Urine Negative ng/ml (<300)
[2023-03-22 18:40] LABS: Amphetamine/Metha Screen,Urine Negative ng/ml (<1000)
[2023-03-27 11:24] LABS: Codeine Negative (Cutoff=100); Hydrocodone Positive (.); Hydromorphone Positive (.); Morphine Negative (Cutoff=100); Opiates Positive (.); Oxymorphone (GC/MS) 208 ng/mL (Cutoff=100)
== END 2023-03-22 23:59 ==
LOC: LAB 14:43
PROVIDERS: Nurse Practitioner Family; PCP Internal Medicine; Visit Provider Anesthesiology
DX: Z79.891 Long term (current) use of opiate analgesic (principal)
CPT/HCPCS: 80307; 80361; 80365; G0480

== ENCOUNTER → 2023-04-19 11:22 | Outpatient (POV) | payer MEDICAID, SELFPAY ==
[2023-04-19 11:33] VITALS: BP 106/60; PULSE 78; RESP 20; BMI 25.7
--- NOTE | 2023-04-19 11:42 | EXP.PAIN.SOA ---
[facility] Pain Management SOAP Note Subjective:: Patient is a pleasant 63-year-old female who presents today for medication refill. We are currently treating the patient for degenerative disc disease of thoracic and lumbar spine with thoracic and lumbar radiculopathy symptoms, mid back pain. Today she rates her pain a 4 out of 10. Patient does state that she did just have some left lower leg itching starts right below her knee. Patient states that when she looked at it she did have a well up that had a blister around it and does think that it may be shingles again. Patient denies any other areas of rash. She is currently managed with [place] 7.5 mg 5 times a day and gabapentin 800 mg 4 times a day. She denies any side effects from this medication. Her Sky has been reviewed. Review of Systems: General: No recent weight changes, no fever, no sleep disturbances Respiratory: No cough, no shortness of air, no recurring pulmonary infections Cardiovascular/peripheral vascular: No chest pain, no palpitations, no edema, no shortness of breath Gastrointestinal: No new onset incontinence, normal bowel movements reported Genitourinary: No new onset incontinence Musculoskeletal: Low back pain, right leg pain Psychiatric: [Normal mood/affect] Neurological: [Denies weakness in extremities], [denies balance issues] Objective:: Physical Exam: General: Alert and oriented x3, no acute distress, pleasant and cooperative Lungs: Respirations even and unlabored, symmetrical chest expansion Eyes: PERRL Musculoskeletal: Flexion and extension of lumbar [spine] somewhat guarded secondary to pain, [antalgic gait noted] Neurological: Speech clear, no gross sensory deficit Assessment:: Degenerative disc disease of thoracic and lumbar spine with thoracic and lumbar radiculopathy symptoms, mid back pain Plan:: I have discussed with the patient on her last urinalysis that she did have inconsistent findings with additional pain medications. Patient denies having taken any other medications. I have counseled the patient that for future we will continue to monitor this and if there are additional and discrepancies that we will have to discuss her current medication regimen and make changes. At this time we will refill her gabapentin 800 mg 4 times a day and [place] 7.5 mg 5 times a day and provide a pain 1 month supply of this medication. I have counseled the patient to continue to keep us updated on her right lower leg symptoms. Patient did have 1 wheal area noted on her lower left leg with an induration in the center. It was approximately 3 to 4 mm in size. Patient will return to clinic in 1 month for reevaluation of symptoms and plan of care. Risks and benefits of the medication have been explained in detail to the patient. The patient does understand the risk of dependence on the medication when given over a prolonged period. Patient has been advised of risks of oversedation with the prescribed medication. Narcan has been offered to the paitent in the event of oversedation. Patient has been advised that a family member should also be educated regarding administration of Narcan. The patient has been advised to consult with his/her primary care provider and pharmacist regarding drug-drug interaction of medications currently prescribed. Patient has been prescribed a controlled substance after being counseled on the medication, medication safety, and possible side effects. Opioid contract was reviewed and signed by the patient, and that they have agreed to all of the terms set forth by our compliance program. Patient has been instructed to contact the clinic with any concerns before the next appointment. Dr. Watson has reviewed this note and agrees with this plan of care. This note was dictated using voice recognition software and make contain errors or omissions. [facility] Disclaimer: The information contained in this section may have been updated after the patient was seen, as this information can be updated by other users. Medical History (Updated 02/15/23 @ 12:29 by JI Barrientos) DDD (degenerative disc disease), lumbar Vitamin D deficiency HLD (hyperlipidemia) Osteopenia COPD exacerbation COPD (chronic obstructive pulmonary disease) GERD (gastroesophageal reflux disease) Hypothyroidism Social History Smoking Status: Current every day smoker tobacco type: cigarettes packs per day: 1 alcohol intake: never substance use type: denies use current occupational status: other Travel in the last 8 weeks: None
== END | disposition home or self-care (01) ==
PROVIDERS: PCP Internal Medicine; Visit Provider Nurse Practitioner Family
DX: M51.14 Intervertebral disc disorders with radiculopathy, thoracic region (principal); M51.16 Intervertebral disc disorders with radiculopathy, lumbar region
CPT/HCPCS: 99212; G0463

== ENCOUNTER 2023-05-21 09:46 | Outpatient (POV) | payer MEDICAID, SELFPAY ==
[2023-05-21 09:52] VITALS: BP 117/60; PULSE 72; RESP 18; O2SAT 94; BMI 25.7
--- NOTE | 2023-05-21 09:58 | A.OFFVIS_ITS ---
[facility] Pain Management SOAP Note Subjective:: Patient is a pleasant 63-year-old female who presents today for medication refill and follow-up. Today she rates her pain a 3 out of 10. Patient denies any new trauma or injury. She does state that she continues to do well with her current medication regimen. Patient does state that she still has a lot of stress on her currently due to her boyfriend's diagnosis of cancer and his related treatment. Patient is currently managed with [place] 7.5 mg 5 times a day and gabapentin 800 mg 4 times a day. She denies any side effects from this medication. Her Sky has been reviewed and is appropriate. Review of Systems: General: No recent weight changes, no fever, no sleep disturbances Respiratory: No cough, no shortness of air, no recurring pulmonary infections Cardiovascular/peripheral vascular: No chest pain, no palpitations, no edema, no shortness of breath Gastrointestinal: No new onset incontinence, normal bowel movements reported Genitourinary: No new onset incontinence Musculoskeletal: Low back pain Psychiatric: [Normal mood/affect] Neurological: [Denies weakness in extremities], [denies balance issues] Objective:: Physical Exam: General: Alert and oriented x3, no acute distress, pleasant and cooperative Lungs: Respirations even and unlabored, symmetrical chest expansion Eyes: PERRL Musculoskeletal: Flexion and extension of lumbar [spine] somewhat guarded secondary to pain, [antalgic gait noted] Neurological: Speech clear, no gross sensory deficit Assessment:: 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 Patient will return to clinic in 1 month for reevaluation of symptoms and plan of care. Risks and benefits of the medication have been explained in detail to the patient. The patient does understand the risk of dependence on the medication when given over a prolonged period. Patient has been advised of risks of oversedation with the prescribed medication. Narcan has been offered to the paitent in the event of oversedation. Patient has been advised that a family member should also be educated regarding administration of Narcan. The patient has been advised to consult with his/her primary care provider and pharmacist regarding drug-drug interaction of medications currently prescribed. Patient has been prescribed a controlled substance after being counseled on the medication, medication safety, and possible side effects. Opioid contract was reviewed and signed by the patient, and that they have agreed to all of the terms set forth by our compliance program. Patient has been instructed to contact the clinic with any concerns before the next appointment. Dr. Watson has reviewed this note and agrees with this plan of care. This note was dictated using voice recognition software and make contain errors or omissions. [facility] Disclaimer: The information contained in this section may have been updated after the patient was seen, as this information can be updated by other users. Medical History DDD (degenerative disc disease), lumbar Vitamin D deficiency HLD (hyperlipidemia) Osteopenia COPD exacerbation COPD (chronic obstructive pulmonary disease) GERD (gastroesophageal reflux disease) Hypothyroidism Social History Smoking Status: Current every day smoker tobacco type: cigarettes packs per day: 1 alcohol intake: never substance use type: denies use current occupational status: unemployed Travel in the last 8 weeks: None
== END 2023-05-21 23:59 | disposition home or self-care (01) ==
PROVIDERS: PCP Internal Medicine; Visit Provider Nurse Practitioner Family
DX: M51.14 Intervertebral disc disorders with radiculopathy, thoracic region (principal); M51.16 Intervertebral disc disorders with radiculopathy, lumbar region
CPT/HCPCS: 99212; G0463

== ENCOUNTER 2023-06-18 09:10 | Outpatient (POV) | payer MEDICAID, SELFPAY ==
[2023-06-18 09:38] VITALS: BP 145/87; PULSE 78; RESP 19; O2SAT 96; BMI 26.6
--- NOTE | 2023-06-18 09:49 | EXP.PAIN.SOA ---
[facility] Pain Management SOAP Note Subjective:: Patient is a pleasant 63-year-old female who presents today for medication refill and 1 month follow-up. Today she rates her pain a 3 out of 10. Patient denies any new trauma or injury. She does state today that her legs are little bit more sore that she had a family gathering over the weekend. Patient does state that her boyfriend has been dealing with the cancer diagnosis is doing well and maintaining currently. Patient is currently managed with [place] 7.5 mg 5 times a day and gabapentin 800 mg 4 times a day. She denies any side effects from this medication. Her Sky has been reviewed and is appropriate. Review of Systems: General: No recent weight changes, no fever, no sleep disturbances Respiratory: No cough, no shortness of air, no recurring pulmonary infections Cardiovascular/peripheral vascular: No chest pain, no palpitations, no edema, no shortness of breath Gastrointestinal: No new onset incontinence, normal bowel movements reported Genitourinary: No new onset incontinence Musculoskeletal: Low back pain Psychiatric: [Normal mood/affect] Neurological: [Denies weakness in extremities], [denies balance issues] Objective:: Physical Exam: General: Alert and oriented x3, no acute distress, pleasant and cooperative Lungs: Respirations even and unlabored, symmetrical chest expansion Eyes: PERRL Musculoskeletal: Flexion and extension of lumbar [spine] somewhat guarded secondary to pain, [antalgic gait noted] Neurological: Speech clear, no gross sensory deficit Assessment:: Degenerative disc disease of lumbar spine with lumbar radiculopathy symptoms Plan:: I will refill the patient's [place] and gabapentin and provide a 1 month supply of this medication. Patient will return to clinic in 1 month for reevaluation of symptoms and plan of care. Risks and benefits of the medication have been explained in detail to the patient. The patient does understand the risk of dependence on the medication when given over a prolonged period. Patient has been advised of risks of oversedation with the prescribed medication. Narcan has been offered to the paitent in the event of oversedation. Patient has been advised that a family member should also be educated regarding administration of Narcan. The patient has been advised to consult with his/her primary care provider and pharmacist regarding drug-drug interaction of medications currently prescribed. Patient has been prescribed a controlled substance after being counseled on the medication, medication safety, and possible side effects. Opioid contract was reviewed and signed by the patient, and that they have agreed to all of the terms set forth by our compliance program. Patient has been instructed to contact the clinic with any concerns before the next appointment. Dr. Watson has reviewed this note and agrees with this plan of care. This note was dictated using voice recognition software and make contain errors or omissions. [facility] Disclaimer: The information contained in this section may have been updated after the patient was seen, as this information can be updated by other users. Medical History DDD (degenerative disc disease), lumbar Vitamin D deficiency HLD (hyperlipidemia) Osteopenia COPD exacerbation COPD (chronic obstructive pulmonary disease) GERD (gastroesophageal reflux disease) Hypothyroidism Social History Smoking Status: Current every day smoker tobacco type: cigarettes packs per day: 1 alcohol intake: never substance use type: denies use current occupational status: unemployed Travel in the last 8 weeks: None
== END 2023-06-18 23:59 | disposition home or self-care (01) ==
PROVIDERS: PCP Internal Medicine; Visit Provider Nurse Practitioner Family
DX: M51.16 Intervertebral disc disorders with radiculopathy, lumbar region (principal)
CPT/HCPCS: 99212; G0463

== ENCOUNTER 2023-07-19 09:44 | Outpatient (POV) | payer MEDICAID, SELFPAY ==
--- NOTE | 2023-07-19 09:49 | A.OFFVIS_ITS ---
[facility] Pain Management SOAP Note Subjective:: Patient is a pleasant 63-year-old female who presents today for medication refill. Today she rates her pain a 3 out of 10. Patient denies any new trauma or injury. She does state that her boyfriend is doing well and that they did think he possibly had the cancer spread to his lungs however he quit to have this biopsied and everything worked out and there was no cancer. She states they are just now dealing with a cancer in his kidney and hoping that everything works well with it. Patient is currently managed with [place] 7.5 mg 5 times a day and gabapentin 800 mg 4 times a day. She denies any side effects from this medication. Her Sky has been reviewed and is appropriate. Review of Systems: General: No recent weight changes, no fever, no sleep disturbances Respiratory: No cough, no shortness of air, no recurring pulmonary infections Cardiovascular/peripheral vascular: No chest pain, no palpitations, no edema, no shortness of breath Gastrointestinal: No new onset incontinence, normal bowel movements reported Genitourinary: No new onset incontinence Musculoskeletal: Low back pain Psychiatric: [Normal mood/affect] Neurological: [Denies weakness in extremities], [denies balance issues] Objective:: Physical Exam: General: Alert and oriented x3, no acute distress, pleasant and cooperative Lungs: Respirations even and unlabored, symmetrical chest expansion Eyes: PERRL Musculoskeletal: Flexion and extension of lumbar [spine] somewhat guarded secondary to pain, [antalgic gait noted] Neurological: Speech clear, no gross sensory deficit Assessment:: Degenerative disc disease of lumbar spine with lumbar radiculopathy symptoms Plan:: I will refill the patient's [place] and gabapentin and provide a 1 month supply of this medication. Patient will return to clinic in 1 month for reevaluation of symptoms and plan of care. Risks and benefits of the medication have been explained in detail to the patient. The patient does understand the risk of dependence on the medication when given over a prolonged period. Patient has been advised of risks of oversedation with the prescribed medication. Narcan has been offered to the paitent in the event of oversedation. Patient has been advised that a family member should also be educated regarding administration of Narcan. The patient has been advised to consult with his/her primary care provider and pharmacist regarding drug-drug interaction of medications currently prescribed. Patient has been prescribed a controlled substance after being counseled on the medication, medication safety, and possible side effects. Opioid contract was reviewed and signed by the patient, and that they have agreed to all of the terms set forth by our compliance program. Patient has been instructed to contact the clinic with any concerns before the next appointment. Dr. Watson has reviewed this note and agrees with this plan of care. This note was dictated using voice recognition software and make contain errors or omissions. [facility] Disclaimer: The information contained in this section may have been updated after the patient was seen, as this information can be updated by other users. Medical History DDD (degenerative disc disease), lumbar Vitamin D deficiency HLD (hyperlipidemia) Osteopenia COPD exacerbation COPD (chronic obstructive pulmonary disease) GERD (gastroesophageal reflux disease) Hypothyroidism Social History Smoking Status: Current every day smoker tobacco type: cigarettes packs per day: 1 alcohol intake: never substance use type: denies use current occupational status: unemployed Travel in the last 8 weeks: None
[2023-07-19 09:54] VITALS: BP 115/51; PULSE 63; RESP 16; O2SAT 95; BMI 25.0
== END 2023-07-19 23:59 | disposition home or self-care (01) ==
PROVIDERS: PCP Physician Assistant; Visit Provider Nurse Practitioner Family
DX: M51.16 Intervertebral disc disorders with radiculopathy, lumbar region (principal)
CPT/HCPCS: 99212; G0463

== ENCOUNTER 2023-08-23 09:29 | Outpatient (POV) | payer MEDICAID, SELFPAY ==
[2023-08-23 09:47] VITALS: BP 133/67; PULSE 55; RESP 18; O2SAT 94; BMI 25.0
--- NOTE | 2023-08-23 10:04 | A.OFFVIS_ITS ---
[facility] Disclaimer: The information contained in this section may have been updated after the patient was seen, as this information can be updated by other users. Medical History DDD (degenerative disc disease), lumbar Vitamin D deficiency HLD (hyperlipidemia) Osteopenia COPD exacerbation COPD (chronic obstructive pulmonary disease) GERD (gastroesophageal reflux disease) Hypothyroidism Social History Smoking Status: Current every day smoker tobacco type: cigarettes packs per day: 1 alcohol intake: never substance use type: denies use current occupational status: retired Travel in the last 8 weeks: None PM Subjective & Objective Subjective Subjective:: Patient is a pleasant 63-year-old female who presents today for medication refill and follow-up. Today she rates her pain a 4 out of 10. Patient denies any new trauma or injury. She does state that she is still dealing with her boyfriend's cancer and that he has been doing chemo and that just not doing as well. Patient states they are seeing and hoping for better knees in future. Patient is currently managed with [place] 7.5mg 5 times a day and gabapentin 800 mg 4 times a day. She denies any side effects from this medication. Her Sky has been reviewed and is appropriate. Review of Systems: General: No recent weight changes, no fever, no sleep disturbances Respiratory: No cough, no shortness of air, no recurring pulmonary infections Cardiovascular/peripheral vascular: No chest pain, no palpitations, no edema, no shortness of breath Gastrointestinal: No new onset incontinence, normal bowel movements reported Genitourinary: No new onset incontinence Musculoskeletal: Low back pain Psychiatric: [Normal mood/affect] Neurological: [Denies weakness in extremities], [denies balance issues] Pain at rest (0-10 scale): 4 Objective Objective:: Physical Exam: General: Alert and oriented x3, no acute distress, pleasant and cooperative Lungs: Respirations even and unlabored, symmetrical chest expansion Eyes: PERRL Musculoskeletal: Flexion and extension of lumbar [spine] somewhat guarded secondary to pain, [antalgic gait noted] Neurological: Speech clear, no gross sensory deficit Has patient had previous pain injection?: No Conservative treatment options previously tried: Home exercise plan Length of treatment: Longer than 6 weeks and Prescription medications Length of treatment: Longer than 6 weeks Meds Home Medications and Allergies Home Medications Medication Instructions Recorded Confirmed Type albuterol sulfate 90 mcg/actuation See Rx Instructions .Route 02/15/23 08/23/23 Rx aerosol inhaler .COMPLEX Breathing problems #8.5 grams fluticasone 100 mcg-salmeterol 50 See Rx Instructions .Route 02/15/23 08/23/23 Rx mcg/dose blistr powdr for .COMPLEX #60 blisters inhalation (Advair Diskus) fluticasone propionate 50 See Rx Instructions .Route 02/15/23 08/23/23 Rx mcg/actuation nasal .COMPLEX allergies #16 grams spray,suspension levothyroxine 88 mcg tablet 88 mcg PO DAILY THYROID #90 tabs 02/15/23 08/23/23 Rx atorvastatin 40 mg tablet 40 mg PO DAILY #90 tabs 02/23/23 08/23/23 Rx hydroxyzine HCl 25 mg tablet 25 mg PO HS sleep, itching #90 04/26/23 08/23/23 Rx tabs gabapentin 800 mg tablet 800 mg PO QID nerve pain #120 tabs 07/19/23 08/23/23 Rx (Neurontin) hydrocodone 7.5 mg-acetaminophen 1 tab PO 5XDAY Pain #150 tabs 07/19/23 08/23/23 Rx 325 mg tablet ergocalciferol (vitamin D2) 50 mcg 50 mcg PO DAILY #30 caps 08/14/23 08/23/23 Rx (2,000 unit) capsule ipratropium 0.5 mg-albuterol 3 mg 3 ml inhalation Q4-6H PRN 08/14/23 08/23/23 Rx (2.5 mg base)/3 mL nebulization shortness of breath or wheezing soln #180 mL montelukast 10 mg tablet See Rx Instructions .Route 08/14/23 08/23/23 Rx .COMPLEX #90 tabs tizanidine 4 mg capsule 4 mg PO BID Pain #60 caps 08/14/23 08/23/23 Rx cholecalciferol (vitamin D3) 1,250 See Rx Instructions .Route 08/22/23 08/23/23 Rx mcg (50,000 unit) capsule .COMPLEX #14 caps New Prescriptions to Start Prescriptions: Allergies Allergy/AdvReac Type Severity Reaction Status Date / Time Penicillins Allergy Intermediate I-HIVES Verified 08/14/23 10:29 Assessment and Plan *Assessment and plan (1) Lumbar radiculopathy: Status: Acute Category: Medical Code(s): M54.16 - Radiculopathy, lumbar region (2) DDD (degenerative disc disease), lumbar: Status: Acute Category: Medical Code(s): M51.36 - Other intervertebral disc degeneration, lumbar region Plan I will refill the patient's [place] and gabapentin and provide a 1 month supply ply of these medications. Patient will return to clinic in 1 month for reevaluation of symptoms and plan of care. Risks and benefits of the medication have been explained in detail to the patient. The patient does understand the risk of dependence on the medication when given over a prolonged period. Patient has been advised of risks of oversedation with the prescribed medication. Narcan has been offered to the paitent in the event of over sedation. Patient has been advised that a family member should also be educated regarding administration of Narcan. The patient has been advised to consult with his/her primary care provider and pharmacist regarding drug-drug interaction of medications currently prescribed. Patient has been prescribed a controlled substance after being counseled on the medication, medication safety, and possible side effects. Opioid contract was reviewed and signed by the patient, and that they have agreed to all of the terms set forth by our compliance program. Patient has been instructed to contact the clinic with any concerns before the next appointment. Dr. Watson has reviewed this note and agrees with this plan of care. This note was dictated using voice recognition software and make contain errors or omissions.
== END 2023-08-23 23:59 | disposition home or self-care (01) ==
PROVIDERS: PCP Internal Medicine; Visit Provider Nurse Practitioner Family
DX: M51.16 Intervertebral disc disorders with radiculopathy, lumbar region (principal); F17.210 Nicotine dependence, cigarettes, uncomplicated; Z79.899 Other long term (current) drug therapy
CPT/HCPCS: 99212; G0463

== ENCOUNTER 2023-09-20 10:58 | Outpatient (POV) | payer MEDICAID, SELFPAY ==
[2023-09-20 11:14] VITALS: BP 110/73; PULSE 66; RESP 18; O2SAT 94; BMI 25.0
--- NOTE | 2023-09-20 11:20 | EXP.PAIN.SOA ---
[facility] Disclaimer: The information contained in this section may have been updated after the patient was seen, as this information can be updated by other users. Medical History DDD (degenerative disc disease), lumbar Vitamin D deficiency HLD (hyperlipidemia) Osteopenia COPD exacerbation COPD (chronic obstructive pulmonary disease) GERD (gastroesophageal reflux disease) Hypothyroidism Social History Smoking Status: Current every day smoker tobacco type: cigarettes packs per day: 1 alcohol intake: never substance use type: denies use current occupational status: retired Travel in the last 8 weeks: None PM Subjective & Objective Subjective Subjective:: Patient is a pleasant 63-year-old female who presents today for medication refill. Today she rates her pain a 3 out of 10. Patient denies any new trauma or injury. She does state that she is still doing well with her current medications. She is currently managed with [place] 7.5 mg 5 times a day and gabapentin 800 mg 4 times a day. She denies any side effects from this medication. She does state that they have officially stop the chemo for her boyfriend and that they are trying to get him in for a different trial however they are waiting to have insurance approval. Her Sky has been reviewed and is appropriate. Review of Systems: General: No recent weight changes, no fever, no sleep disturbances Respiratory: No cough, no shortness of air, no recurring pulmonary infections Cardiovascular/peripheral vascular: No chest pain, no palpitations, no edema, no shortness of breath Gastrointestinal: No new onset incontinence, normal bowel movements reported Genitourinary: No new onset incontinence Musculoskeletal: Low back pain Psychiatric: [Normal mood/affect] Neurological: [Denies weakness in extremities], [denies balance issues] Pain at rest (0-10 scale): 3 Objective Objective:: Physical Exam: General: Alert and oriented x3, no acute distress, pleasant and cooperative Lungs: Respirations even and unlabored, symmetrical chest expansion Eyes: PERRL Musculoskeletal: Flexion and extension of lumbar [spine] somewhat guarded secondary to pain, [antalgic gait noted] Neurological: Speech clear, no gross sensory deficit Has patient had previous pain injection?: No Conservative treatment options previously tried: Home exercise plan Length of treatment: Longer than 6 weeks Meds Home Medications and Allergies Home Medications ?Medication ?Instructions ?Recorded ?Confirmed ?Type albuterol sulfate 90 mcg/actuation See Rx Instructions .Route 02/15/23 09/20/23 Rx aerosol inhaler .COMPLEX Breathing problems #8.5 grams fluticasone 100 mcg-salmeterol 50 See Rx Instructions .Route 02/15/23 09/20/23 Rx mcg/dose blistr powdr for .COMPLEX #60 blisters inhalation (Advair Diskus) fluticasone propionate 50 See Rx Instructions .Route 02/15/23 09/20/23 Rx mcg/actuation nasal .COMPLEX allergies #16 grams spray,suspension levothyroxine 88 mcg tablet 88 mcg PO DAILY THYROID #90 tabs 02/15/23 09/20/23 Rx atorvastatin 40 mg tablet 40 mg PO DAILY #90 tabs 02/23/23 09/20/23 Rx hydroxyzine HCl 25 mg tablet 25 mg PO HS sleep, itching #90 04/26/23 09/20/23 Rx tabs ergocalciferol (vitamin D2) 50 mcg 50 mcg PO DAILY #30 caps 08/14/23 09/20/23 Rx (2,000 unit) capsule ipratropium 0.5 mg-albuterol 3 mg 3 ml inhalation Q4-6H PRN 08/14/23 09/20/23 Rx (2.5 mg base)/3 mL nebulization shortness of breath or wheezing soln #180 mL montelukast 10 mg tablet See Rx Instructions .Route 08/14/23 09/20/23 Rx .COMPLEX #90 tabs tizanidine 4 mg capsule 4 mg PO BID Pain #60 caps 08/14/23 09/20/23 Rx cholecalciferol (vitamin D3) 1,250 See Rx Instructions .Route 08/22/23 09/20/23 Rx mcg (50,000 unit) capsule .COMPLEX #14 caps gabapentin 800 mg tablet 800 mg PO QID nerve pain #120 tabs 08/23/23 09/20/23 Rx (Neurontin) hydrocodone 7.5 mg-acetaminophen 1 tab PO 5XDAY Pain #150 tabs 08/23/23 09/20/23 Rx 325 mg tablet New Prescriptions to Start Prescriptions: Allergies Allergy/AdvReac Type Severity Reaction Status Date / Time Penicillins Allergy Intermediate I-HIVES Verified 08/14/23 10:29 Assessment and Plan *Assessment and plan (1) Lumbar radiculopathy: Status: Acute Category: Medical Code(s): M54.16 - Radiculopathy, lumbar region (2) DDD (degenerative disc disease), lumbar: Status: Acute Category: Medical Code(s): M51.36 - Other intervertebral disc degeneration, lumbar region Plan I will refill the patient's [place] and gabapentin and provide a 1 month supply of this medication. Patient will return to clinic in 1 month for reevaluation of symptoms and plan of care. Risks and benefits of the medication have been explained in detail to the patient. The patient does understand the risk of dependence on the medication when given over a prolonged period. Patient has been advised of risks of oversedation with the prescribed medication. Narcan has been offered to the paitent in the event of oversedation. Patient has been advised that a family member should also be educated regarding administration of Narcan. The patient has been advised to consult with his/her primary care provider and pharmacist regarding drug-drug interaction of medications currently prescribed. Patient has been prescribed a controlled substance after being counseled on the medication, medication safety, and possible side effects. Opioid contract was reviewed and signed by the patient, and that they have agreed to all of the terms set forth by our compliance program. Patient has been instructed to contact the clinic with any concerns before the next appointment. Dr. Waston has reviewed this note and agrees with this plan of care. This note was dictated using voice recognition software and make contain errors or omissions.
== END 2023-09-20 23:59 | disposition home or self-care (01) ==
PROVIDERS: PCP Internal Medicine; Visit Provider Nurse Practitioner Family
DX: M51.16 Intervertebral disc disorders with radiculopathy, lumbar region (principal); F17.210 Nicotine dependence, cigarettes, uncomplicated; Z79.899 Other long term (current) drug therapy
CPT/HCPCS: 99212; G0463

== ENCOUNTER 2023-10-25 10:16 | Outpatient (POV) | payer MEDICAID, SELFPAY ==
--- NOTE | 2023-10-25 10:35 | EXP.PAIN.SOA ---
[facility] Disclaimer: The information contained in this section may have been updated after the patient was seen, as this information can be updated by other users. Medical History DDD (degenerative disc disease), lumbar Vitamin D deficiency HLD (hyperlipidemia) Osteopenia COPD exacerbation COPD (chronic obstructive pulmonary disease) GERD (gastroesophageal reflux disease) Hypothyroidism Social History Smoking Status: Current every day smoker tobacco type: cigarettes packs per day: 1 alcohol intake: never substance use type: denies use current occupational status: retired Travel in the last 8 weeks: None PM Subjective & Objective Subjective Subjective:: Patient is a pleasant 63-year-old female who presents today for medication refill and follow-up. Today she rates her pain a 3 out of 10. She denies any new trauma or injury. She does state that she is still doing really well with her current medications. She is currently managed with [place] 7.5 mg 5 times a day and gabapentin 800 mg 4 times a day. She denies any side effects from this medication. Her Sky has been reviewed and is appropriate. Review of Systems: General: No recent weight changes, no fever, no sleep disturbances Respiratory: No cough, no shortness of air, no recurring pulmonary infections Cardiovascular/peripheral vascular: No chest pain, no palpitations, no edema, no shortness of breath Gastrointestinal: No new onset incontinence, normal bowel movements reported Genitourinary: No new onset incontinence Musculoskeletal: Low back pain Psychiatric: [Normal mood/affect] Neurological: [Denies weakness in extremities], [denies balance issues] Pain at rest (0-10 scale): 3 Objective Objective:: Physical Exam: General: Alert and oriented x3, no acute distress, pleasant and cooperative Lungs: Respirations even and unlabored, symmetrical chest expansion Eyes: PERRL Musculoskeletal: Flexion and extension of lumbar [spine] somewhat guarded secondary to pain, [antalgic gait noted] Neurological: Speech clear, no gross sensory deficit Has patient had previous pain injection?: No Conservative treatment options previously tried: Prescription medications Length of treatment: Longer than 12 weeks Meds Home Medications and Allergies Home Medications ?Medication ?Instructions ?Recorded ?Confirmed ?Type albuterol sulfate 90 mcg/actuation See Rx Instructions .Route 02/15/23 09/20/23 Rx aerosol inhaler .COMPLEX Breathing problems #8.5 grams fluticasone 100 mcg-salmeterol 50 See Rx Instructions .Route 02/15/23 09/20/23 Rx mcg/dose blistr powdr for .COMPLEX #60 blisters inhalation (Advair Diskus) fluticasone propionate 50 See Rx Instructions .Route 02/15/23 09/20/23 Rx mcg/actuation nasal .COMPLEX allergies #16 grams spray,suspension levothyroxine 88 mcg tablet 88 mcg PO DAILY THYROID #90 tabs 02/15/23 09/20/23 Rx atorvastatin 40 mg tablet 40 mg PO DAILY #90 tabs 02/23/23 09/20/23 Rx hydroxyzine HCl 25 mg tablet 25 mg PO HS sleep, itching #90 04/26/23 09/20/23 Rx tabs ergocalciferol (vitamin D2) 50 mcg 50 mcg PO DAILY #30 caps 08/14/23 09/20/23 Rx (2,000 unit) capsule ipratropium 0.5 mg-albuterol 3 mg 3 ml inhalation Q4-6H PRN 08/14/23 09/20/23 Rx (2.5 mg base)/3 mL nebulization shortness of breath or wheezing soln #180 mL montelukast 10 mg tablet See Rx Instructions .Route 08/14/23 09/20/23 Rx .COMPLEX #90 tabs tizanidine 4 mg capsule 4 mg PO BID Pain #60 caps 08/14/23 09/20/23 Rx cholecalciferol (vitamin D3) 1,250 See Rx Instructions .Route 08/22/23 09/20/23 Rx mcg (50,000 unit) capsule .COMPLEX #14 caps gabapentin 800 mg tablet 800 mg PO QID nerve pain #120 tabs 09/20/23 Rx (Neurontin) hydrocodone 7.5 mg-acetaminophen 1 tab PO 5XDAY #150 tabs 09/24/23 Rx 325 mg tablet New Prescriptions to Start Prescriptions: Allergies Allergy/AdvReac Type Severity Reaction Status Date / Time Penicillins Allergy Intermediate I-HIVES Verified 08/14/23 10:29 Assessment and Plan *Assessment and plan (1) Lumbar radiculopathy: Status: Acute Category: Medical Code(s): M54.16 - Radiculopathy, lumbar region (2) DDD (degenerative disc disease), lumbar: Status: Acute Category: Medical Code(s): M51.36 - Other intervertebral disc degeneration, lumbar region Plan I will refill the patient's [place] and gabapentin and provide a 1 month supply of this medication. Patient will return to clinic in 1 month for reevaluation of symptoms and plan of care. Risks and benefits of the medication have been explained in detail to the patient. The patient does understand the risk of dependence on the medication when given over a prolonged period. Patient has been advised of risks of oversedation with the prescribed medication. Narcan has been offered to the paitent in the event of oversedation. Patient has been advised that a family member should also be educated regarding administration of Narcan. The patient has been advised to consult with his/her primary care provider and pharmacist regarding drug-drug interaction of medications currently prescribed. Patient has been prescribed a controlled substance after being counseled on the medication, medication safety, and possible side effects. Opioid contract was reviewed and signed by the patient, and that they have agreed to all of the terms set forth by our compliance program. Patient has been instructed to contact the clinic with any concerns before the next appointment. Dr. Watson has reviewed this note and agrees with this plan of care. This note was dictated using voice recognition software and make contain errors or omissions.
[2023-10-25 11:14] VITALS: BP 107/69; PULSE 72; BMI 25.0
== END 2023-10-25 23:59 | disposition home or self-care (01) ==
PROVIDERS: PCP Internal Medicine; Visit Provider Nurse Practitioner Family
DX: M51.16 Intervertebral disc disorders with radiculopathy, lumbar region (principal); F17.210 Nicotine dependence, cigarettes, uncomplicated; Z79.899 Other long term (current) drug therapy
CPT/HCPCS: 99212; G0463

== ENCOUNTER 2023-11-26 11:31 | Outpatient (POV) | payer MEDICAID, SELFPAY ==
--- NOTE | 2023-11-26 11:50 | A.OFFVIS_ITS ---
[facility] Disclaimer: The information contained in this section may have been updated after the patient was seen, as this information can be updated by other users. Medical History (Updated 11/02/23 @ 16:04 by Mirta Morales RN) Breast cancer screening Colon cancer screening declined DDD (degenerative disc disease), lumbar Vitamin D deficiency HLD (hyperlipidemia) Osteopenia COPD exacerbation COPD (chronic obstructive pulmonary disease) GERD (gastroesophageal reflux disease) Hypothyroidism Social History Smoking Status: Current every day smoker tobacco type: cigarettes packs per day: 1 alcohol intake: never substance use type: denies use current occupational status: other Travel in the last 8 weeks: None PM Subjective & Objective Subjective Subjective:: Patient is a pleasant 63-year-old female who presents today for medication refill. Today she rates her pain a 4 out of 10. She denies any new trauma or injury. She does state that she thinks that she has bone spurs on her bilateral heels. Patient states that this is a newer issue and that she has not had this before. She states she is planning on talking to her PCP about getting her in to see the principal clerk. Patient is currently managed with [place] 7.5 mg 5 times a day, gabapentin 800 mg 4 times a day and compounded cream. Patient denies any side effects from this medication. Her Sky has been reviewed and is appropriate. Review of Systems: General: No recent weight changes, no fever, no sleep disturbances Respiratory: No cough, no shortness of air, no recurring pulmonary infections Cardiovascular/peripheral vascular: No chest pain, no palpitations, no edema, no shortness of breath Gastrointestinal: No new onset incontinence, normal bowel movements reported Genitourinary: No new onset incontinence Musculoskeletal: Low back pain, bilateral heel pain Psychiatric: [Normal mood/affect] Neurological: [Denies weakness in extremities], [denies balance issues] Pain at rest (0-10 scale): 4 Objective Objective:: Physical Exam: General: Alert and oriented x3, no acute distress, pleasant and cooperative Lungs: Respirations even and unlabored, symmetrical chest expansion Eyes: PERRL Musculoskeletal: Flexion and extension of lumbar [spine] somewhat guarded secondary to pain, [antalgic gait noted] Neurological: Speech clear, no gross sensory deficit Has patient had previous pain injection?: No Conservative treatment options previously tried: Home exercise plan Length of treatment: Longer than 12 weeks Meds Home Medications and Allergies Home Medications ?Medication ?Instructions ?Recorded ?Confirmed ?Type albuterol sulfate 90 mcg/actuation See Rx Instructions .Route 02/15/23 10/25/23 Rx aerosol inhaler .COMPLEX Breathing problems #8.5 grams fluticasone 100 mcg-salmeterol 50 See Rx Instructions .Route 02/15/23 10/25/23 Rx mcg/dose blistr powdr for .COMPLEX #60 blisters inhalation (Advair Diskus) fluticasone propionate 50 See Rx Instructions .Route 02/15/23 10/25/23 Rx mcg/actuation nasal .COMPLEX allergies #16 grams spray,suspension levothyroxine 88 mcg tablet 88 mcg PO DAILY THYROID #90 tabs 02/15/23 10/25/23 Rx atorvastatin 40 mg tablet 40 mg PO DAILY #90 tabs 02/23/23 10/25/23 Rx ergocalciferol (vitamin D2) 50 mcg 50 mcg PO DAILY #30 caps 08/14/23 10/25/23 Rx (2,000 unit) capsule ipratropium 0.5 mg-albuterol 3 mg 3 ml inhalation Q4-6H PRN 08/14/23 10/25/23 Rx (2.5 mg base)/3 mL nebulization shortness of breath or wheezing soln #180 mL montelukast 10 mg tablet See Rx Instructions .Route 08/14/23 10/25/23 Rx .COMPLEX #90 tabs tizanidine 4 mg capsule 4 mg PO BID Pain #60 caps 08/14/23 10/25/23 Rx cholecalciferol (vitamin D3) 1,250 See Rx Instructions .Route 08/22/23 10/25/23 Rx mcg (50,000 unit) capsule .COMPLEX #14 caps gabapentin 800 mg tablet 800 mg PO QID nerve pain #120 tabs 10/25/23 Rx (Neurontin) hydrocodone 7.5 mg-acetaminophen 1 tab PO 5XDAY #150 tabs 10/25/23 Rx 325 mg tablet hydroxyzine HCl 25 mg tablet See Rx Instructions .Route 10/26/23 Rx .COMPLEX #90 tabs New Prescriptions to Start Prescriptions: Allergies Allergy/AdvReac Type Severity Reaction Status Date / Time Penicillins Allergy Intermediate I-HIVES Verified 08/14/23 10:29 Assessment and Plan *Assessment and plan (1) Lumbar radiculopathy: Status: Acute Category: Medical Code(s): M54.16 - Radiculopathy, lumbar region (2) DDD (degenerative disc disease), lumbar: Status: Acute Category: Medical Code(s): M51.36 - Other intervertebral disc degeneration, lumbar region Plan I will refill the patient's Qu[place] and gabapentin and provide a 1 month supply of this medication. I did also business and financial counsel the patient to try the compounded cream on her heels. Patient states she is out of this medication. I will also send refills of this. Patient will return to clinic in 1 month for reevaluation of symptoms and plan of care. Risks and benefits of the medication have been explained in detail to the patient. The patient does understand the risk of dependence on the medication when given over a prolonged period. Patient has been advised of risks of oversedation with the prescribed medication. Narcan has been offered to the paitent in the event of oversedation. Patient has been advised that a family member should also be educated regarding administration of Narcan. The patient has been advised to consult with his/her primary care provider and pharmacist regarding drug-drug interaction of medications currently prescribed. Patient has been prescribed a controlled substance after being counseled on the medication, medication safety, and possible side effects. Opioid contract was reviewed and signed by the patient, and that they have agreed to all of the terms set forth by our compliance program. Patient has been instructed to contact the clinic with any concerns before the next appointment. Dr. Watson has reviewed this note and agrees with this plan of care. This note was dictated using voice recognition software and make contain errors or omissions.
[2023-11-26 12:06] VITALS: BP 154/64; PULSE 78; RESP 18; O2SAT 92; BMI 24.2
== END 2023-11-26 23:59 | disposition home or self-care (01) ==
PROVIDERS: PCP Internal Medicine; Visit Provider Nurse Practitioner Family
DX: M51.16 Intervertebral disc disorders with radiculopathy, lumbar region (principal); F17.210 Nicotine dependence, cigarettes, uncomplicated; Z79.899 Other long term (current) drug therapy
CPT/HCPCS: 99212; G0463

== ENCOUNTER 2023-12-26 10:15 | Outpatient (POV) | payer MEDICAID, SELFPAY ==
--- OUTSIDE RECORDS SUMMARY | 2023-12-26 10:18 | XMS_ITS | Encounter Summary ---
Author Organization Healthcare Address [facility] [place] [address] Care Team Providers Care Fuel Oil Truck Driver Name Role Phone Unavailable Primary Care Provider Unavailabl e Encounter Details Date Type Department Care Team (Late st Contact Info) Description 03/01/2016 [facility] Vitals Encounter [facility] OUTPATIENT CONVERSIONS [address] [place] [address] ProviderIsreal MD [address] [place] [address] Social History Tobacco Use Types Packs/Day Years Used Date Smoking Tobacco: Never Assessed Comments Unknown Sex and Gender Information Value Date Recorded Sex Assigned at Not on file Legal Sex Female 8:29 PM EDT Gender Identity Not on file Sexual Orientation Not on file documented as of this encounter Last Filed Vital Signs Vital Sign Reading Time Taken Comments Blood Pressure - - Pulse - - Temperature - - Respiratory Rate - - Oxygen Saturation - - Inhaled Oxygen Concentration - - Weight 68.9 kg (152 lb 0.1 oz) 03/01/2016 3:49 P M EST Height 167.6 cm (5' 6 ) 03/01/2016 3:49 PM EST Body Mass Index 24.53 03/01/2016 3:49 PM EST documented in this encounter Plan of Treatment Not on file documented as of this encounter Visit Diagnoses Not on filedocumented in this encounter
--- OUTSIDE RECORDS SUMMARY | 2023-12-26 10:18 | XMS_ITS | Clinical Summary ---
Author Organization Healthcare Address [address] [place] [address] Care Team Providers Care Paper Winder Name Role Phone Earl Maki MD Primary Care Provider + [phone] Family History Medical History Relation Name Comments Rheum arthritis Mother Cardiac disorder Other 1 Diabetes Other 2 Rheum arthritis Other 3 Relation Name Status Comments Mother Other 1 Other 2 Other 3 Social History Tobacco Use Types Packs/Day Years Used Date Smoking Tobacco: Every Day Alcohol Use Standard Drinks/Week Comments No 0 (1 standard drink = 0.6 oz pur e alcohol) Comments Unknown Sex and Gender Information Value Date Recorded Sex Assigned at Not on file Legal Sex Female 8:29 PM EDT Gender Identity Not on file Sexual Orientation Not on file Last Filed Vital Signs Vital Sign Reading Time Taken Comments Blood Pressure - - Pulse - - Temperature - - Respiratory Rate - - Oxygen Saturation - - Inhaled Oxygen Concentration - - Weight 69.8 kg (153 lb 15.9 oz) 08/29/2016 3:33 PM EDT Height 167.6 cm (5' 6 ) 08/29/2016 3:33 PM EDT Body Mass Index 24.85 08/29/2016 3:33 PM EDT Plan of Treatment Not on file Care Teams Paper Winder Relationship Specialty Start Date End Date Earl Maki MD [address] [place] [address] PCP - General 06/25/20
--- OUTSIDE RECORDS SUMMARY | 2023-12-26 10:18 | XMS_ITS | Encounter Summary ---
Author Organization Healthcare Address [facility] [place] [address] Care Team Providers Care Shift Leader Name Role Phone Unavailable Primary Care Provider Unavailabl e Encounter Details Date Type Department Care Team (Late st Contact Info) Description 09/01/2015 [facility] Vitals Encounter [facility] OUTPATIENT CONVERSIONS [address] [place] [address] ProviderIsreal MD [address] [place] [id number] Social History Tobacco Use Types Packs/Day [...] - Inhaled Oxygen Concentration - - Weight 66.7 kg (147 lb) 09/01/2015 2:22 PM EDT Height 167.6 cm (5' 6 ) 09/01/2015 2:22 PM EDT Body Mass Index 23.73 09/01/2015 2:22 PM EDT documented in this encounter Plan of Treatment Not on file documented as of this encounter Visit Diagnoses Not on filedocumented in this encounter
--- OUTSIDE RECORDS SUMMARY | 2023-12-26 10:18 | XMS_ITS | Encounter Summary ---
Author Organization Healthcare Address [address] [place] [address] Care Team Providers Care Logistics Analyst Name Role Phone Unavailable Primary Care Provider Unavailabl e Encounter Details Date Type Department Care Team (Late st Contact Info) Description 07/14/2015 [facility] AEHR Vitals Encounter [facility] OUTPATIENT CONVERSIONS [address] [place] [address] ProviderIsreal MD [address] [place] [address] Social History Tobacco Use Types Packs/Day [...] - Inhaled Oxygen Concentration - - Weight 68 kg (150 lb) 07/14/2015 2:40 PM EDT Height 167.6 cm (5' 6 ) 07/14/2015 2:40 PM EDT Body Mass Index 24.21 07/14/2015 2:40 PM EDT documented in this encounter Plan of Treatment Not on file documented as of this encounter Visit Diagnoses Not on filedocumented in this encounter
--- OUTSIDE RECORDS SUMMARY | 2023-12-26 10:18 | XMS_ITS | Encounter Summary ---
Author Organization Healthcare Address [facility] [place] [address] Care Team Providers Care Speech Clinician Name Role Phone Unavailable Primary Care Provider Unavailabl e Encounter Details Date Type Department Care Team (Late st Contact Info) Description 08/29/2016 [facility] Vitals Encounter [facility] OUTPATIENT CONVERSIONS [address] [place] [address] ProviderIsreal MD [address] [place] [id number] Social History Tobacco Use Types Packs/Day [...] Mass Index 24.85 08/29/2016 3:33 PM EDT documented in this encounter Plan of Treatment Not on file documented as of this encounter Visit Diagnoses Not on filedocumented in this encounter
[2023-12-26 11:12] VITALS: BP 110/60; PULSE 81; RESP 14; O2SAT 91; BMI 25.7
--- NOTE | 2023-12-26 11:12 | EXP.PAIN.SOA ---
[facility] Disclaimer: The information contained in this section may have been updated after the patient was seen, as this information can be updated by other users. Medical History (Updated 11/02/23 @ 16:04 by Mirta Morales RN) Breast cancer screening Colon cancer screening declined DDD (degenerative disc disease), lumbar Vitamin D deficiency HLD (hyperlipidemia) Osteopenia COPD exacerbation COPD (chronic obstructive pulmonary disease) GERD (gastroesophageal reflux disease) Hypothyroidism Social History Smoking Status: Current every day smoker tobacco type: cigarettes packs per day: 1 alcohol intake: never substance use type: denies use current occupational status: other Travel in the last 8 weeks: None PM Subjective & Objective Subjective Subjective:: Patient is a pleasant 63-year-old female who presents today for medication refill and follow-up. Today she rates her pain a 3 out of 10. She denies any new trauma or injury. She does state that she did try the compounded cream on her legs and heels and it worked remarkably. She states that she is still using that along with her [place] 7.5 mg 5 times a day and gabapentin 800 mg 4 times a day and that this combination is working well. She denies any side effects from this medication. Her Sky has been reviewed and is appropriate. Review of Systems: General: No recent weight changes, no fever, no sleep disturbances Respiratory: No cough, no shortness of air, no recurring pulmonary infections Cardiovascular/peripheral vascular: No chest pain, no palpitations, no edema, no shortness of breath Gastrointestinal: No new onset incontinence, normal bowel movements reported Genitourinary: No new onset incontinence Musculoskeletal: Low back pain, heel pain Psychiatric: [Normal mood/affect] Neurological: [Denies weakness in extremities], [denies balance issues] Pain at rest (0-10 scale): 3 Objective Objective:: Physical Exam: General: Alert and oriented x3, no acute distress, pleasant and cooperative Lungs: Respirations even and unlabored, symmetrical chest expansion Eyes: PERRL Musculoskeletal: Flexion and extension of lumbar [spine] somewhat guarded secondary to pain, [antalgic gait noted] Neurological: Speech clear, no gross sensory deficit Has patient had previous pain injection?: No Conservative treatment options previously tried: Home exercise plan Length of treatment: Longer than 12 weeks Meds Home Medications and Allergies Home Medications ?Medication ?Instructions ?Recorded ?Confirmed ?Type albuterol sulfate 90 mcg/actuation See Rx Instructions .Route 02/15/23 11/26/23 Rx aerosol inhaler .COMPLEX Breathing problems #8.5 grams fluticasone 100 mcg-salmeterol 50 See Rx Instructions .Route 02/15/23 11/26/23 Rx mcg/dose blistr powdr for .COMPLEX #60 blisters inhalation (Advair Diskus) fluticasone propionate 50 See Rx Instructions .Route 02/15/23 11/26/23 Rx mcg/actuation nasal .COMPLEX allergies #16 grams spray,suspension atorvastatin 40 mg tablet 40 mg PO DAILY #90 tabs 02/23/23 11/26/23 Rx ergocalciferol (vitamin D2) 50 mcg 50 mcg PO DAILY #30 caps 08/14/23 11/26/23 Rx (2,000 unit) capsule ipratropium 0.5 mg-albuterol 3 mg 3 ml inhalation Q4-6H PRN 08/14/23 11/26/23 Rx (2.5 mg base)/3 mL nebulization shortness of breath or wheezing soln #180 mL montelukast 10 mg tablet See Rx Instructions .Route 08/14/23 11/26/23 Rx .COMPLEX #90 tabs tizanidine 4 mg capsule 4 mg PO BID Pain #60 caps 08/14/23 11/26/23 Rx hydroxyzine HCl 25 mg tablet See Rx Instructions .Route 10/26/23 11/26/23 Rx .COMPLEX #90 tabs gabapentin 800 mg tablet 800 mg PO QID nerve pain #120 tabs 11/26/23 Rx (Neurontin) hydrocodone 7.5 mg-acetaminophen 1 tab PO 5XDAY #150 tabs 11/26/23 Rx 325 mg tablet levothyroxine 88 mcg tablet 88 mcg PO DAILY THYROID #90 tabs 12/10/23 Rx gabapentin 800 mg tablet 800 mg PO QID #16 tabs 12/19/23 Rx (Neurontin) hydrocodone 7.5 mg-acetaminophen 1 tab PO 5XDAY #20 tabs 12/19/23 Rx 325 mg tablet cholecalciferol (vitamin D3) 1,250 See Rx Instructions .Route 12/24/23 Rx mcg (50,000 unit) capsule .COMPLEX #14 caps New Prescriptions to Start Prescriptions: Allergies Allergy/AdvReac Type Severity Reaction Status Date / Time Penicillins Allergy Intermediate I-HIVES Verified 08/14/23 10:29 Assessment and Plan *Assessment and plan (1) Lumbar radiculopathy: Status: Acute Category: Medical Code(s): M54.16 - Radiculopathy, lumbar region (2) DDD (degenerative disc disease), lumbar: Status: Acute Category: Medical Code(s): M51.36 - Other intervertebral disc degeneration, lumbar region Plan I will refill the patient's [place] and gabapentin and provide a 1 month supply of these medications. Patient will return to clinic in 1 month for reevaluation of symptoms and plan of care. Risks and benefits of the medication have been explained in detail to the patient. The patient does understand the risk of dependence on the medication when given over a prolonged period. Patient has been advised of risks of oversedation with the prescribed medication. Narcan has been offered to the paitent in the event of oversedation. Patient has been advised that a family member should also be educated regarding administration of Narcan. The patient has been advised to consult with his/her primary care provider and pharmacist regarding drug-drug interaction of medications currently prescribed. Patient has been prescribed a controlled substance after being counseled on the medication, medication safety, and possible side effects. Opioid contract was reviewed and signed by the patient, and that they have agreed to all of the terms set forth by our compliance program. Patient has been instructed to contact the clinic with any concerns before the next appointment. Dr. Watson has reviewed this note and agrees with this plan of care. This note was dictated using voice recognition software and make contain errors or omissions.
== END 2023-12-26 23:59 | disposition home or self-care (01) ==
PROVIDERS: PCP Internal Medicine; Visit Provider Nurse Practitioner Family
DX: M51.16 Intervertebral disc disorders with radiculopathy, lumbar region (principal)
CPT/HCPCS: 99212; G0463

== ENCOUNTER 2024-01-24 10:07 | Outpatient (POV) | payer MEDICAID, SELFPAY ==
--- NOTE | 2024-01-24 10:29 | EXP.PAIN.SOA ---
[facility] Disclaimer: The information contained in this section may have been updated after the patient was seen, as this information can be updated by other users. Medical History (Updated 11/02/23 @ 16:04 by Mirta Morales RN) Breast cancer screening Colon cancer screening declined DDD (degenerative disc disease), lumbar Vitamin D deficiency HLD (hyperlipidemia) Osteopenia COPD exacerbation COPD (chronic obstructive pulmonary disease) GERD (gastroesophageal reflux disease) Hypothyroidism Social History Smoking Status: Current every day smoker tobacco type: cigarettes packs per day: 1 alcohol intake: never substance use type: denies use current occupational status: other Travel in the last 8 weeks: None PM Subjective & Objective Subjective Subjective:: Patient is a pleasant 63-year-old female who presents for her monthly medication refill appointment. She rates her pain a 3 out of 10. She states overall she has maintained from our last visit. She does state that her boyfriend's cancer has shrunk a little and has not spread any additionally. Patient is currently managed with [place] 7.5 mg 5 times a day and gabapentin 800 mg 4 times a day. She denies any side effects from this medication. She does want to make sure that it is sent to [facility]. Her Sky has been reviewed and is appropriate. Review of Systems: General: No recent weight changes, no fever, no sleep disturbances Respiratory: No cough, no shortness of air, no recurring pulmonary infections Cardiovascular/peripheral vascular: No chest pain, no palpitations, no edema, no shortness of breath Gastrointestinal: No new onset incontinence, normal bowel movements reported Genitourinary: No new onset incontinence Musculoskeletal: Low back pain Psychiatric: [Normal mood/affect] Neurological: [Denies weakness in extremities], [denies balance issues] Pain at rest (0-10 scale): 3 Objective Objective:: Physical Exam: General: Alert and oriented x3, no acute distress, pleasant and cooperative Lungs: Respirations even and unlabored, symmetrical chest expansion Eyes: PERRL Musculoskeletal: Flexion and extension of lumbar [spine] somewhat guarded secondary to pain, [antalgic gait noted] Neurological: Speech clear, no gross sensory deficit Has patient had previous pain injection?: No Conservative treatment options previously tried: Prescription medications Length of treatment: Longer than 12 weeks Meds Home Medications and Allergies Home Medications ?Medication ?Instructions ?Recorded ?Confirmed ?Type albuterol sulfate 90 mcg/actuation See Rx Instructions .Route 02/15/23 12/26/23 Rx aerosol inhaler .COMPLEX Breathing problems #8.5 grams fluticasone 100 mcg-salmeterol 50 See Rx Instructions .Route 02/15/23 12/26/23 Rx mcg/dose blistr powdr for .COMPLEX #60 blisters inhalation (Advair Diskus) fluticasone propionate 50 See Rx Instructions .Route 02/15/23 12/26/23 Rx mcg/actuation nasal .COMPLEX allergies #16 grams spray,suspension atorvastatin 40 mg tablet 40 mg PO DAILY #90 tabs 02/23/23 12/26/23 Rx ergocalciferol (vitamin D2) 50 mcg 50 mcg PO DAILY #30 caps 08/14/23 12/26/23 Rx (2,000 unit) capsule ipratropium 0.5 mg-albuterol 3 mg 3 ml inhalation Q4-6H PRN 08/14/23 12/26/23 Rx (2.5 mg base)/3 mL nebulization shortness of breath or wheezing soln #180 mL montelukast 10 mg tablet See Rx Instructions .Route 08/14/23 12/26/23 Rx .COMPLEX #90 tabs tizanidine 4 mg capsule 4 mg PO BID Pain #60 caps 08/14/23 12/26/23 Rx hydroxyzine HCl 25 mg tablet See Rx Instructions .Route 10/26/23 12/26/23 Rx .COMPLEX #90 tabs levothyroxine 88 mcg tablet 88 mcg PO DAILY THYROID #90 tabs 12/10/23 12/26/23 Rx cholecalciferol (vitamin D3) 1,250 See Rx Instructions .Route 12/24/23 12/26/23 Rx mcg (50,000 unit) capsule .COMPLEX #14 caps gabapentin 800 mg tablet 800 mg PO QID #120 tabs 12/26/23 Rx (Neurontin) hydrocodone 7.5 mg-acetaminophen 1 tab PO 5XDAY #150 tabs 12/26/23 Rx 325 mg tablet New Prescriptions to Start Prescriptions: Allergies Allergy/AdvReac Type Severity Reaction Status Date / Time Penicillins Allergy Intermediate I-HIVES Verified 08/14/23 10:29 Assessment and Plan *Assessment and plan (1) Lumbar radiculopathy: Status: Acute Category: Medical Code(s): M54.16 - Radiculopathy, lumbar region (2) DDD (degenerative disc disease), lumbar: Status: Acute Category: Medical Code(s): M51.369 - Other intervertebral disc degeneration, lumbar region without mention of lumbar back pain or lower extremity pain Plan I will refill the patient's Ch[place]is and gabapentin and provide a 1 month supply of this medication. Patient will return to clinic in 1 month for reevaluation of symptoms and plan of care. Risks and benefits of the medication have been explained in detail to the patient. The patient does understand the risk of dependence on the medication when given over a prolonged period. Patient has been advised of risks of oversedation with the prescribed medication. Narcan has been offered to the paitent in the event of oversedation. Patient has been advised that a family member should also be educated regarding administration of Narcan. The patient has been advised to consult with his/her primary care provider and pharmacist regarding drug-drug interaction of medications currently prescribed. Patient has been prescribed a controlled substance after being counseled on the medication, medication safety, and possible side effects. Opioid contract was reviewed and signed by the patient, and that they have agreed to all of the terms set forth by our compliance program. Patient has been instructed to contact the clinic with any concerns before the next appointment. Dr. Watson has reviewed this note and agrees with this plan of care. This note was dictated using voice recognition software and make contain errors or omissions.
[2024-01-24 11:15] VITALS: BP 124/74; PULSE 84; RESP 14; O2SAT 92; BMI 25.7
== END 2024-01-24 23:59 | disposition home or self-care (01) ==
PROVIDERS: PCP Internal Medicine; Visit Provider Nurse Practitioner Family
DX: M51.16 Intervertebral disc disorders with radiculopathy, lumbar region (principal); F17.210 Nicotine dependence, cigarettes, uncomplicated; Z79.899 Other long term (current) drug therapy
CPT/HCPCS: 99212; G0463

== ENCOUNTER 2024-01-28 09:40 | Outpatient (CLI) | payer MEDICAID, SELFPAY ==
[2024-01-28 18:39] LABS: Basophils # 0.1 K/mm3 (0-0.2); Eosinophils # 0.1 K/mm3 (0.0-0.4); Eosinophils % 0.7 % (0.1-12.0); Hematocrit 46.4 % (37.0-47.0); Hemoglobin 14.8 g/dL (12.2-16.2); Lymphocytes # 4.6 K/mm3 (0.7-4.5); Lymphocytes % 33.7 % (10-50); Mean Corpuscular HGB Conc 31.9 g/dL (31.8-35.4); Mean Corpuscular Hemoglobin 32.2 pg (27.0-31.2); Mean Corpuscular Volume 100.8 fl (81-99); Mean Platelet Volume 9.1 fl (7.4-10.4); Monocytes # 0.7 K/mm3 (0.1-1.0); Monocytes % 5.4 % (1.7-9.3); Neutrophils # 8.1 K/mm3 (1.8-7.8); Neutrophils % 59.3 % (37.0-80.0); Platelet Count 400 K/mm3 (142-424); Red Blood Count 4.61 M/mm3 (4.20-5.40); Red Cell Distribution Width 13.5 % (11.5-17.5); White Blood Count 13.7 K/mm3 (4.8-10.8)
[2024-01-28 19:05] LABS: Alanine Aminotransferase 11 U/L (12-78); Albumin Level 3.8 g/dl (3.5-5.0); Albumin/Globulin Ratio 1.3 (1.1-1.8); Alkaline Phosphatase 176 U/L (38-126); Anion Gap 12.9 mEq/L (5-15); Aspartate Amino Transferase 28 U/L (14-36); Bilirubin,Total 0.3 mg/dl (0.2-1.3); Blood Urea Nitrogen 7 mg/dl (7-17); Calcium 9.3 mg/dl (8.4-10.2); Carbon Dioxide 33 mmol/L (22.0-30.0); Chloride 98 mmol/L (98-107); Estimated Glomerular Filt Rate 73 ml/min (>60); GFR (African American) 88 ML/MIN (>60); Glucose 90 mg/dl (74-100); Potassium 4.9 mmoL/L (3.5-5.1); Sodium 139 mmol/L (136-145); Total Protein,Serum 6.8 g/dl (6.3-8.2)
[2024-01-28 19:22] LABS: 25-OH Vitamin D, Total 69.4 ng/mL (30-100)
[2024-01-28 19:35] LABS: Thyroid Stimulating Hormone 6.33 uIU/mL (0.465-4.68)
[2024-01-28 21:28] LABS: Hemoglobin A1C 5.7 % (4.0-6.0)
[2024-01-30 11:40] LABS: HBsAg Screen Negative (Negative); HCV Ab Non Reactive (Non Reactive); Hep A Ab, IGM Negative (Negative); Hep B Core Ab, IgM Negative (Negative)
== END 2024-01-28 23:59 | disposition home or self-care (01) ==
LOC: LAB.DROPOF 01-29 12:48
PROVIDERS: PCP Internal Medicine; Visit Provider Internal Medicine
DX: E03.9 Hypothyroidism, unspecified (principal); Z13.1 Encounter for screening for diabetes mellitus; J06.9 Acute upper respiratory infection, unspecified; J44.9 Chronic obstructive pulmonary disease, unspecified; Z11.59 Encounter for screening for other viral diseases; E55.9 Vitamin D deficiency, unspecified; Z72.0 Tobacco use
CPT/HCPCS: 80050; 80053; 80074; 82306; 83036; 84443; 85025

== ENCOUNTER 2024-02-27 15:04 | Outpatient (POV) | payer MEDICAID, SELFPAY ==
--- NOTE | 2024-02-27 15:37 | EXP.PAIN.SOA ---
[facility] Disclaimer: The information contained in this section may have been updated after the patient was seen, as this information can be updated by other users. Medical History Breast cancer screening Colon cancer screening declined DDD (degenerative disc disease), lumbar Vitamin D deficiency HLD (hyperlipidemia) Osteopenia COPD exacerbation COPD (chronic obstructive pulmonary disease) GERD (gastroesophageal reflux disease) Hypothyroidism Social History Smoking Status: Current every day smoker tobacco type: cigarettes packs per day: 1 alcohol intake: never substance use type: denies use current occupational status: other Travel in the last 8 weeks: None Have you lived/traveled outside [place] in past 30 days?: No Contact w/someone who lives/traveled outside [place] past 30 days?: No Exposure to someone with infectious disease in past 14 days?: No Do you have a fever (greater than 100.4 F or 38 C)?: No Have you tested positive for COVID-19: No Exposed to someone with COVID-19 in past 14 days?: No Do you have a sore throat?: No Do you have a cough?: No Do you have any weakness?: No Do you have any diarrhea?: No Are you experiencing any unusual bleeding?: No Do you have any muscle aches/pain?: No Do you have any abdominal pain?: No Are you experiencing loss of taste or smell?: No PM Subjective & Objective Subjective Subjective:: Patient is a pleasant 64-year-old female who presents today for medication refill. She rates her pain a 3 out of 10. She denies any new trauma or injury. She is currently managed with [place] 7.5 mg 5 times a day and gabapentin 800 mg 4 times a day. She denies any side effects. Her Sky has been reviewed and is appropriate. Review of Systems: General: No recent weight changes, no fever, no sleep disturbances Respiratory: No cough, no shortness of air, no recurring pulmonary infections Cardiovascular/peripheral vascular: No chest pain, no palpitations, no edema, no shortness of breath Gastrointestinal: No new onset incontinence, normal bowel movements reported Genitourinary: No new onset incontinence Musculoskeletal: Low back pain Psychiatric: [Normal mood/affect] Neurological: [Denies weakness in extremities], [denies balance issues] Pain at rest (0-10 scale): 3 Objective Objective:: Physical Exam: General: Alert and oriented x3, no acute distress, pleasant and cooperative Lungs: Respirations even and unlabored, symmetrical chest expansion Eyes: PERRL Musculoskeletal: Flexion and extension of lumbar [spine] somewhat guarded secondary to pain, [antalgic gait noted] Neurological: Speech clear, no gross sensory deficit Has patient had previous pain injection?: No Conservative treatment options previously tried: Prescription medications Length of treatment: Longer than 12 weeks Meds Home Medications and Allergies Home Medications ?Medication ?Instructions ?Recorded ?Confirmed ?Type albuterol sulfate 90 mcg/actuation See Rx Instructions .Route 02/15/23 01/28/24 Rx aerosol inhaler .COMPLEX Breathing problems #8.5 grams hydroxyzine HCl 25 mg tablet See Rx Instructions .Route 10/26/23 01/28/24 Rx .COMPLEX #90 tabs gabapentin 800 mg tablet 800 mg PO QID #120 tabs 01/24/24 01/28/24 Rx (Neurontin) hydrocodone 7.5 mg-acetaminophen 1 tab PO 5XDAY #150 tabs 01/24/24 01/28/24 Rx 325 mg tablet alendronate 10 mg tablet 10 mg PO DAILY #60 tabs 01/28/24 01/28/24 Rx atorvastatin 40 mg tablet 40 mg PO DAILY #90 tabs 01/28/24 01/28/24 Rx ergocalciferol (vitamin D2) 50 mcg 50 mcg PO DAILY #90 caps 01/28/24 01/28/24 Rx (2,000 unit) capsule fluticasone 100 mcg-salmeterol 50 See Rx Instructions .Route 01/28/24 01/28/24 Rx mcg/dose blistr powdr for .COMPLEX #60 blisters inhalation (Advair Diskus) fluticasone propionate 50 See Rx Instructions .Route 01/28/24 01/28/24 Rx mcg/actuation nasal .COMPLEX allergies #16 grams spray,suspension ipratropium 0.5 mg-albuterol 3 mg 3 ml inhalation Q4-6H PRN 01/28/24 01/28/24 Rx (2.5 mg base)/3 mL nebulization shortness of breath or wheezing soln #180 mL montelukast 10 mg tablet See Rx Instructions .Route 01/28/24 01/28/24 Rx .COMPLEX #90 tabs tizanidine 4 mg capsule 4 mg PO TID Pain 90 days #270 caps 01/28/24 01/28/24 Rx levothyroxine 100 mcg capsule 100 mcg PO DAILY #30 caps 01/29/24 Rx gabapentin 800 mg tablet 800 mg PO QID #12 tabs 02/20/24 Rx (Neurontin) hydrocodone 7.5 mg-acetaminophen 1 tab PO 5XDAY #15 tabs 02/20/24 Rx 325 mg tablet New Prescriptions to Start Prescriptions: Allergies Allergy/AdvReac Type Severity Reaction Status Date / Time Penicillins Allergy Intermediate I-HIVES Verified 01/28/24 09:12 Assessment and Plan *Assessment and plan (1) Lumbar radiculopathy: Status: Acute Category: Medical Code(s): M54.16 - Radiculopathy, lumbar region (2) DDD (degenerative disc disease), lumbar: Status: Acute Category: Medical Code(s): M51.369 - Other intervertebral disc degeneration, lumbar region without mention of lumbar back pain or lower extremity pain Plan We will continue her current medication regimen and refill her gabapentin and [place] and provide a 1 month supply of this medication. Patient will return to clinic in 1 month. Risks and benefits of the medication have been explained in detail to the patient. The patient does understand the risk of dependence on the medication when given over a prolonged period. Patient has been advised of risks of oversedation with the prescribed medication. Narcan has been offered to the paitent in the event of oversedation. Patient has been advised that a family member should also be educated regarding administration of Narcan. The patient has been advised to consult with his/her primary care provider and pharmacist regarding drug-drug interaction of medications currently prescribed. Patient has been prescribed a controlled substance after being counseled on the medication, medication safety, and possible side effects. Opioid contract was reviewed and signed by the patient, and that they have agreed to all of the terms set forth by our compliance program. A UDS is needed to verify patient's compliance with our office pain contract. This is ordered based off specific treatments related to chronic pain with the potential to abuse certain medications. Patient has been instructed to contact the clinic with any concerns before the next appointment. Dr. Watson has reviewed this note and agrees with this plan of care. This note was dictated using voice recognition software and make contain errors or omissions.
[2024-02-27 16:03] VITALS: BP 116/60; PULSE 75; RESP 16; O2SAT 94; BMI 25.7
== END 2024-02-27 23:59 | disposition home or self-care (01) ==
PROVIDERS: PCP Internal Medicine; Visit Provider Nurse Practitioner Family
DX: M51.16 Intervertebral disc disorders with radiculopathy, lumbar region (principal); F17.210 Nicotine dependence, cigarettes, uncomplicated; Z79.899 Other long term (current) drug therapy
CPT/HCPCS: 99212; G0463

== ENCOUNTER 2024-03-27 13:48 | Outpatient (POV) | payer MEDICAID, SELFPAY ==
--- NOTE | 2024-03-27 14:05 | A.OFFVIS_ITS ---
[facility] Disclaimer: The information contained in this section may have been updated after the patient was seen, as this information can be updated by other users. Medical History Breast cancer screening Colon cancer screening declined DDD (degenerative disc disease), lumbar Vitamin D deficiency HLD (hyperlipidemia) Osteopenia COPD exacerbation COPD (chronic obstructive pulmonary disease) GERD (gastroesophageal reflux disease) Hypothyroidism Social History Smoking Status: Current every day smoker tobacco type: cigarettes packs per day: 1 alcohol intake: never substance use type: denies use current occupational status: other Travel in the last 8 weeks: None PM Subjective & Objective Subjective Subjective:: Patient is a pleasant 64-year-old female who presents today for medication refill and follow-up. Today she rates her pain a 3 out of 10. She denies any new falls or injuries. She is currently prescribed [place] 7.5 mg 5 times a day and gabapentin 800 mg 4 times a day. She denies any side effects from these medications. She does state that her boyfriend is still proceeding forward with monitoring any progression of his cancer and does have a PET scan scheduled for the later the end of this month. Her Sky has been reviewed and is appropriate. Review of Systems: General: No recent weight changes, no fever, no sleep disturbances Respiratory: No cough, no shortness of air, no recurring pulmonary infections Cardiovascular/peripheral vascular: No chest pain, no palpitations, no edema, no shortness of breath Gastrointestinal: No new onset incontinence, normal bowel movements reported Genitourinary: No new onset incontinence Musculoskeletal: Low back pain Psychiatric: [Normal mood/affect] Neurological: [Denies weakness in extremities], [denies balance issues] Pain at rest (0-10 scale): 3 Objective Objective:: Physical Exam: General: Alert and oriented x3, no acute distress, pleasant and cooperative Lungs: Respirations even and unlabored, symmetrical chest expansion Eyes: PERRL Musculoskeletal: Flexion and extension of lumbar [spine] somewhat guarded secondary to pain, [antalgic gait noted] Neurological: Speech clear, no gross sensory deficit Has patient had previous pain injection?: No Conservative treatment options previously tried: Home exercise plan Length of treatment: Longer than 12 weeks Meds Home Medications and Allergies Home Medications ?Medication ?Instructions ?Recorded ?Confirmed ?Type albuterol sulfate 90 mcg/actuation See Rx Instructions .Route 02/15/23 02/27/24 Rx aerosol inhaler .COMPLEX Breathing problems #8.5 grams hydroxyzine HCl 25 mg tablet See Rx Instructions .Route 10/26/23 02/27/24 Rx .COMPLEX #90 tabs hydrocodone 7.5 mg-acetaminophen 1 tab PO 5XDAY #150 tabs 01/24/24 02/27/24 Rx 325 mg tablet alendronate 10 mg tablet 10 mg PO DAILY #60 tabs 01/28/24 02/27/24 Rx atorvastatin 40 mg tablet 40 mg PO DAILY #90 tabs 01/28/24 02/27/24 Rx ergocalciferol (vitamin D2) 50 mcg 50 mcg PO DAILY #90 caps 01/28/24 02/27/24 Rx (2,000 unit) capsule fluticasone 100 mcg-salmeterol 50 See Rx Instructions .Route 01/28/24 02/27/24 Rx mcg/dose blistr powdr for .COMPLEX #60 blisters inhalation (Advair Diskus) fluticasone propionate 50 See Rx Instructions .Route 01/28/24 02/27/24 Rx mcg/actuation nasal .COMPLEX allergies #16 grams spray,suspension ipratropium 0.5 mg-albuterol 3 mg 3 ml inhalation Q4-6H PRN 01/28/24 02/27/24 Rx (2.5 mg base)/3 mL nebulization shortness of breath or wheezing soln #180 mL montelukast 10 mg tablet See Rx Instructions .Route 01/28/24 02/27/24 Rx .COMPLEX #90 tabs tizanidine 4 mg capsule 4 mg PO TID Pain 90 days #270 caps 01/28/24 02/27/24 Rx levothyroxine 100 mcg capsule 100 mcg PO DAILY #30 caps 01/29/24 02/27/24 Rx gabapentin 800 mg tablet 800 mg PO QID #12 tabs 02/20/24 02/27/24 Rx (Neurontin) gabapentin 800 mg tablet 800 mg PO QID #120 tabs 02/27/24 Rx (Neurontin) hydrocodone 7.5 mg-acetaminophen 1 tab PO 5XDAY #150 tabs 02/27/24 Rx 325 mg tablet New Prescriptions to Start Prescriptions: Allergies Allergy/AdvReac Type Severity Reaction Status Date / Time Penicillins Allergy Intermediate I-HIVES Verified 01/28/24 09:12 Assessment and Plan *Assessment and plan (1) Lumbar radiculopathy: Status: Acute Category: Medical Code(s): M54.16 - Radiculopathy, lumbar region (2) DDD (degenerative disc disease), lumbar: Status: Acute Category: Medical Code(s): M51.369 - Other intervertebral disc degeneration, lumbar region without mention of lumbar back pain or lower extremity pain Plan I will refill the patient's [place] and gabapentin and provide a 1 month supply of these medications. Patient will return to clinic in 1 month for reevaluation of symptoms and plan of care. Risks and benefits of the medication have been explained in detail to the patient. The patient does understand the risk of dependence on the medication when given over a prolonged period. Patient has been advised of risks of oversedation with the prescribed medication. Narcan has been offered to the paitent in the event of oversedation. Patient has been advised that a family member should also be educated regarding administration of Narcan. The patient has been advised to consult with his/her primary care provider and pharmacist regarding drug-drug interaction of medications currently prescribed. Patient has been prescribed a controlled substance after being counseled on the medication, medication safety, and possible side effects. Opioid contract was reviewed and signed by the patient, and that they have agreed to all of the terms set forth by our compliance program. A UDS is needed to verify patient's compliance with our office pain contract. This is ordered based off specific treatments related to chronic pain with the potential to abuse certain medications. Patient has been instructed to contact the clinic with any concerns before the next appointment. Dr. Watson has reviewed this note and agrees with this plan of care. This note was dictated using voice recognition software and make contain errors or omissions.
[2024-03-27 14:18] VITALS: BP 144/69; PULSE 84; RESP 18; O2SAT 100; BMI 25.0
== END 2024-03-27 23:59 | disposition home or self-care (01) ==
PROVIDERS: PCP Internal Medicine; Visit Provider Nurse Practitioner Family
DX: M51.16 Intervertebral disc disorders with radiculopathy, lumbar region (principal); F17.210 Nicotine dependence, cigarettes, uncomplicated; Z79.899 Other long term (current) drug therapy
CPT/HCPCS: 99212; G0463

== ENCOUNTER 2024-04-24 14:13 | Outpatient (POV) | payer MEDICAID, SELFPAY ==
[2024-04-24 14:15] VITALS: BP 121/47; PULSE 72; RESP 18; O2SAT 91; BMI 25.4
--- NOTE | 2024-04-24 14:27 | EXP.PAIN.SOA ---
[facility] Disclaimer: The information contained in this section may have been updated after the patient was seen, as this information can be updated by other users. Medical History Breast cancer screening Colon cancer screening declined DDD (degenerative disc disease), lumbar Vitamin D deficiency HLD (hyperlipidemia) Osteopenia COPD exacerbation COPD (chronic obstructive pulmonary disease) GERD (gastroesophageal reflux disease) Hypothyroidism Family History (Updated 04/24/24 @ 14:28 by Sandra Peres RN) Other Unknown family medical history Social History Smoking Status: Current every day smoker tobacco type: cigarettes packs per day: 1 alcohol intake: never substance use type: denies use current occupational status: other Travel in the last 8 weeks: None Have you lived/traveled outside [place] in past 30 days?: No Contact w/someone who lives/traveled outside [place] past 30 days?: No Exposure to someone with infectious disease in past 14 days?: No Do you have a fever (greater than 100.4 F or 38 C)?: No Have you tested positive for COVID-19: No Exposed to someone with COVID-19 in past 14 days?: No Do you have a sore throat?: No Do you have a cough?: No Do you have any weakness?: No Do you have any diarrhea?: No Are you experiencing any unusual bleeding?: No Do you have any muscle aches/pain?: No Do you have any abdominal pain?: No Are you experiencing loss of taste or smell?: No PM Subjective & Objective Subjective Subjective:: Patient is a pleasant 64-year-old female who presents today for medication refill. Today she rates her pain a 3 out of 10. She denies any other changes from her last appointment. She does state that she is having a lot more back pain today and believes that is where she had to take her boyfriend to and she was pushing around in the wheelchair all day. She states that his PET scan did not go as well as they hoped and they had changed his chemo treatment down to the pills. She is hoping that this will work. She is currently on [place] 7.5 mg 5 times a day and gabapentin 800 mg 4 times a day from our office. She denies any side effects. Her Sky has been reviewed and is appropriate. Review of Systems: General: No recent weight changes, no fever, no sleep disturbances Respiratory: No cough, no shortness of air, no recurring pulmonary infections Cardiovascular/peripheral vascular: No chest pain, no palpitations, no edema, no shortness of breath Gastrointestinal: No new onset incontinence, normal bowel movements reported Genitourinary: No new onset incontinence Musculoskeletal: Chronic low back pain Psychiatric: [Normal mood/affect] Neurological: [Denies weakness in extremities], [denies balance issues] Pain at rest (0-10 scale): 3 Objective Objective:: Physical Exam: General: Alert and oriented x3, no acute distress, pleasant and cooperative Lungs: Respirations even and unlabored, symmetrical chest expansion Eyes: PERRL Musculoskeletal: Flexion and extension of lumbar [spine] somewhat guarded secondary to pain, [antalgic gait noted] Neurological: Speech clear, no gross sensory deficit Has patient had previous pain injection?: No Conservative treatment options previously tried: Prescription medications Length of treatment: Longer than 12 weeks Meds Home Medications and Allergies Home Medications ?Medication ?Instructions ?Recorded ?Confirmed ?Type albuterol sulfate 90 mcg/actuation See Rx Instructions .Route 02/15/23 04/24/24 Rx aerosol inhaler .COMPLEX Breathing problems #8.5 grams hydroxyzine HCl 25 mg tablet See Rx Instructions .Route 10/26/23 04/24/24 Rx .COMPLEX #90 tabs alendronate 10 mg tablet 10 mg PO DAILY #60 tabs 01/28/24 04/24/24 Rx atorvastatin 40 mg tablet 40 mg PO DAILY #90 tabs 01/28/24 04/24/24 Rx ergocalciferol (vitamin D2) 50 mcg 50 mcg PO DAILY #90 caps 01/28/24 04/24/24 Rx (2,000 unit) capsule fluticasone 100 mcg-salmeterol 50 See Rx Instructions .Route 01/28/24 04/24/24 Rx mcg/dose blistr powdr for .COMPLEX #60 blisters inhalation (Advair Diskus) fluticasone propionate 50 See Rx Instructions .Route 01/28/24 04/24/24 Rx mcg/actuation nasal .COMPLEX allergies #16 grams spray,suspension ipratropium 0.5 mg-albuterol 3 mg 3 ml inhalation Q4-6H PRN 01/28/24 04/24/24 Rx (2.5 mg base)/3 mL nebulization shortness of breath or wheezing soln #180 mL montelukast 10 mg tablet See Rx Instructions .Route 01/28/24 04/24/24 Rx .COMPLEX #90 tabs tizanidine 4 mg capsule 4 mg PO TID Pain 90 days #270 caps 01/28/24 04/24/24 Rx levothyroxine 100 mcg capsule 100 mcg PO DAILY #30 caps 01/29/24 04/24/24 Rx gabapentin 800 mg tablet 800 mg PO QID #12 tabs 02/20/24 04/24/24 Rx (Neurontin) hydrocodone 7.5 mg-acetaminophen 1 tab PO 5XDAY #150 tabs 03/27/24 04/24/24 Rx 325 mg tablet New Prescriptions to Start Prescriptions: Allergies Allergy/AdvReac Type Severity Reaction Status Date / Time Penicillins Allergy Intermediate I-HIVES Verified 01/28/24 09:12 Assessment and Plan *Assessment and plan (1) Lumbar radiculopathy: Status: Acute Category: Medical Code(s): M54.16 - Radiculopathy, lumbar region (2) DDD (degenerative disc disease), lumbar: Status: Acute Category: Medical Code(s): M51.369 - Other intervertebral disc degeneration, lumbar region without mention of lumbar back pain or lower extremity pain Plan I will make sure she has refill on her gabapentin and provide a 1 month supply of her [place]. I did discuss with her that if she continues to have worsening back pain there are options we could always try. We will follow-up with her on future appointments. Patient will return to clinic in 1 month. Risks and benefits of the medication have been explained in detail to the patient. The patient does understand the risk of dependence on the medication when given over a prolonged period. Patient has been advised of risks of oversedation with the prescribed medication. Narcan has been offered to the paitent in the event of oversedation. Patient has been advised that a family member should also be educated regarding administration of Narcan. The patient has been advised to consult with his/her primary care provider and pharmacist regarding drug-drug interaction of medications currently prescribed. Patient has been prescribed a controlled substance after being counseled on the medication, medication safety, and possible side effects. Opioid contract was reviewed and signed by the patient, and that they have agreed to all of the terms set forth by our compliance program. A UDS is needed to verify patient's compliance with our office pain contract. This is ordered based off specific treatments related to chronic pain with the potential to abuse certain medications. Patient has been instructed to contact the clinic with any concerns before the next appointment. Dr. Watson has reviewed this note and agrees with this plan of care. This note was dictated using voice recognition software and make contain errors or omissions.
== END 2024-04-24 23:59 | disposition home or self-care (01) ==
PROVIDERS: PCP Internal Medicine; Visit Provider Nurse Practitioner Family
DX: M51.16 Intervertebral disc disorders with radiculopathy, lumbar region (principal); F17.210 Nicotine dependence, cigarettes, uncomplicated
CPT/HCPCS: 99212; G0463

== ENCOUNTER 2024-05-22 13:44 | Outpatient (POV) | payer MEDICAID, SELFPAY ==
--- NOTE | 2024-05-22 14:09 | EXP.PAIN.SOA ---
[facility] Disclaimer: The information contained in this section may have been updated after the patient was seen, as this information can be updated by other users. Medical History (Updated 05/12/24 @ 14:55 by Francis Perez MD) Lung cancer screening declined by patient Breast cancer screening declined Breast cancer screening Colon cancer screening declined DDD (degenerative disc disease), lumbar Vitamin D deficiency HLD (hyperlipidemia) Osteopenia COPD exacerbation COPD (chronic obstructive pulmonary disease) GERD (gastroesophageal reflux disease) Hypothyroidism Family History Other Unknown family medical history Social History Smoking Status: Current every day smoker tobacco type: cigarettes packs per day: 1 alcohol intake: never substance use type: denies use current occupational status: other Travel in the last 8 weeks: None Have you lived/traveled outside [place] in past 30 days?: No Contact w/someone who lives/traveled outside [place] past 30 days?: No Exposure to someone with infectious disease in past 14 days?: No Do you have a fever (greater than 100.4 F or 38 C)?: No Have you tested positive for COVID-19: No Exposed to someone with COVID-19 in past 14 days?: No Do you have a sore throat?: No Do you have a cough?: No Do you have any weakness?: No Do you have any diarrhea?: No Are you experiencing any unusual bleeding?: No Do you have any muscle aches/pain?: No Do you have any abdominal pain?: No Are you experiencing loss of taste or smell?: No PM Subjective & Objective Subjective Subjective:: Patient is a pleasant 64-year-old female who presents today for 1 month follow-up and medication refill. Today she rates her pain a 4 out of 10. Patient denies any new falls or injury however does state that she has been under the weather with a stomach bug and is just now starting to feel a little bit more like herself. Patient is currently managed with [place] 7.5 mg 5 times a day and gabapentin 800 mg 4 times a day. She denies any side effects. Her Sky has been reviewed and is appropriate. Review of Systems: General: No recent weight changes, no fever, no sleep disturbances Respiratory: No cough, no shortness of air, no recurring pulmonary infections Cardiovascular/peripheral vascular: No chest pain, no palpitations, no edema, no shortness of breath Gastrointestinal: No new onset incontinence, normal bowel movements reported Genitourinary: No new onset incontinence Musculoskeletal: Low back pain Psychiatric: [Normal mood/affect] Neurological: [Denies weakness in extremities], [denies balance issues] Pain at rest (0-10 scale): 4 Objective Objective:: Physical Exam: General: Alert and oriented x3, no acute distress, pleasant and cooperative Lungs: Respirations even and unlabored, symmetrical chest expansion Eyes: PERRL Musculoskeletal: Flexion and extension of lumbar [spine] somewhat guarded secondary to pain, [antalgic gait noted] Neurological: Speech clear, no gross sensory deficit Has patient had previous pain injection?: No Conservative treatment options previously tried: Prescription medications Length of treatment: Longer than 12 weeks Meds Home Medications and Allergies Home Medications ?Medication ?Instructions ?Recorded ?Confirmed ?Type albuterol sulfate 90 mcg/actuation See Rx Instructions .Route 02/15/23 05/12/24 Rx aerosol inhaler .COMPLEX Breathing problems #8.5 grams atorvastatin 40 mg tablet 40 mg PO DAILY #90 tabs 01/28/24 05/12/24 Rx ergocalciferol (vitamin D2) 50 mcg 50 mcg PO DAILY #90 caps 01/28/24 05/12/24 Rx (2,000 unit) capsule fluticasone 100 mcg-salmeterol 50 See Rx Instructions .Route 01/28/24 05/12/24 Rx mcg/dose blistr powdr for .COMPLEX #60 blisters inhalation (Advair Diskus) fluticasone propionate 50 See Rx Instructions .Route 01/28/24 05/12/24 Rx mcg/actuation nasal .COMPLEX allergies #16 grams spray,suspension ipratropium 0.5 mg-albuterol 3 mg 3 ml inhalation Q4-6H PRN 01/28/24 05/12/24 Rx (2.5 mg base)/3 mL nebulization shortness of breath or wheezing soln #180 mL tizanidine 4 mg capsule 4 mg PO TID Pain 90 days #270 caps 01/28/24 05/12/24 Rx gabapentin 800 mg tablet 800 mg PO QID #120 tabs 04/24/24 05/12/24 Rx (Neurontin) hydrocodone 7.5 mg-acetaminophen 1 tab PO 5XDAY #150 tabs 04/24/24 05/12/24 Rx 325 mg tablet levothyroxine 100 mcg capsule 100 mcg PO DAILY #30 caps 04/28/24 05/12/24 Rx montelukast 10 mg tablet See Rx Instructions .Route 04/28/24 05/12/24 Rx .COMPLEX #90 tabs alendronate 70 mg tablet 70 mg PO WEEKLY #5 tabs 05/12/24 05/12/24 Rx hydroxyzine HCl 50 mg tablet 50 mg PO HS #30 tabs 05/12/24 05/12/24 Rx New Prescriptions to Start Prescriptions: Allergies Allergy/AdvReac Type Severity Reaction Status Date / Time Penicillins Allergy Intermediate I-HIVES Verified 05/12/24 13:39 Assessment and Plan *Assessment and plan (1) DDD (degenerative disc disease), lumbar: Status: Acute Category: Medical Code(s): M51.369 - Other intervertebral disc degeneration, lumbar region without mention of lumbar back pain or lower extremity pain (2) Lumbar radiculopathy: Status: Acute Category: Medical Code(s): M54.16 - Radiculopathy, lumbar region Plan I will refill her [place] and her gabapentin and provide a 1 month supply of this medication. Patient will return to clinic in 1 month. Risks and benefits of the medication have been explained in detail to the patient. The patient does understand the risk of dependence on the medication when given over a prolonged period. Patient has been advised of risks of oversedation with the prescribed medication. Narcan has been offered to the paitent in the event of oversedation. Patient has been advised that a family member should also be educated regarding administration of Narcan. The patient has been advised to consult with his/her primary care provider and pharmacist regarding drug-drug interaction of medications currently prescribed. Patient has been prescribed a controlled substance after being counseled on the medication, medication safety, and possible side effects. Opioid contract was reviewed and signed by the patient, and that they have agreed to all of the terms set forth by our compliance program. A UDS is needed to verify patient's compliance with our office pain contract. This is ordered based off specific treatments related to chronic pain with the potential to abuse certain medications. Patient has been instructed to contact the clinic with any concerns before the next appointment. Dr. Watson has reviewed this note and agrees with this plan of care. This note was dictated using voice recognition software and make contain errors or omissions.
[2024-05-22 14:16] VITALS: BP 128/63; PULSE 79; RESP 14; O2SAT 94; BMI 25.7
== END 2024-05-22 23:59 | disposition home or self-care (01) ==
PROVIDERS: PCP Internal Medicine; Visit Provider Nurse Practitioner Family
DX: M51.16 Intervertebral disc disorders with radiculopathy, lumbar region (principal); F17.210 Nicotine dependence, cigarettes, uncomplicated
CPT/HCPCS: 99212; G0463

== ENCOUNTER 2024-06-18 13:16 | Outpatient (POV) | payer MEDICAID, SELFPAY ==
[2024-06-18 13:33] VITALS: BP 109/65; PULSE 68; RESP 14; O2SAT 93; BMI 25.0
--- NOTE | 2024-06-18 13:48 | A.OFFVIS_ITS ---
[facility] Disclaimer: The information contained in this section may have been updated after the patient was seen, as this information can be updated by other users. Medical History Lung cancer screening declined by patient Breast cancer screening declined Breast cancer screening Colon cancer screening declined DDD (degenerative disc disease), lumbar Vitamin D deficiency HLD (hyperlipidemia) Osteopenia COPD exacerbation COPD (chronic obstructive pulmonary disease) GERD (gastroesophageal reflux disease) Hypothyroidism Family History Other Unknown family medical history Social History Smoking Status: Current every day smoker tobacco type: cigarettes packs per day: 1 alcohol intake: never substance use type: denies use current occupational status: other Travel in the last 8 weeks?: None PM Subjective & Objective Subjective Subjective:: Patient is a pleasant 64-year-old female who presents today for medication refill. Today she rates her pain as 3 out of 10. She denies new falls. She is currently managed with [place] 7.5 mg 5 times a day and gabapentin 800 mg 4 times a day. She denies any side effects to these medications or changes to her pharmacy. Her Sky has been reviewed and is appropriate. Review of Systems: General: No recent weight changes, no fever, no sleep disturbances Respiratory: No cough, no shortness of air, no recurring pulmonary infections Cardiovascular/peripheral vascular: No chest pain, no palpitations, no edema, no shortness of breath Gastrointestinal: No new onset incontinence, normal bowel movements reported Genitourinary: No new onset incontinence Musculoskeletal: Low back pain Psychiatric: [Normal mood/affect] Neurological: [Denies weakness in extremities], [denies balance issues] Pain at rest (0-10 scale): 3 Objective Objective:: Physical Exam: General: Alert and oriented x3, no acute distress, pleasant and cooperative Lungs: Respirations even and unlabored, symmetrical chest expansion Eyes: PERRL Musculoskeletal: Flexion and extension of lumbar [spine] somewhat guarded secondary to pain, [antalgic gait noted] Neurological: Speech clear, no gross sensory deficit Has patient had previous pain injection?: No Conservative treatment options previously tried: Home exercise plan Length of treatment: Longer than 12 weeks Meds Home Medications and Allergies Home Medications ?Medication ?Instructions ?Recorded ?Confirmed ?Type albuterol sulfate 90 mcg/actuation See Rx Instructions .Route 02/15/23 06/18/24 Rx aerosol inhaler .COMPLEX Breathing problems #8.5 grams atorvastatin 40 mg tablet 40 mg PO DAILY #90 tabs 01/28/24 06/18/24 Rx ergocalciferol (vitamin D2) 50 mcg 50 mcg PO DAILY #90 caps 01/28/24 06/18/24 Rx (2,000 unit) capsule fluticasone 100 mcg-salmeterol 50 See Rx Instructions .Route 01/28/24 06/18/24 Rx mcg/dose blistr powdr for .COMPLEX #60 blisters inhalation (Advair Diskus) fluticasone propionate 50 See Rx Instructions .Route 01/28/24 06/18/24 Rx mcg/actuation nasal .COMPLEX allergies #16 grams spray,suspension ipratropium 0.5 mg-albuterol 3 mg 3 ml inhalation Q4-6H PRN 01/28/24 06/18/24 Rx (2.5 mg base)/3 mL nebulization shortness of breath or wheezing soln #180 mL tizanidine 4 mg capsule 4 mg PO TID Pain 90 days #270 caps 01/28/24 06/18/24 Rx gabapentin 800 mg tablet 800 mg PO QID #120 tabs 04/24/24 06/18/24 Rx (Neurontin) levothyroxine 100 mcg capsule 100 mcg PO DAILY #30 caps 04/28/24 06/18/24 Rx montelukast 10 mg tablet See Rx Instructions .Route 04/28/24 06/18/24 Rx .COMPLEX #90 tabs alendronate 70 mg tablet 70 mg PO WEEKLY #5 tabs 05/12/24 06/18/24 Rx hydroxyzine HCl 50 mg tablet 50 mg PO HS #30 tabs 05/12/24 06/18/24 Rx hydrocodone 7.5 mg-acetaminophen 1 tab PO 5XDAY #150 tabs 05/22/24 06/18/24 Rx 325 mg tablet New Prescriptions to Start Prescriptions: Allergies Allergy/AdvReac Type Severity Reaction Status Date / Time Penicillins Allergy Intermediate I-HIVES Verified 05/12/24 13:39 Assessment and Plan *Assessment and plan (1) DDD (degenerative disc disease), lumbar: Status: Acute Category: Medical Code(s): M51.369 - Other intervertebral disc degeneration, lumbar region without mention of lumbar back pain or lower extremity pain Plan I will refill the patient's [place] and gabapentin and provide a 1 month supply of these medications. Patient will return to clinic in 1 month for reevaluation of symptoms and plan of care. Risks and benefits of the medication have been explained in detail to the patient. The patient does understand the risk of dependence on the medication when given over a prolonged period. Patient has been advised of risks of oversedation with the prescribed medication. Narcan has been offered to the paitent in the event of oversedation. Patient has been advised that a family member should also be educated regarding administration of Narcan. The patient has been advised to consult with his/her primary care provider and pharmacist regarding drug-drug interaction of medications currently prescribed. Patient has been prescribed a controlled substance after being counseled on the medication, medication safety, and possible side effects. Opioid contract was reviewed and signed by the patient, and that they have agreed to all of the terms set forth by our compliance program. A UDS is needed to verify patient's compliance with our office pain contract. This is ordered based off specific treatments related to chronic pain with the potential to abuse certain medications. Patient has been instructed to contact the clinic with any concerns before the next appointment. Dr. Watson has reviewed this note and agrees with this plan of care. This note was dictated using voice recognition software and make contain errors or omissions.
== END 2024-06-18 23:59 | disposition home or self-care (01) ==
PROVIDERS: PCP Family Medicine; Visit Provider Nurse Practitioner Family
DX: M51.369 Other intervertebral disc degeneration, lumbar region without mention of lumbar back pain or lower extremity pain (principal); F17.210 Nicotine dependence, cigarettes, uncomplicated
CPT/HCPCS: 99212; G0463

== ENCOUNTER 2024-08-01 13:18 | Outpatient (POV) | payer MEDICAID, SELFPAY ==
--- NOTE | 2024-08-01 13:19 | EXP.PAIN.SOA ---
[facility] Disclaimer: The information contained in this section may have been updated after the patient was seen, as this information can be updated by other users. Medical History Lung cancer screening declined by patient Breast cancer screening declined Breast cancer screening Colon cancer screening declined DDD (degenerative disc disease), lumbar Vitamin D deficiency HLD (hyperlipidemia) Osteopenia COPD exacerbation COPD (chronic obstructive pulmonary disease) GERD (gastroesophageal reflux disease) Hypothyroidism Family History Other Unknown family medical history Social History Smoking Status: Current every day smoker tobacco type: cigarettes packs per day: 1 alcohol intake: never substance use type: denies use current occupational status: other Travel in the last 8 weeks?: None Have you lived/traveled outside US in past 30 days?: No Contact w/someone who lives/traveled outside US past 30 days?: No Exposure to someone with infectious disease in past 14 days?: No Do you have a fever (greater than 100.4 F or 38 C)?: No Have you tested positive for COVID-19?: No Exposed to someone with COVID-19 in past 14 days?: No Do you have a sore throat?: No Do you have a cough?: No Do you have any weakness?: No Do you have any diarrhea?: No Are you experiencing any unusual bleeding?: No Do you have any muscle aches/pain?: No Do you have any abdominal pain?: No Are you experiencing loss of taste or smell?: No PM Subjective & Objective Subjective Subjective:: Patient is a pleasant 64-year-old female who presents today for 1 month follow-up and medication refill. She rates her pain a 3 out of 10. Patient is currently managed with [place] 7.5 mg 5 times a day from our office and gabapentin 800 mg 4 times a day. She denies any side effects and states she is doing well with this medications. She does state that they ended up taking her boyfriend off the chemo pills as they were not working and put him on a different type medication. Her Sky has been reviewed and is appropriate. Review of Systems: General: No recent weight changes, no fever, no sleep disturbances Respiratory: No cough, no shortness of air, no recurring pulmonary infections Cardiovascular/peripheral vascular: No chest pain, no palpitations, no edema, no shortness of breath Gastrointestinal: No new onset incontinence, normal bowel movements reported Genitourinary: No new onset incontinence Musculoskeletal: [Chronic back pain psychiatric: [Normal mood/affect] Neurological: [Denies weakness in extremities], [denies balance issues] Pain at rest (0-10 scale): 3 Objective Objective:: Physical Exam: General: Alert and oriented x3, no acute distress, pleasant and cooperative Lungs: Respirations even and unlabored, symmetrical chest expansion Eyes: PERRL Musculoskeletal: Flexion and extension of lumbar [spine] somewhat guarded secondary to pain, [antalgic gait noted] Neurological: Speech clear, no gross sensory deficit Has patient had previous pain injection?: No Conservative treatment options previously tried: Prescription medications Length of treatment: Longer than 12 weeks Meds Home Medications and Allergies Home Medications ?Medication ?Instructions ?Recorded ?Confirmed ?Type albuterol sulfate 90 mcg/actuation See Rx Instructions .Route 02/15/23 06/18/24 Rx aerosol inhaler .COMPLEX Breathing problems #8.5 grams atorvastatin 40 mg tablet 40 mg PO DAILY #90 tabs 01/28/24 06/18/24 Rx ergocalciferol (vitamin D2) 50 mcg 50 mcg PO DAILY #90 caps 01/28/24 06/18/24 Rx (2,000 unit) capsule fluticasone 100 mcg-salmeterol 50 See Rx Instructions .Route 01/28/24 06/18/24 Rx mcg/dose blistr powdr for .COMPLEX #60 blisters inhalation (Advair Diskus) fluticasone propionate 50 See Rx Instructions .Route 01/28/24 06/18/24 Rx mcg/actuation nasal .COMPLEX allergies #16 grams spray,suspension ipratropium 0.5 mg-albuterol 3 mg 3 ml inhalation Q4-6H PRN 01/28/24 06/18/24 Rx (2.5 mg base)/3 mL nebulization shortness of breath or wheezing soln #180 mL tizanidine 4 mg capsule 4 mg PO TID Pain 90 days #270 caps 01/28/24 06/18/24 Rx montelukast 10 mg tablet See Rx Instructions .Route 04/28/24 06/18/24 Rx .COMPLEX #90 tabs alendronate 70 mg tablet 70 mg PO WEEKLY #5 tabs 05/12/24 06/18/24 Rx hydroxyzine HCl 50 mg tablet 50 mg PO HS #30 tabs 05/12/24 06/18/24 Rx gabapentin 800 mg tablet 800 mg PO QID #120 tabs 07/23/24 Rx (Neurontin) hydrocodone 7.5 mg-acetaminophen 1 tab PO 5XDAY #40 tabs 07/23/24 Rx 325 mg tablet levothyroxine 100 mcg capsule 100 mcg PO DAILY #30 caps 07/25/24 Rx hydrocodone 7.5 mg-acetaminophen 1 tab PO 5XDAY #150 tabs 08/01/24 Rx 325 mg tablet New Prescriptions to Start Prescriptions: hydrocodone-acetaminophen BenedictoEmily Allergies Allergy/AdvReac Type Severity Reaction Status Date / Time Penicillins Allergy Intermediate I-HIVES Verified 05/12/24 13:39 Assessment and Plan *Assessment and plan (1) Lumbar radiculopathy: Status: Acute Category: Medical Code(s): M54.16 - Radiculopathy, lumbar region (2) DDD (degenerative disc disease), lumbar: Status: Acute Category: Medical Code(s): M51.369 - Other intervertebral disc degeneration, lumbar region without mention of lumbar back pain or lower extremity pain Plan I will refill her [place] and provide a 1 month supply of this medication. We will also make sure that she does have refills on her gabapentin. Patient will return to clinic in 1 month for reevaluation of symptoms and plan of care. Risks and benefits of the medication have been explained in detail to the patient. The patient does understand the risk of dependence on the medication when given over a prolonged period. Patient has been advised of risks of oversedation with the prescribed medication. Narcan has been offered to the paitent in the event of oversedation. Patient has been advised that a family member should also be educated regarding administration of Narcan. The patient has been advised to consult with his/her primary care provider and pharmacist regarding drug-drug interaction of medications currently prescribed. Patient has been prescribed a controlled substance after being counseled on the medication, medication safety, and possible side effects. Opioid contract was reviewed and signed by the patient, and that they have agreed to all of the terms set forth by our compliance program. A UDS is needed to verify patient's compliance with our office pain contract. This is ordered based off specific treatments related to chronic pain with the potential to abuse certain medications. Patient has been instructed to contact the clinic with any concerns before the next appointment. Dr. Watson has reviewed this note and agrees with this plan of care. This note was dictated using voice recognition software and make contain errors or omissions.
--- OUTSIDE RECORDS SUMMARY | 2024-08-01 13:20 | XMS_ITS | Clinical Summary ---
Author Organization Healthcare Address [address] [id number] Care Team Providers Care Director Operations Name Role Phone Earl Maki MD Primary Care Provider + [phone] Family History Medical History Relation Name Comments [...] of Treatment Not on file Care Teams Director Operations Relationship Specialty Start Date End Date Earl Maik MD [address] [place] [id number] PCP - General 06/25/20
--- OUTSIDE RECORDS SUMMARY | 2024-08-01 13:20 | XMS_ITS | Data Portability ---
Author Organization [facility] [employer] [facility] Address [address] [place] [address] Assessment No assessment recorded. Plan of Treatment Reminders Order Date Submit Date Provider Last Modified By Organization Details Last Modified Time Details Appointments None record ed. Lab None record ed. Referral None record ed. Procedures None record ed. Surgeries None record ed. Imaging None record ed. Medication Orders None record ed. Patient TargetsNo targets recorded. Patient InstructionsNo instructions recorded. Reason for Referral None Reported. Problems Name Problem SNOMED Code Status Onset Date Resolution Date Notes Provider Name and Address Organization Details Recorded Time Acute sinusiti s 96544980 Completed 201608/01/2016 Problem Code: J01.90; Problem Code Type: ICD-10; Not Available [facility] 2 22:26:51 Contact dermatit is caused by plants [id number] Completed 201609/16/2016 Problem Code: L25.5; Problem Code Type: ICD-10; Not Available [facility] 2 22:26:51 Allergic contact dermatit is caused by plant material [id number] Completed 201609/16/2016 Problem Code: L23.7; Problem Code Type: ICD-10; Not Available [facility] 2 22:26:51 Contact dermatit is due to plants, except food Completed 201609/16/2016 Problem Code: 692.6; Problem Code Type: ICD-9; Not Available [facility] 22:26:51 Problem Notes None recorded. Medical Equipment None Reported. Allergies Allergen ID Allergen Name Allergen Category Reaction Reaction Severity Criticality Documentation Date Start Date Code Code System Note Provider Name and Address Organization Details Recorded Time 30749 Product containin g penicilli n (product) medicatio n Not available Not available Not available 10/18/2021 11003 8001 SNOMED Aller gyCod e: ''; Aller gyNam e: 'Peni cilli ns'; Aller gyCon ceptT ype: ''; Not Available [facility] 2 22:54:50 Medications Name Sig Start Date Stop Date Status Note LastModified by Organization Details LastModified Time amantadine HCl 100 mg tablet active Not Available Not Available Not Available atorvastati n 40 mg tablet TAKE 1 TABLET 1 TIME EACH DAY active Not Available Not Available No t Available gabapentin 600 mg tablet one po bid 2016 active Not Available Not Available Not Avai lable doxycycline hyclate 100 mg capsule TAKE 1 CAPSULE 2 TIMES EACH DAY FOR SKIN INFECTION active Not Available Not Available No t Available atorvastati n 20 mg tablet TAKE 1 TABLET 1 TIME EACH DAY FOR CHOLESTER OL active Not Available Not Available No t Available ipratropium 0.5 mg-albutero l 3 mg (2.5 mg base)/3 mL nebulizatio n soln INHALE CONTENTS OF 1 VIAL USING A NEBULIZER EVERY 4 TO 6 HOURS NEEDED FOR SHORTNESS OF BREATH OR WHEEZING active Not Available Not Available No t Available atorvastati n 10 mg tablet TAKE 1 TABLET 1 TIME EACH DAY IN THE EVENING active Not Available Not Available No t Available tizanidine 4 mg tablet TAKE 1 TABLET 2 TIMES EACH DAY FOR PAIN active Not Available Not Available No t Available Advair Diskus 100 mcg-50 mcg/dose powder for inhalation INHALE 1 DOSE 2 TIMES EACH DAY active Not Available Not Available No t Available dextrometho kristie enesin 10 mg-100 mg/5 mL oral syrup Take 1 teaspoon by mouth q4h prn for cough 09/16 completed Not Available Not Available Not Available triamcinolo ne acetonide 0.1 % topical cream APPLY A THIN FILM TO THE AFFECTED AREA OF SKIN 2 TIMES EACH DAY active Not Available Not Available No t Available levothyroxi ne 88 mcg tablet TAKE 1 TABLET 1 TIME EACH DAY active Not Available Not Available No t Available gabapentin 800 mg tablet TAKE ONE TABLET BY MOUTH FOUR TIMES DAILY FOR nerve pain MAY CAUSE DROWSINES S active Not Available Not Available No t Available hydrocodone 7.5 mg-acetamin ophen 325 mg tablet TAKE 1 TABLET 5 TIMES EACH DAY active Not Available Not Available No t Available pantoprazol e 40 mg tablet,lidia yed release Take 1 tablet(s) by mouth daily 2016 active Not Available Not Available Not Avai lable nystatin 100,000 unit/gram topical cream APPLY A THIN FILM TO THE AFFECTED AREA OF SKIN 2 TIMES EACH DAY FOR YEAST INFECTION active Not Available Not Available No t Available montelukast 10 mg tablet TAKE 1 TABLET 1 TIME EACH DAY active Not Available Not Available No t Available hydroxyzine HCl 25 mg tablet TAKE 1 TABLET 1 TIME EACH DAY AT BEDTIME FOR ITCHING AND SLEEP active Not Available Not Available No t Available cefdinir 300 mg capsule 2 capsules po after the evening meal, once a day 09/16 completed Not Available Not Available Not Available fluticasone propionate 50 mcg/actuati on nasal spray,suspe nsion SPRAY 2 TIMES IN EACH NOSTRIL 1 TIME EACH DAY active Not Available Not Available No t Available Ventolin HFA 90 mcg/actuati on aerosol inhaler INHALE 2 PUFFS 3 TIMES EACH DAY NEEDED FOR SHORTNESS OF BREATH OR WHEEZING active Not Available Not Available No t Available Vitamin D3 25 mcg (1,000 unit) capsule TAKE 2 CAPSULES 1 TIME EACH DAY active Not Available Not Available No t Available cholecalcif james (vitamin D3) 1,250 mcg (50,000 unit) capsule TAKE 1 CAPSULE 1 TIME EACH WEEK active Not Available Not Available No t Available Vitals None Recorded Social History None recorded. Functional Status None recorded. Mental Status None recorded. Family History Nothing Reported Notes:*Procedure Description : Documented family medical history in mother*Relative: Mother *Procedure Description: Documented family medical history in father*Relative: Father *Procedure Description: Family medical history unremarkable*Relative: Unspecified Relation *Problem: Relative: ''; Medical History Condition Response Hypothyroidism Y Gynecological HistoryNo gynecological history recorded. Obstetrics History GPAL:G 0 P 0 0 0 0 Immunizations Vaccine Type Date Status Note Provider Nam e and Address Organization Details Recorded Time Influenza, split virus, trivalent, PF 12/24/2023 completed Dai Vernon APRN [address] [place], [address], [facility] [employer] 12/30/2023 16:09:17 Past Encounters Encounter ID Performer Location Encounter Start Date Encounter Closed Date Diagnosis/Indication Diagnosis SNOMED-CT Code Diagnosis ICD10 Code Diagnosis Note [id number] Dai Vernon APRN [address] [address] 12/24/2023 16:05:38 12/24/2023 16:17:21 Administration of influenza vaccine [id number] Z23 Health Concerns Section Related Observation LastModified by Organization Detai ls LastModified Time None Recorded Concern Status LastModified by Organization Details LastModified Time None Recorded Advance Directives Directive None Recorded Payers Insurance Date Sequence Insurance Name Policy Number Policy Glez Covered Member ID Glez Member ID Guarantor Name 12/31/2023 1 [facility] (MEDICAID HMO) Rina Burciaga [id number] Rina Burciaga OBGyn Episode No OBEpisode recorded.
[2024-08-01 13:25] VITALS: BP 108/60; PULSE 71; RESP 14; O2SAT 92; BMI 25.7
== END 2024-08-01 23:59 | disposition home or self-care (01) ==
PROVIDERS: PCP Family Medicine; Visit Provider Nurse Practitioner Family
DX: M51.16 Intervertebral disc disorders with radiculopathy, lumbar region (principal); Z79.891 Long term (current) use of opiate analgesic; Z79.899 Other long term (current) drug therapy
CPT/HCPCS: 99212; G0463

== ENCOUNTER 2024-08-28 14:39 | Outpatient (POV) | payer MEDICAID, SELFPAY ==
[2024-08-28 14:54] VITALS: BP 118/60; PULSE 68; RESP 18; O2SAT 97; BMI 25.0
--- OUTSIDE RECORDS SUMMARY | 2024-08-28 15:05 | XMS_ITS | Data Portability ---
Author Organization [place] [employer] [facility] Address [address] [place] [address] Assessment No assessment recorded. Plan of Treatment [...] Organization Details Recorded Time Acute sinusiti s [id number] Completed 201608/01/2016 Problem Code: J01.90; Problem Code Type: ICD-10; Not Available [facility] 2 22:26:51 Contact dermatit is caused by plants [id number] Completed 201609/16/2016 Problem Code: L25.5; Problem Code Type: ICD-10; Not Available [facility] 2 22:26:51 Allergic contact dermatit is caused by plant material [id number] 061460 Completed 201609/16/2016 Problem Code: L23.7; Problem Code Type: ICD-10; Not Available [facility] 2 22:26:51 Contact dermatit is due to plants, except food Completed 201609/16/2016 Problem Code: 692.6; Problem Code Type: ICD-9; Not Available [facility] 22:26:51 Problem Notes None recorded. Medical Equipment None Reported. Allergies Allergen ID Allergen Name Allergen Category Reaction Reaction Severity Criticality Documentation Date Start Date Code Code System Note Provider Name and Address Organization Details Recorded Time 40802 Product containin g penicilli n (product) medicatio n Not available Not available Not available 10/18/2021 75178 8001 SNOMED Aller gyCod e: ''; Aller gyNam e: 'Peni cilli ns'; Aller gyCon ceptT ype: ''; Not Available [facility] 2 22:54:50 Medications Name Sig Start [...] Available Not Available No t Available dextrometho rphan-guaif enesin 10 mg-100 mg/5 mL oral syrup [...] PF 12/24/2023 completed Dai Vernon APRN [address] [place], [address], [facility] [employer] 12/30/2023 16:09:17 Past Encounters Encounter ID Performer Location Encounter Start Date Encounter Closed Date Diagnosis/Indication Diagnosis SNOMED-CT Code Diagnosis ICD10 Code Diagnosis Note [id number] Dai Vernon APRN [address] [address] 12/24/2023 16:05:38 12/24/2023 16:17:21 Administration of influenza vaccine [id number] Z23 Health Concerns Section Related Observation LastModified by Organization Detai ls LastModified Time None Recorded Concern Status LastModified by Organization Details LastModified Time None Recorded Advance Directives Directive None Recorded Payers Insurance Date Sequence Insurance Name Policy Number Policy Glez Covered Member ID Glez Member ID Guarantor Name 12/31/2023 1 [facility] (MEDICAID HMO) Rina Burciaga [id number] Rina Burciaga OBGyn Episode No OBEpisode recorded.
--- OUTSIDE RECORDS SUMMARY | 2024-08-28 15:05 | XMS_ITS | Clinical Summary ---
Author Organization Healthcare Address [address] [id number] Care Team Providers Care Flake Miller Helper Name Role Phone Earl Maki MD Primary Care Provider + [phone] Family History Medical History Relation Name Comments [...] of Treatment Not on file Care Teams Flake Miller Helper Relationship Specialty Start Date End Date Earl Maki MD [address] [place] [id number] PCP - General 06/25/20
--- NOTE | 2024-08-28 15:36 | EXP.PAIN.SOA ---
[facility] Disclaimer: The information contained in this section may have been updated after the patient was seen, as this information can be updated by other users. Medical History Lung cancer screening declined by patient Breast cancer screening declined Breast cancer screening Colon cancer screening declined DDD (degenerative disc disease), lumbar Vitamin D deficiency HLD (hyperlipidemia) Osteopenia COPD exacerbation COPD (chronic obstructive pulmonary disease) GERD (gastroesophageal reflux disease) Hypothyroidism Family History Other Unknown family medical history Social History Smoking Status: Current every day smoker tobacco type: cigarettes packs per day: 1 alcohol intake: never substance use type: denies use current occupational status: other Travel in the last 8 weeks?: None PM Subjective & Objective Subjective Subjective:: Patient is a pleasant 64-year-old female who presents today for medication refill and follow-up. She does rate her pain today a 4 out of 10. She states from our last appointment her significant other has passed from his cancer. Patient is emotional during today's visit. Patient is currently managed with gabapentin 800 mg 4 times a day and [place] 7.5 mg 5 times a day from our office. She denies any side effects. She does state that a cream that we had ordered several months ago she is ran out of it and would like refills. Patient is not sure what the name of this medication was. Her Sky has been reviewed and is appropriate. Review of Systems: General: No recent weight changes, no fever, no sleep disturbances Respiratory: No cough, no shortness of air, no recurring pulmonary infections Cardiovascular/peripheral vascular: No chest pain, no palpitations, no edema, no shortness of breath Gastrointestinal: No new onset incontinence, normal bowel movements reported Genitourinary: No new onset incontinence Musculoskeletal: Low back pain Psychiatric: [Normal mood/affect] Neurological: [Denies weakness in extremities], [denies balance issues] Pain at rest (0-10 scale): 4 Objective Objective:: Physical Exam: General: Alert and oriented x3, no acute distress, pleasant and cooperative Lungs: Respirations even and unlabored, symmetrical chest expansion Eyes: PERRL Musculoskeletal: Flexion and extension of lumbar [spine] somewhat guarded secondary to pain, [antalgic gait noted] Neurological: Speech clear, no gross sensory deficit Has patient had previous pain injection?: No Conservative treatment options previously tried: Home exercise plan Length of treatment: Longer than 12 weeks Meds Home Medications and Allergies Home Medications ?Medication ?Instructions ?Recorded ?Confirmed ?Type albuterol sulfate 90 mcg/actuation See Rx Instructions .Route 02/15/23 08/28/24 Rx aerosol inhaler .COMPLEX Breathing problems #8.5 grams atorvastatin 40 mg tablet 40 mg PO DAILY #90 tabs 01/28/24 08/28/24 Rx ergocalciferol (vitamin D2) 50 mcg 50 mcg PO DAILY #90 caps 01/28/24 08/28/24 Rx (2,000 unit) capsule fluticasone 100 mcg-salmeterol 50 See Rx Instructions .Route 01/28/24 08/28/24 Rx mcg/dose blistr powdr for .COMPLEX #60 blisters inhalation (Advair Diskus) fluticasone propionate 50 See Rx Instructions .Route 01/28/24 08/28/24 Rx mcg/actuation nasal .COMPLEX allergies #16 grams spray,suspension ipratropium 0.5 mg-albuterol 3 mg 3 ml inhalation Q4-6H PRN 01/28/24 08/28/24 Rx (2.5 mg base)/3 mL nebulization shortness of breath or wheezing soln #180 mL tizanidine 4 mg capsule 4 mg PO TID Pain 90 days #270 caps 01/28/24 08/28/24 Rx montelukast 10 mg tablet See Rx Instructions .Route 04/28/24 08/28/24 Rx .COMPLEX #90 tabs alendronate 70 mg tablet 70 mg PO WEEKLY #5 tabs 05/12/24 08/28/24 Rx hydroxyzine HCl 50 mg tablet 50 mg PO HS #30 tabs 05/12/24 08/28/24 Rx gabapentin 800 mg tablet 800 mg PO QID #120 tabs 07/23/24 08/28/24 Rx (Neurontin) hydrocodone 7.5 mg-acetaminophen 1 tab PO 5XDAY #40 tabs 07/23/24 08/28/24 Rx 325 mg tablet levothyroxine 100 mcg capsule 100 mcg PO DAILY #30 caps 07/25/24 08/28/24 Rx hydrocodone 7.5 mg-acetaminophen 1 tab PO 5XDAY #150 tabs 08/01/24 08/28/24 Rx 325 mg tablet New Prescriptions to Start Prescriptions: Allergies Allergy/AdvReac Type Severity Reaction Status Date / Time Penicillins Allergy Intermediate I-HIVES Verified 05/12/24 13:39 Assessment and Plan *Assessment and plan (1) Lumbar radiculopathy: Status: Acute Category: Medical Code(s): M54.16 - Radiculopathy, lumbar region (2) DDD (degenerative disc disease), lumbar: Status: Acute Category: Medical Code(s): M51.369 - Other intervertebral disc degeneration, lumbar region without mention of lumbar back pain or lower extremity pain Plan We did offer our sincerest condolences on her loss and we did discuss with her increased anxiety and emotional distress that it may be beneficial for her to talk to her primary care about adding oral medications temporarily. We will continue to follow-up on this. I will refill her [place] and gabapentin and provide a 1 month supply of this medication. Patient was counseled that I will fill back in her chart and see if I can find the previous cream that we had ordered for her. Patient will return to clinic in 1 month. Risks and benefits of the medication have been explained in detail to the patient. The patient does understand the risk of dependence on the medication when given over a prolonged period. Patient has been advised of risks of oversedation with the prescribed medication. Narcan has been offered to the paitent in the event of oversedation. Patient has been advised that a family member should also be educated regarding administration of Narcan. The patient has been advised to consult with his/her primary care provider and pharmacist regarding drug-drug interaction of medications currently prescribed. Patient has been prescribed a controlled substance after being counseled on the medication, medication safety, and possible side effects. Opioid contract was reviewed and signed by the patient, and that they have agreed to all of the terms set forth by our compliance program. A UDS is needed to verify patient's compliance with our office pain contract. This is ordered based off specific treatments related to chronic pain with the potential to abuse certain medications. Patient has been instructed to contact the clinic with any concerns before the next appointment. Dr. Watson has reviewed this note and agrees with this plan of care. This note was dictated using voice recognition software and make contain errors or omissions.
== END 2024-08-28 23:59 | disposition home or self-care (01) ==
PROVIDERS: PCP Family Medicine; Visit Provider Nurse Practitioner Family
DX: M51.16 Intervertebral disc disorders with radiculopathy, lumbar region (principal); Z79.891 Long term (current) use of opiate analgesic; Z79.899 Other long term (current) drug therapy
CPT/HCPCS: 99212; G0463

== ENCOUNTER 2024-09-25 12:53 | Outpatient (POV) | payer MEDICAID, SELFPAY ==
--- OUTSIDE RECORDS SUMMARY | 2024-09-25 13:01 | XMS_ITS | Clinical Summary ---
Author Organization Healthcare Address [address] [id number] Care Team Providers Care Applied Technologist Name Role Phone Earl Maki MD Primary Care Provider [phone] Family History Medical History Relation Name Comments [...] of Treatment Not on file Care Teams Applied Technologist Relationship Specialty Start Date End Date Earl Maki MD [address] [place] [id number] PCP - General 06/25/20
--- NOTE | 2024-09-25 13:20 | A.OFFVIS_ITS ---
[facility] Disclaimer: The information contained in this section may have been updated after the patient was seen, as this information can be updated by other users. Medical History Lung cancer screening declined by patient Breast cancer screening declined Breast cancer screening Colon cancer screening declined DDD (degenerative disc disease), lumbar Vitamin D deficiency HLD (hyperlipidemia) Osteopenia COPD exacerbation COPD (chronic obstructive pulmonary disease) GERD (gastroesophageal reflux disease) Hypothyroidism Family History Other Unknown family medical history Social History Smoking Status: Current every day smoker tobacco type: cigarettes packs per day: 1 alcohol intake: never substance use type: denies use current occupational status: other Travel in the last 8 weeks?: None Have you lived/traveled outside [place] in past 30 days?: No Contact w/someone who lives/traveled outside [place] past 30 days?: No Exposure to someone with infectious disease in past 14 days?: No Do you have a fever (greater than 100.4 F or 38 C)?: No Have you tested positive for COVID-19?: No Exposed to someone with COVID-19 in past 14 days?: No Do you have a sore throat?: No Do you have a cough?: No Do you have any weakness?: No Do you have any diarrhea?: No Are you experiencing any unusual bleeding?: No Do you have any muscle aches/pain?: No Do you have any abdominal pain?: No Are you experiencing loss of taste or smell?: No PM Subjective & Objective Subjective Subjective:: Patient is a very pleasant 64-year-old female who presents today for her monthly medication refill and follow-up. She is currently prescribed gabapentin 800 mg 4 times a day, Basalt 7.5 mg 5 times a day and compounded cream. She denies any side effects or changes to her pharmacy. Her Sky has been reviewed and is appropriate. Review of Systems: General: No recent weight changes, no fever, no sleep disturbances Respiratory: No cough, no shortness of air, no recurring pulmonary infections Cardiovascular/peripheral vascular: No chest pain, no palpitations, no edema, no shortness of breath Gastrointestinal: No new onset incontinence, normal bowel movements reported Genitourinary: No new onset incontinence Musculoskeletal: Low back pain Psychiatric: [Normal mood/affect] Neurological: [Denies weakness in extremities], [denies balance issues] Pain at rest (0-10 scale): 4 Objective Objective:: Physical Exam: General: Alert and oriented x3, no acute distress, pleasant and cooperative Lungs: Respirations even and unlabored, symmetrical chest expansion Eyes: PERRL Musculoskeletal: Flexion and extension of lumbar [spine] somewhat guarded secondary to pain, [antalgic gait noted] Neurological: Speech clear, no gross sensory deficit Has patient had previous pain injection?: No Conservative treatment options previously tried: Home exercise plan Length of treatment: Longer than 12 weeks Meds Home Medications and Allergies Home Medications ?Medication ?Instructions ?Recorded ?Confirmed ?Type albuterol sulfate 90 mcg/actuation See Rx Instructions .Route 02/15/23 08/28/24 Rx aerosol inhaler .COMPLEX Breathing problems #8.5 grams atorvastatin 40 mg tablet 40 mg PO DAILY #90 tabs 01/1208/28/24 Rx ergocalciferol (vitamin D2) 50 mcg 50 mcg PO DAILY #90 caps 01/28/24 08/28/24 Rx (2,000 unit) capsule fluticasone 100 mcg-salmeterol 50 See Rx Instructions .Route 01/28/24 08/28/24 Rx mcg/dose blistr powdr for .COMPLEX #60 blisters inhalation (Advair Diskus) fluticasone propionate 50 See Rx Instructions .Route 1 03/30/23 08/28/24 Rx mcg/actuation nasal .COMPLEX allergies #16 grams spray,suspension ipratropium 0.5 mg-albuterol 3 mg 3 ml inhalation Q4-6 H PRN 01/28/24 08/28/24 Rx (2.5 mg base)/3 mL nebulization shortness of breath or wheezing soln #180 mL tizanidine 4 mg capsule 4 mg PO TID Pain 90 days #27 0 caps 01/28/24 08/28/24 Rx montelukast 10 mg tablet See Rx Instructions .Route 0 04/28/24 08/28/24 Rx .COMPLEX #90 tabs alendronate 70 mg tablet 70 mg PO WEEKLY #5 tabs 03/3 1/25 07/17/25 Rx hydrocodone 7.5 mg-acetaminophen 1 tab PO 5XDAY #40 ta bs 07/23/24 08/28/24 Rx 325 mg tablet levothyroxine 100 mcg capsule 100 mcg PO DAILY #30 cap s 07/25/24 08/28/24 Rx hydroxyzine HCl 50 mg tablet See Rx Instructions .Rout e 09/01/24 Rx .COMPLEX #30 tabs gabapentin 800 mg tablet 800 mg PO QID #120 tabs 09/12 06/06 Rx hydrocodone 7.5 mg-acetaminophen 1 tab PO 5XDAY #150 t abs 09/25/24 Rx 325 mg tablet New Prescriptions to Start Prescriptions: gabapentin Diane,Emily A hydrocodone-acetaminophen Diane,Emily A Allergies Allergy/AdvReac Type Severity Reaction Status Date / Time Penicillins Allergy Intermediate I-HIVES Verified 05/12/24 13:39 Assessment and Plan *Assessment and plan (1) Lumbar radiculopathy: Status: Acute Category: Medical Code(s): M54.16 - Radiculopathy, lumbar region (2) DDD (degenerative disc disease), lumbar: Status: Acute Category: Medical Code(s): M51.369 - Other intervertebral disc degeneration, lumbar region without mention of lumbar back pain or lower extremity pain Plan I will refill the patient's Basalt and gabapentin and provide a 1 month supply of these medications. Patient will return to clinic in 1 month. Risks and benefits of the medication have been explained in detail to the patient. The patient does understand the risk of dependence on the medication when given over a prolonged period. Patient has been advised of risks of oversedation with the prescribed medication. Narcan has been offered to the paitent in the event of oversedation. Patient has been advised that a family member should also be educated regarding administration of Narcan. The patient has been advised to consult with his/her primary care provider and pharmacist regarding drug-drug interaction of medications currently prescribed. Patient has been prescribed a controlled substance after being counseled on the medication, medication safety, and possible side effects. Opioid contract was reviewed and signed by the patient, and that they have agreed to all of the term s set forth by our compliance program. A UDS is needed to verify patient's compliance with our office pain contract. This is ordered based off specific treatments related to chronic pain with the p otential to abuse certain medications. Patient has been instructed to contact the clinic with any concerns before the next appointment. Dr. Watson has reviewed this note and agrees with this plan of c are. This note was dictated using voice recognition software and make contain errors or omissions.
[2024-09-25 13:55] VITALS: BP 116/69; PULSE 68; RESP 14; O2SAT 94; BMI 24.2
== END 2024-09-25 23:59 | disposition home or self-care (01) ==
PROVIDERS: PCP Family Medicine; Visit Provider Nurse Practitioner Family
DX: M51.26 Other intervertebral disc displacement, lumbar region (principal); Z79.891 Long term (current) use of opiate analgesic; Z79.899 Other long term (current) drug therapy
CPT/HCPCS: 99212; G0463